=== PATIENT | female | born 1940 | race Caucasian/White ===

== ENCOUNTER 2016-05-26 12:04 | Emergency (ER) | payer MEDICARE, OTHER ==
[2016-05-26 12:42] VITALS: BP 181/79; PULSE 93; RESP 18; TEMP 99.1
[2016-05-26] MEDS ORDERED: DIPH,PERTUS(ACELL)TETVAC-LF 0.5 ML VIAL IM ONE (13:39)
--- NOTE | 2016-05-26 13:44 | ED ---
Wound/Laceration HPI - General Chief Complaint: Wound/Laceration Stated Complaint: laceration Time Seen by Provider: 05/26/16 13:08 Source: patient, RN notes reviewed Mode of arrival: ambulatory Limitations: no limitations - History of Present Illness Initial Comments: Patient is a 76-year-old female presents emergency room for evaluation of left finger laceration. Patient states she was cutting watermelon and sliced her finger. Patient denies any significant pain. Patient denies any numbness or tingling in her finger. Patient states she still has full range of motion of her finger. Patient is not sure when her last tetanus vaccine was. Patient denies any other injuries during incident. Patient denies taking blood thinners. - Related Data Home Medications Medication Instructions Recorded Confirmed Ascorbic Acid [Vitamin C] 500 mg PO DAILY 11/08/15 01/04/16 Multivit with Calcium,Iron,Min 1 each PO DAILY 11/08/15 01/04/16 [Women's Daily Multivitamin] Tums 1 tab PO DIRECTED PRN 01/04/16 01/04/16 Vitamin D (Unknown Dose) 1 cap PO DAILY 01/04/16 01/04/16 Allergies Allergy/AdvReac Type Severity Reaction Status Date / Time levofloxacin [From Levaquin] Allergy Rash/Hives Verified 01/04/16 13:32 Additives in inhalers Allergy Rapid Uncoded 01/04/16 13:32 Heart Rate Review of Systems ROS Statement: Those systems with pertinent positive or pertinent negative responses have been documented in the HPI. ROS Other: All systems not noted in ROS Statement are negative. Past Medical History Past Medical History: GERD/Reflux, Osteoarthritis (OA) Additional Past Medical History / Comment(s): Seasonal allergies, Hiatal Hernia , episode of tachycardia., neck pain in certain positions. History of Any Multi-Drug Resistant Organisms: None Reported Past Surgical History: Hysterectomy Additional Past Surgical History / Comment(s): Colonoscopy, right cataract Past Anesthesia/Blood Transfusion Reactions: Family History of Problems w/ Anesthesia Additional Past Anesthesia/Blood Transfusion Reaction / Comment(s): States the top of her head was numb after cataract surgery. Pt. states her mother's heart stopped during gallbladder surgery. Past Psychological History: No Psychological Hx Reported Smoking Status: Never smoker Past Alcohol Use History: None Reported Past Drug Use History: None Reported - Past Family History Mother Family Medical History: Coronary Artery Disease (CAD) General Exam - General Exam Comments Initial Comments: Sitting in exam room in no acute distress. Limitations: no limitations General appearance: alert, in no apparent distress Head exam: Present: atraumatic, normocephalic, normal inspection Eye exam: Present: normal appearance ENT exam: Present: normal exam Neck exam: Present: normal inspection Respiratory exam: Present: normal lung sounds bilaterally. Absent: respiratory distress Cardiovascular Exam: Present: regular rate, normal rhythm, normal heart sounds Left Hand Wrist exam: Present: full ROM, laceration (2 cm open laceration on the palmar portion of the proximal phalanx of the fourth digit). Absent: tenderness Neuro motor exam: Present: wrist extension intact, thumb opposition intact, thumb IP flexion intact, thumb adduction intact, fingers 2-5 abduction intact Vascular: Present: normal capillary refill (Capillary refill less than 2 seconds ), radial pulse (2+), ulnar pulse (2+) Back exam: Present: normal inspection Neurological exam: Present: alert, oriented X3, CN II-XII intact, normal gait Psychiatric exam: Present: normal affect, normal mood Skin exam: Present: warm, dry. Absent: rash Course Vital Signs 05/26/16 12:40 Temperature 99.1 F Pulse Rate 93 Respiratory 18 Rate Blood Pressure 181/79 O2 Sat by Pulse 98 Oximetry Procedures - Laceration Laceration #1 Consent Obtained: verbal consent Indication: laceration Site: other (left fourth digit) Size (cm): 2 Description: linear Depth: simple, single layer Anesthetic Used: lidocaine 1% Anesthesia Technique: local infiltration Amount (mls): 1 Pre-repair: wound explored, irrigated extensively Type of Sutures: nylon Size of Sutures: 5-0 Number of Sutures: 7 Technique: simple, interrupted Patient Tolerated Procedure: well, no complications Medical Decision Making - Medical Decision Making Patient is 76-year-old female since emergency room for violation finger laceration. Laceration repaired with sutures. Patient updated on her tetanus vaccine. Advised patient to return in 10-12 days for suture removal. Patient has full range of motion of finger. Strength intact. Patient states she understand everything that was discussed with her. Return parameters discussed. Case discussed with Dr. Ricketts. Disposition Clinical Impression: Finger laceration Disposition: HOME SELF-CARE Condition: Good Instructions: Care For Your Stitches (ED), Laceration (ED) Additional Instructions: Keep suture area clean and dry. Clean suture area with a damp cloth. Please return in 10-12 days for suture removal. Take Tylenol or Motrin as needed for discomfort. Please follow up with primary care provider in 1-2 days. If any new symptom arises or symptoms worsen, return to ER as soon as possible. Referrals: Gilberto Fowler III, MD [Primary Care Provider] - 1-2 days Time of Disposition: 14:31
== END 2016-05-26 14:43 | disposition home or self-care (01) ==
LOC: EC 12:04
DX: S61.215A Laceration without foreign body of left ring finger without damage to nail, initial encounter (principal); Z23 Encounter for immunization; Z79.899 Other long term (current) drug therapy; Z88.1 Allergy status to other antibiotic agents; Z88.8 Allergy status to other drugs, medicaments and biological substances; W26.0XXA Contact with knife, initial encounter; Y93.89 Activity, other specified
CPT/HCPCS: 12001; 90471; 90715; 99282

== ENCOUNTER → 2016-09-17 | Outpatient (CLI) | payer MEDICARE ==
[2016-09-17 10:41] LABS: Basophils % (A) 1 %; CH 30.6; CHCM 32.9; Eosinophils # (A) 0.1 k/uL (0-0.7); Eosinophils % (A) 2 %; HDW 2.14; HGB 14.3 gm/dL (11.4-16.0); Luc # (Auto) 0.13; Luc % (Auto) 3; Lymphocytes % (A) 24 %; MCH 31.8 pg (25.0-35.0); MCV 93.6 fL (80.0-100.0); Mean Platelet Volume 9.9; Monocytes # (A) 0.5 k/uL (0-1.0); Monocytes % (A) 11 %; Neutrophils # (A) 2.4 k/uL (1.3-7.7); Neutrophils % (A) 59 %; RBC 4.49 m/uL (3.80-5.40); RDW 13.9 % (11.5-15.5); WBC 4.1 k/uL (3.8-10.6); WBC (Perox) 4.13
[2016-09-17 11:14] LABS: ALT 20 U/L (9-52); AST 26 U/L (14-36); Alkaline Phosphatase 75 U/L (38-126); Anion Gap 12 mmol/L; Blood Urea Nitrogen 14 mg/dL (7-17); Calcium 9.2 mg/dL (8.4-10.2); Carbon Dioxide 23 mmol/L (22-30); Chloride 106 mmol/L (98-107); Cholesterol 225 mg/dL (<200); Glucose 88 mg/dL (74-99); HDL Cholesterol 65 mg/dL (40-60); Non-African American GFR(MDRD) >60 (>60 ml/min/1.73 sqM); Potassium 4.9 mmol/L (3.5-5.1); Sodium 141 mmol/L (137-145); Total Bilirubin 0.7 mg/dL (0.2-1.3); Total Protein 7.3 g/dL (6.3-8.2); Triglycerides 83 mg/dL (<150)
== END | disposition home or self-care (01) ==
LOC: LABWHC1 09:45
PROVIDERS: ATTEND Family Medicine
DX: R10.11 Right upper quadrant pain (principal); N39.0 Urinary tract infection, site not specified; R35.0 Frequency of micturition; S39.012A Strain of muscle, fascia and tendon of lower back, initial encounter; Z48.24 Encounter for aftercare following lung transplant
CPT/HCPCS: 36415; 80053; 80061; 85025

== ENCOUNTER → 2016-09-23 | Outpatient (CLI) | payer MEDICARE ==
--- NOTE | 2016-09-23 07:32 | US ---
EXAMINATION TYPE: US abdomen limited DATE OF EXAM: 09/23/2016 COMPARISON: CT from 2011 CLINICAL HISTORY: RUQ Pain R10.11. EXAM MEASUREMENTS: Liver Length: 10.9 cm Gallbladder Wall: 0.2 cm CBD: 0.4 cm Right Kidney: 10.6 x 3.6 x 5.5 cm Pancreas: visualized portions wnl Liver: wnl Gallbladder: No stones seen Evidence for sonographic Schmitz's sign: No CBD: wnl Right Kidney: No hydronephrosis or masses seen as visualized, lower pole obscured by bowel Limited views of the pancreas are unremarkable. The liver is normal in size without biliary dilatation. The gallbladder is normal without evidence of cholelithiasis. The distal common hepatic duct measures 4 mm. The gallbladder wall measures 2 mm. There is no sonographic Schmitz's sign. The right kidney is unremarkable. IMPRESSION: NORMAL RIGHT UPPER QUADRANT ULTRASOUND.
== END | disposition home or self-care (01) ==
LOC: RADUSWWP 06:51
PROVIDERS: ATTEND Family Medicine
DX: R10.11 Right upper quadrant pain (principal)
CPT/HCPCS: 76705

== ENCOUNTER 2016-10-01 06:47 | Inpatient (IN) | payer MEDICARE ==
[2016-10-01] MEDS ORDERED: DILTIAZEM 5 MG/ML 5 ML VIAL IVP STA ×2 (07:12→08:18)
[2016-10-01] MEDS ORDERED: SODIUM CHLORIDE 0.9% 1,000 ML IV STA ×2 (07:19)
[2016-10-01 07:31] LABS: Basophils % (A) 1 %; CH 31.1; CHCM 33.1; Eosinophils # (A) 0.1 k/uL (0-0.7); Eosinophils % (A) 2 %; HCT 42.5 % (34.0-46.0); HDW 2.15; HGB 14.4 gm/dL (11.4-16.0); Luc # (Auto) 0.19; Luc % (Auto) 4; Lymphocytes # (A) 1.4 k/uL (1.0-4.8); Lymphocytes % (A) 27 %; MCHC 33.9 g/dL (31.0-37.0); MCV 94.5 fL (80.0-100.0); Mean Platelet Volume 8.5; Monocytes # (A) 0.5 k/uL (0-1.0); Monocytes % (A) 9 %; Neutrophils # (A) 2.9 k/uL (1.3-7.7); Neutrophils % (A) 57 %; RDW 14.1 % (11.5-15.5); WBC (Perox) 4.74
[2016-10-01 07:36] LABS: Partial Thromboplastin Time 22.6 sec (22.0-30.0); Prothrombin Time 10.2 sec (9.0-12.0)
[2016-10-01 07:37] LABS: ALT 42 U/L (9-52); AST 33 U/L (14-36); Alkaline Phosphatase 81 U/L (38-126); Anion Gap 11 mmol/L; Blood Urea Nitrogen 21 mg/dL (7-17); Calcium 8.9 mg/dL (8.4-10.2); Carbon Dioxide 24 mmol/L (22-30); Chloride 109 mmol/L (98-107); Glucose 100 mg/dL (74-99); Magnesium 1.8 mg/dL (1.6-2.3); Non-African American GFR(MDRD) >60 (>60 ml/min/1.73 sqM); Phosphorous 3.6 mg/dL (2.5-4.5); Potassium 3.7 mmol/L (3.5-5.1); Sodium 144 mmol/L (137-145); Total Bilirubin 0.6 mg/dL (0.2-1.3); Total Protein 6.9 g/dL (6.3-8.2)
[2016-10-01 07:50] LABS: Creatine Kinase 78 U/L (30-135)
--- NOTE | 2016-10-01 07:52 | ED ---
General Adult HPI - General Chief complaint: Chest Pain Stated complaint: Chest Pain Time Seen by Provider: 10/01/16 07:13 Source: patient, RN notes reviewed, old records reviewed Mode of arrival: wheelchair Limitations: no limitations - History of Present Illness Initial comments: This is a 76-year-old female to the ER for evaluation. Presents today for evaluation of heart racing and palpitations. Patient denies formal diagnosis. Patient states she had some heart racing when she was younger. Couple episodes of the past week where she felt like she was going pass out but denies chest pain or shortness of breath. No new medications, no change in medications. No fevers or cough or congestion. No recent travel history or sick contacts - Related Data Home Medications Medication Instructions Recorded Confirmed Multivit with Calcium,Iron,Min 1 tab PO DAILY 11/08/15 10/01/16 [Women's Daily Multivitamin] Areds 2 Vitamin 1 tab PO Q7D 10/01/16 10/01/16 Cholecalciferol [Vitamin D3] 1,000 unit PO DAILY 10/01/16 10/01/16 Allergies Allergy/AdvReac Type Severity Reaction Status Date / Time levofloxacin [From Levaquin] Allergy Rash/Hives Verified 10/01/16 07:29 Additives in inhalers Allergy Rapid Uncoded 10/01/16 06:52 Heart Rate Review of Systems ROS Statement: Those systems with pertinent positive or pertinent negative responses have been documented in the HPI. ROS Other: All systems not noted in ROS Statement are negative. Past Medical History Past Medical History: GERD/Reflux, Osteoarthritis (OA) Additional Past Medical History / Comment(s): Seasonal allergies, Hiatal Hernia , episode of tachycardia., neck pain in certain positions. History of Any Multi-Drug Resistant Organisms: None Reported Past Surgical History: Hysterectomy Additional Past Surgical History / Comment(s): Colonoscopy, right cataract Past Anesthesia/Blood Transfusion Reactions: Family History of Problems w/ Anesthesia Additional Past Anesthesia/Blood Transfusion Reaction / Comment(s): States the top of her head was numb after cataract surgery. Pt. states her mother's heart stopped during gallbladder surgery. Past Psychological History: No Psychological Hx Reported Smoking Status: Never smoker Past Alcohol Use History: None Reported Past Drug Use History: None Reported - Past Family History Mother Family Medical History: Coronary Artery Disease (CAD) General Exam Limitations: no limitations General appearance: alert, in no apparent distress, anxious Head exam: Present: atraumatic, normocephalic, normal inspection Eye exam: Present: normal appearance, PERRL, EOMI. Absent: scleral icterus, conjunctival injection, periorbital swelling ENT exam: Present: normal exam, mucous membranes moist Neck exam: Present: normal inspection. Absent: tenderness, meningismus, lymphadenopathy Respiratory exam: Present: normal lung sounds bilaterally. Absent: respiratory distress, wheezes, rales, rhonchi, stridor Cardiovascular Exam: Present: tachycardia, irregular rhythm, normal heart sounds. Absent: systolic murmur, diastolic murmur, rubs, gallop, clicks GI/Abdominal exam: Present: soft, normal bowel sounds. Absent: distended, tenderness, guarding, rebound, rigid Extremities exam: Present: normal inspection, full ROM, normal capillary refill. Absent: tenderness, pedal edema, joint swelling, calf tenderness Back exam: Present: normal inspection Neurological exam: Present: alert, oriented X3, CN II-XII intact Psychiatric exam: Present: normal affect, normal mood Skin exam: Present: warm, dry, intact, normal color. Absent: rash Course Vital Signs 10/01/16 10/01/16 10/01/16 06:49 06:55 06:58 Temperature 97.8 F 98.0 F Pulse Rate 128 H 140 H Respiratory 18 17 18 Rate Blood Pressure 189/90 150/74 O2 Sat by Pulse 100 96 Oximetry 10/01/16 10/01/16 10/01/16 07:13 07:15 07:16 Temperature Pulse Rate 142 H 135 H 114 H Respiratory 20 20 20 Rate Blood Pressure 158/82 162/55 129/60 O2 Sat by Pulse 99 100 100 Oximetry 10/01/16 10/01/16 10/01/16 07:30 07:35 07:39 Temperature Pulse Rate 120 H 128 H 100 Respiratory 18 18 18 Rate Blood Pressure 132/64 110/58 127/57 O2 Sat by Pulse 100 100 100 Oximetry 10/01/16 10/01/16 10/01/16 07:40 08:12 08:16 Temperature Pulse Rate 130 H 120 H 113 H Respiratory 18 18 Rate Blood Pressure 132/70 135/68 O2 Sat by Pulse 99 100 Oximetry - Reevaluation(s) Reevaluation #1: 10/01/16 09:22 Patient having adequate rate control at this time. Reevaluation #2: 10/01/16 09:22 Discussed with family greater than 50 minutes regarding diagnosis, prognosis, questions answered EKG Findings - EKG Comments: EKG Findings:: EKG shows A. fib with RVR rate 153, QRS 66, QTc 463 Medical Decision Making - Medical Decision Making 76 female in the ER for evaluation of palpitations heart racing, positive A. fib with RVR. Patient will be admitted for cardiology evaluation. Telemetry and trending of troponins - Lab Data Result diagrams: 10/01/16 07:09 10/01/16 07:09 Lab Results 10/01/16 10/01/16 10/01/16 Range/Units 07:09 07:09 07:09 WBC 5.0 (3.8-10.6) k/uL RBC 4.50 (3.80-5.40) m/uL Hgb 14.4 (11.4-16.0) gm/dL Hct 42.5 (34.0-46.0) % MCV 94.5 (80.0-100.0) fL MCH 32.0 (25.0-35.0) pg MCHC 33.9 (31.0-37.0) g/dL RDW 14.1 (11.5-15.5) % Plt Count 201 (150-450) k/uL Neutrophils % 57 % Lymphocytes % 27 % Monocytes % 9 % Eosinophils % 2 % Basophils % 1 % Neutrophils # 2.9 (1.3-7.7) k/uL Lymphocytes # 1.4 (1.0-4.8) k/uL Monocytes # 0.5 (0-1.0) k/uL Eosinophils # 0.1 (0-0.7) k/uL Basophils # 0.0 (0-0.2) k/uL PT (9.0-12.0) sec INR (<1.2) APTT (22.0-30.0) sec Sodium 144 (137-145) mmol/L Potassium 3.7 (3.5-5.1) mmol/L Chloride 109 H (98-107) mmol/L Carbon Dioxide 24 (22-30) mmol/L Anion Gap 11 mmol/L BUN 21 H (7-17) mg/dL Creatinine 0.68 (0.52-1.04) mg/dL Est GFR (MDRD) Af Amer >60 (>60 ml/min/1.73 sqM) Est GFR (MDRD) Non-Af >60 (>60 ml/min/1.73 sqM) Glucose 100 H (74-99) mg/dL Calcium 8.9 (8.4-10.2) mg/dL Phosphorus 3.6 (2.5-4.5) mg/dL Magnesium 1.8 (1.6-2.3) mg/dL Total Bilirubin 0.6 (0.2-1.3) mg/dL AST 33 (14-36) U/L ALT 42 (9-52) U/L Alkaline Phosphatase 81 (38-126) U/L Total Creatine Kinase 78 (30-135) U/L CK-MB (CK-2) 1.2 (0.0-2.4) ng/mL CK-MB (CK-2) Rel Index 1.5 Troponin I <0.012 (0.000-0.034) ng/mL Total Protein 6.9 (6.3-8.2) g/dL Albumin 4.1 (3.5-5.0) g/dL TSH 3.580 (0.465-4.680) mIU/L 10/01/16 Range/Units 07:09 WBC (3.8-10.6) k/uL RBC (3.80-5.40) m/uL Hgb (11.4-16.0) gm/dL Hct (34.0-46.0) % MCV (80.0-100.0) fL MCH (25.0-35.0) pg MCHC (31.0-37.0) g/dL RDW (11.5-15.5) % Plt Count (150-450) k/uL Neutrophils % % Lymphocytes % % Monocytes % % Eosinophils % % Basophils % % Neutrophils # (1.3-7.7) k/uL Lymphocytes # (1.0-4.8) k/uL Monocytes # (0-1.0) k/uL Eosinophils # (0-0.7) k/uL Basophils # (0-0.2) k/uL PT 10.2 (9.0-12.0) sec INR 1.0 (<1.2) APTT 22.6 (22.0-30.0) sec Sodium (137-145) mmol/L Potassium (3.5-5.1) mmol/L Chloride (98-107) mmol/L Carbon Dioxide (22-30) mmol/L Anion Gap mmol/L BUN (7-17) mg/dL Creatinine (0.52-1.04) mg/dL Est GFR (MDRD) Af Amer (>60 ml/min/1.73 sqM) Est GFR (MDRD) Non-Af (>60 ml/min/1.73 sqM) Glucose (74-99) mg/dL Calcium (8.4-10.2) mg/dL Phosphorus (2.5-4.5) mg/dL Magnesium (1.6-2.3) mg/dL Total Bilirubin (0.2-1.3) mg/dL AST (14-36) U/L ALT (9-52) U/L Alkaline Phosphatase (38-126) U/L Total Creatine Kinase (30-135) U/L CK-MB (CK-2) (0.0-2.4) ng/mL CK-MB (CK-2) Rel Index Troponin I (0.000-0.034) ng/mL Total Protein (6.3-8.2) g/dL Albumin (3.5-5.0) g/dL TSH (0.465-4.680) mIU/L - Radiology Data Radiology results: report reviewed (Chest x-ray is negative for acute disease), image reviewed Critical Care Time Critical Care Time: Yes Total Critical Care Time: 31 Disposition Clinical Impression: Chest pain, Atrial fibrillation with RVR Disposition: ADMITTED IP TO THIS HOSP Condition: Fair Instructions: Chest Pain (ED) Referrals: Gilberto Fowler III, MD [Primary Care Provider] - 1-2 days
[2016-10-01] MEDS ORDERED: DILTIAZEM 125 MG in SODIUM CHLORIDE 0.9% 100 ML IV ONE (08:00)
[2016-10-01 08:03] LABS: Creatine Kinase MB 1.2 ng/mL (0.0-2.4); Troponin I <0.012 ng/mL (0.000-0.034)
[2016-10-01] MEDS ORDERED: NITROGLYCERIN SL TABS 0.4 MG TAB SUBLINGUAL PRN (09:19)
[2016-10-01] MEDS ORDERED: ASPIRIN 81 MG CHEW PO STA (09:19)
[2016-10-01] MEDS ORDERED: HEPARIN SODIUM,PORCINE 5,000 UNIT/ML 1 ML VIAL IV PRN (09:19)
[2016-10-01] MEDS ORDERED: HEPARIN SODIUM,PORCINE 5,000 UNIT/ML 1 ML VIAL IV ONE (09:19)
[2016-10-01] MEDS ORDERED: HEPARIN SODIUM,PORCINE/D5W PMX 25,000 UNIT in DEXTROSE/WATER 1 500ML.BAG IV SCH (09:30)
[2016-10-01] MEDS ORDERED: APIXABAN 5 MG TAB PO STA (12:50)
[2016-10-01] MEDS ORDERED: METOPROLOL TARTRATE 50 MG TAB PO STA (13:00)
[2016-10-01 14:06] VITALS: RESP 16
--- NOTE | 2016-10-01 14:08 | P.HPIM ---
History of Present Illness 76-year-old female came in with compensative heart racing and palpitations, and chest pressure like sensation patient does not have any significant past medical history. Patient is found to be in atrial fibrillation presently sinus rhythm on 20 20 mg IV piggyback off Cardizem. Patient had chest pressure like sensation. Patient was treated for urinary tract infection last week. Patient denied any fever presently patient denied any specific pain dysuria. Patient denied any nausea vomiting. Patient is not dehydrated at this point of time creatinine within normal limits. And patient is being switched to metoprolol 50 twice a day, will check for eliquis approval, she is approved eliquispatient will be discharged on eliquis. Echo cardiac exam will be obtained to assess LV function and any valvular abnormalities. Patient denied any shortness of breath orthopnea or PND. Review of Systems REVIEW OF SYSTEMS: CONSTITUTIONAL: No fever, no malaise, no fatigue. HEENT: No recent visual problems or hearing problems. Denied any sore throat. CARDIOVASCULAR: No orthopnea, PND, , no syncope. PULMONARY: No shortness of breath, no cough, no hemoptysis. GASTROINTESTINAL: No diarrhea, no nausea, no vomiting, no abdominal pain. Normoactive bowel sounds. NEUROLOGICAL: No headaches, no weakness, no numbness. HEMATOLOGICAL: Denies any bleeding or petechiae. GENITOURINARY: Denies any burning micturition, frequency, or urgency. MUSCULOSKELETAL/RHEUMATOLOGICAL: Denies any joint pain, swelling, or any muscle pain. ENDOCRINE: Denies any polyuria or polydipsia. The rest of the 14-point review of systems is negative. Past Medical History Past Medical History: GERD/Reflux, Osteoarthritis (OA) Additional Past Medical History / Comment(s): Seasonal allergies, Hiatal Hernia , episode of tachycardia., neck pain in certain positions. History of Any Multi-Drug Resistant Organisms: None Reported Past Surgical History: Hysterectomy Additional Past Surgical History / Comment(s): Colonoscopy, right cataract Past Anesthesia/Blood Transfusion Reactions: Family History of Problems w/ Anesthesia Additional Past Anesthesia/Blood Transfusion Reaction / Comment(s): States the top of her head was numb after cataract surgery. Pt. states her mother's heart stopped during gallbladder surgery. Past Psychological History: No Psychological Hx Reported Smoking Status: Never smoker Past Alcohol Use History: None Reported Past Drug Use History: None Reported - Past Family History Mother Family Medical History: Coronary Artery Disease (CAD) Medications and Allergies Home Medications Medication Instructions Recorded Confirmed Type Multivit with Calcium,Iron,Min 1 tab PO DAILY 11/08/15 10/01/16 History [Women's Daily Multivitamin] Areds 2 Vitamin 1 tab PO Q7D 10/01/16 10/01/16 History Cholecalciferol [Vitamin D3] 1,000 unit PO DAILY 10/01/16 10/01/16 History Allergies Allergy/AdvReac Type Severity Reaction Status Date / Time [facility] Allergy Rash/Hives Verified 10/01/16 07:29 Additives in inhalers Allergy Rapid Uncoded 10/01/16 06:52 Heart Rate Physical Exam Vitals: Vital Signs Temp Pulse Resp BP Pulse Ox 10/01/16 13:15 98.9 F 70 18 119/60 97 10/01/16 12:26 98.8 F 60 18 110/74 97 10/01/16 11:26 62 18 122/60 62 L 10/01/16 10:46 78 18 109/74 97 10/01/16 10:26 82 18 128/59 100 10/01/16 10:06 83 18 128/63 99 10/01/16 09:46 88 18 121/57 98 10/01/16 09:26 78 18 119/58 100 10/01/16 09:06 98.0 F 98 18 117/58 99 10/01/16 08:46 98 18 110/80 98 10/01/16 08:26 98 18 103/52 100 10/01/16 08:16 113 H 18 135/68 100 10/01/16 08:12 120 H 18 132/70 99 10/01/16 08:01 118 H 18 138/64 100 10/01/16 07:56 112 H 18 138/70 100 10/01/16 07:51 120 H 18 126/64 100 10/01/16 07:46 114 H 18 133/77 100 10/01/16 07:40 130 H 10/01/16 07:39 100 18 127/57 100 10/01/16 07:35 128 H 18 110/58 100 10/01/16 07:30 120 H 18 132/64 100 10/01/16 07:16 114 H 20 129/60 100 10/01/16 07:15 135 H 20 162/55 100 10/01/16 07:13 142 H 20 158/82 99 10/01/16 06:58 98.0 F 140 H 18 150/74 96 10/01/16 06:55 17 10/01/16 06:49 97.8 F 128 H 18 189/90 100 Intake and Output 09/30/16 10/01/16 10/01/16 22:59 06:59 14:59 Intake Total 9.833 Balance 9.833 Intake: Intake, IV Titration 9.833 Amount Diltiazem 125 mg In 9.833 Sodium Chloride 0.9% 100 ml @ 5 MG/HR 5 mls/hr IV .Q24H ONE Rx#:[id number] Other: Weight 68.039 kg PHYSICAL EXAMINATION: GENERAL: The patient is alert and oriented x3, not in any acute distress. Well developed, well nourished. HEENT: Pupils are round and equally reacting to light. EOMI. No scleral icterus. No conjunctival pallor. Normocephalic, atraumatic. No pharyngeal erythema. No thyromegaly. CARDIOVASCULAR: S1 and S2 present. No murmurs, rubs, or gallops. PULMONARY: Chest is clear to auscultation, no wheezing or crackles. ABDOMEN: Soft, nontender, nondistended, normoactive bowel sounds. No palpable organomegaly. MUSCULOSKELETAL: No joint swelling or deformity. EXTREMITIES: No cyanosis, clubbing, or pedal edema. NEUROLOGICAL: Gross neurological examination did not reveal any focal deficits. SKIN: No rashes. Results CBC & Chem 7: 10/01/16 07:09 10/01/16 07:09 Labs: Abnormal Lab Results - Last 24 Hours (Table) 10/01/16 10/01/16 Range/Units 07:09 13:17 APTT 59.2 H (22.0-30.0) sec Chloride 109 H (98-107) mmol/L BUN 21 H (7-17) mg/dL Glucose 100 H (74-99) mg/dL Assessment and Plan Plan: 1 New-onset atrial fibrillation: Patient will be started on metoprolol and Cardizem will will be discontinued. Anticoagulations as mentioned in the interval history. TSH was ordered. #2 hyperchloremia due to IV fluids which will be discontinued. #3 chest pain probably related to palpitations.
[2016-10-01 14:25] LABS: Creatine Kinase MB 1.1 ng/mL (0.0-2.4); Troponin I 0.015 ng/mL (0.000-0.034)
[2016-10-01] MEDS: APIXABAN 5 MG TAB PO SCH ×2 (14:52→21:05)
--- NOTE | 2016-10-01 15:27 | P.CRDCN ---
History of Present Illness Consult date: 10/01/16 History of present illness: 76-year-old female with no significant past medical history except intermittent palpitations and " tachycardias", woke up around 5:00 last night with complaints of palpitations. Patient has some chest tightness and shortness of breath. Patient was given IV Cardizem and she converted back to sinus rhythm. Patient is currently maintaining sinus rhythm and is feeling well. She is on IV heparin. She is being considered for Eliquis. Her cardiac enzymes are negative. Echocardiogram was done but results are pending at this time. She doesn't seem to be in acute distress. Review of Systems REVIEW OF SYSTEMS: CONSTITUTIONAL:. Patient is doing well. No complaints of fever or chills EYES: Denies diplopia, blurring of vision EARS, NOSE, MOUTH, THROAT: Denies headaches, denies sore throat. CARDIOVASCULAR: As per HPI RESPIRATORY: Denies shortness of breath, denies cough. GASTROINTESTINAL: Denies change in appetite, denies abdominal pain, denies diarrhea GENITOURINARY: Denies hematuria, denies infections. MUSKULOSKELETAL: Denies pain, denies swelling. Denies any cramps or claudication INTEGUMENTARY: Denies rash, denies eczema. NEUROLOGICAL: Denies focal weakness, or visual disturbance. Denies any dizziness or syncope PSYCHIATRIC: Denies anxiety, denies depression. HEMATOLOGIC/LYMPHATIC: Denies any bleeding, denies enlarged lymph nodes. Past Medical History Past Medical History: GERD/Reflux, Osteoarthritis (OA) Additional Past Medical History / Comment(s): Seasonal allergies, Hiatal Hernia , episode of tachycardia., neck pain in certain positions.boipsy on right foot and under left breast History of Any Multi-Drug Resistant Organisms: None Reported Past Surgical History: Hysterectomy Additional Past Surgical History / Comment(s): Colonoscopy, cataract removed for both eyes Past Anesthesia/Blood Transfusion Reactions: Family History of Problems w/ Anesthesia Additional Past Anesthesia/Blood Transfusion Reaction / Comment(s): States the top of her head was numb after cataract surgery. Pt. states her mother's heart stopped during gallbladder surgery. Smoking Status: Never smoker - Past Family History Mother Family Medical History: Coronary Artery Disease (CAD) Medications and Allergies Home Medications Medication Instructions Recorded Confirmed Type Multivit with Calcium,Iron,Min 1 tab PO DAILY 11/08/15 10/01/16 History [Women's Daily Multivitamin] Areds 2 Vitamin 1 tab PO Q7D 10/01/16 10/01/16 History Cholecalciferol [Vitamin D3] 1,000 unit PO DAILY 10/01/16 10/01/16 History Allergies Allergy/AdvReac Type Severity Reaction Status Date / Time levofloxacin [From Levaquin] Allergy Rash/Hives Verified 10/01/16 07:29 Additives in inhalers Allergy Rapid Uncoded 10/01/16 06:52 Heart Rate Physical Exam Vitals: Vital Signs Temp Pulse Pulse Resp BP BP Pulse Ox 10/01/16 14:00 97 F L 69 16 123/58 99 10/01/16 13:15 98.9 F 70 18 119/60 97 10/01/16 12:26 98.8 F 60 18 110/74 97 10/01/16 11:26 62 18 122/60 62 L 10/01/16 10:46 78 18 109/74 97 10/01/16 10:26 82 18 128/59 100 10/01/16 10:06 83 18 128/63 99 10/01/16 09:46 88 18 121/57 98 10/01/16 09:26 78 18 119/58 100 10/01/16 09:06 98.0 F 98 18 117/58 99 10/01/16 08:46 98 18 110/80 98 10/01/16 08:26 98 18 103/52 100 10/01/16 08:16 113 H 18 135/68 100 10/01/16 08:12 120 H 18 132/70 99 10/01/16 08:01 118 H 18 138/64 100 10/01/16 07:56 112 H 18 138/70 100 10/01/16 07:51 120 H 18 126/64 100 10/01/16 07:46 114 H 18 133/77 100 10/01/16 07:40 130 H 10/01/16 07:39 100 18 127/57 100 10/01/16 07:35 128 H 18 110/58 100 10/01/16 07:30 120 H 18 132/64 100 10/01/16 07:16 114 H 20 129/60 100 10/01/16 07:15 135 H 20 162/55 100 10/01/16 07:13 142 H 20 158/82 99 10/01/16 06:58 98.0 F 140 H 18 150/74 96 10/01/16 06:55 17 10/01/16 06:49 97.8 F 128 H 18 189/90 100 Intake and Output 10/01/16 10/01/16 10/01/16 06:59 14:59 22:59 Intake Total 89.529 Balance 89.529 Intake: Intake, IV Titration 89.529 Amount Diltiazem 125 mg In 9.833 Sodium Chloride 0.9% 100 ml @ 5 MG/HR 5 mls/hr IV .Q24H [facility] Rx#:[id number] Heparin Sodium,Porcine/ 79.696 D5w Pmx 25,000 unit In Dextrose/Water 1 500ml. bag @ 12 UNITS/KG/HR 16. 32 mls/hr IV .Q24H [facility] Rx #:[id number] Other: Voiding Method Toilet Weight 68.039 kg GENERAL EXAM: Patient is alert and oriented and doesn't appear to be in any acute distress HEENT: Normocephalic. Normal reaction of pupils, equal size, normal range of extraocular motion. No erythema or exudates in the throat. NECK: No masses, no nuchal rigidity. CHEST: No chest wall deformity. LUNGS: Equal air entry with no crackles or wheeze. HEART: S1 and S2 normal with no audible mumurs or gallops. Regular rhythm, femorals equal on both sides.. ABDOMEN: No hepatosplenomegaly, normal bowel sounds, no guarding or rigidity. SKIN: No rashes CENTRAL NERVOUS SYSTEM: No focal deficits. EXTREMITIES: No cyanosis, clubbing or edema. Results 10/01/16 07:09 10/01/16 07:09 Cardiac Enzymes 10/01/16 10/01/16 10/01/16 Range/Units 07:09 07:09 13:17 AST 33 (14-36) U/L CK-MB (CK-2) 1.2 1.1 (0.0-2.4) ng/mL Troponin I <0.012 0.015 (0.000-0.034) ng/mL Coagulation 10/01/16 10/01/16 Range/Units 07:09 13:17 PT 10.2 (9.0-12.0) sec APTT 22.6 59.2 H (22.0-30.0) sec CBC 10/01/16 Range/Units 07:09 WBC 5.0 (3.8-10.6) k/uL RBC 4.50 (3.80-5.40) m/uL Hgb 14.4 (11.4-16.0) gm/dL Hct 42.5 (34.0-46.0) % Plt Count 201 (150-450) k/uL Comprehensive Metabolic Panel 10/01/16 Range/Units 07:09 Sodium 144 (137-145) mmol/L Potassium 3.7 (3.5-5.1) mmol/L Chloride 109 H (98-107) mmol/L Carbon Dioxide 24 (22-30) mmol/L BUN 21 H (7-17) mg/dL Creatinine 0.68 (0.52-1.04) mg/dL Glucose 100 H (74-99) mg/dL Calcium 8.9 (8.4-10.2) mg/dL AST 33 (14-36) U/L ALT 42 (9-52) U/L Alkaline Phosphatase 81 (38-126) U/L Total Protein 6.9 (6.3-8.2) g/dL Albumin 4.1 (3.5-5.0) g/dL Current Medications Generic Name Dose Route Start Last Admin Trade Name Freq PRN Reason Stop Dose Admin Apixaban 5 mg 10/01/16 21:00 10/01/16 14:52 Eliquis PO 5 mg BID BOBBY Administration Aspirin 325 mg 10/02/16 09:00 Aspirin PO DAILY [facility] Atorvastatin Calcium 80 mg 10/02/16 09:00 Lipitor PO DAILY [facility] Sodium Chloride 1,000 mls @ 100 mls/hr 10/01/16 07:19 10/01/16 07:26 Saline 0.9% IV 10/01/16 17:18 100 mls/hr .Q10H [facility] Administration Metoprolol Tartrate 50 mg 10/01/16 21:00 Lopressor PO BID [facility] Nitroglycerin 0.4 mg 10/01/16 09:19 Nitrostat SUBLINGUAL Q5M PRN Chest Pain Intake and Output 10/01/16 10/01/16 10/01/16 06:59 14:59 22:59 Intake Total 89.529 Balance 89.529 Intake: Intake, IV Titration 89.529 Amount Diltiazem 125 mg In 9.833 Sodium Chloride 0.9% 100 ml @ 5 MG/HR 5 mls/hr IV .Q24H [facility] Rx#:[id number] Heparin Sodium,Porcine/ 79.696 D5w Pmx 25,000 unit In Dextrose/Water 1 500ml. bag @ 12 UNITS/KG/HR 16. 32 mls/hr IV .Q24H [facility] Rx #:[id number] Other: Voiding Method Toilet Weight 68.039 kg 10/01/16 07:09 10/01/16 07:09 EKG Interpretations (text) Atrial fibrillation with rapid ventricular response Assessment and Plan (1) Atrial fibrillation with RVR Status: Acute (2) Chest pain Status: Acute Plan: Patient is maintaining sinus rhythm at this time and is feeling well. We'll wait for the reports of the echocardiogram. If patient remains stable she could be discharged home tomorrow on metoprolol and anticoagulant . Follow-up in the office in one week.
[2016-10-01 19:44] LABS: Creatine Kinase 55 U/L (30-135)
[2016-10-01 19:55] LABS: Creatine Kinase MB 0.8 ng/mL (0.0-2.4); Troponin I <0.012 ng/mL (0.000-0.034)
[2016-10-01] MEDS ORDERED: APIXABAN 5 MG TAB PO SCH (21:00)
[2016-10-01] MEDS: METOPROLOL TARTRATE 50 MG TAB PO SCH (21:05)
[2016-10-02 07:26] LABS: Cholesterol 195 mg/dL (<200); HDL Cholesterol 53 mg/dL (40-60); Triglycerides 68 mg/dL (<150)
[2016-10-02] MEDS ORDERED: ASPIRIN 325 MG TAB PO SCH (09:00)
[2016-10-02] MEDS ORDERED: ATORVASTATIN 80 MG TAB PO SCH (09:00)
[2016-10-02] MEDS: METOPROLOL TARTRATE 50 MG TAB PO SCH (09:32)
[2016-10-02] MEDS: APIXABAN 5 MG TAB PO SCH (09:32)
[2016-10-02 10:55] VITALS: BP 127/60; PULSE 73; TEMP 97
--- NOTE | 2016-10-02 11:01 | ECHOF ---
Referral Reason:medications MEASUREMENTS -------- HEIGHT: 165.1 cm WEIGHT: 68.0 kg BP: 128/59 RVIDd: 2.2 cm (< 3.3) IVSd: 1.0 cm (0.6 - 1.1) LVIDd: 3.8 cm (3.9 - 5.3) LVPWd: 1.0 cm (0.6 - 1.1) IVSs: 1.3 cm LVIDs: 2.8 cm LVPWs: 1.2 cm LA Diam: 2.7 cm (2.7 - 3.8) LAESV Index (A-L): 22.84 ml/m Ao Diam: 2.8 cm (2.0 - 3.7) AV Cusp: 1.8 cm (1.5 - 2.6) LA Diam: 3.2 cm (2.7 - 3.8) MV EXCURSION: 18.395 mm (> 18.000) MV EF SLOPE: 59 mm/s (70 - 150) EPSS: 0.6 cm MV E Brian: 0.90 m/s MV DecT: 309 ms MV A Brian: 1.17 m/s MV E/A Ratio: 0.77 RAP: 5.00 mmHg RVSP: 23.57 mmHg FINDINGS -------- Sinus rhythm. This was a technically good study. LV size, wall thickness and systolic function are normal, with an EF greater than 55%. The right ventricle is normal in size. Normal LA size by volume 22+/-6 ml/m2. The right atrial size is normal. There is mild aortic valve sclerosis. There is no evidence of aortic regurgitation. Mild mitral annular calcification present. Mild mitral regurgitation is present. Mild tricuspid regurgitation present. There is no evidence of pulmonary hypertension. The right ventricular systolic pressure, as measured by Doppler, is 23.57mmHg. There is no pulmonic regurgitation present. The aortic root size is normal. There is no pericardial effusion. CONCLUSIONS -------- 1. LV size, wall thickness and systolic function are normal, with an EF greater than 55%. 2. There is mild aortic valve sclerosis. 3. Mild mitral annular calcification present. 4. Mild mitral regurgitation is present. 5. Mild tricuspid regurgitation present. 6. There is no evidence of pulmonary hypertension. 7. The right ventricular systolic pressure, as measured by Doppler, is 23.57mmHg. DYE MACHINE TENDER: Yeni Sanchez RDCS
--- NOTE | 2016-10-02 12:24 | P.DS ---
Providers Date of admission: 10/01/16 09:22 Attending physician: Michael Ha Consults: 10/01/16 09:19 Consult Physician Urgent Consulting Provider: Clint Genao Consult Reason/Comments: afib Do you want consulting provider notified?: Yes Primary care physician: Gilberto Fowler [facility] Course: 76-year-old female admitted with new-onset atrial fibrillation patient is rate controlled at this point of time and patient is sinus rhythm patient was started on metoprolol 50 twice a day and patient was started on apixaban, echo cardiac exam showed normal ejection fractionand valvular abnormalities. Patient is being discharged today to follow up with Dr. Potter as an outpatient. Patient Condition at Discharge: Fair Plan - Discharge Summary New Discharge Prescriptions: New Apixaban [Eliquis] 5 mg PO BID #60 tab Metoprolol Tartrate [Lopressor] 50 mg PO BID #60 tab Continue Multivit with Calcium,Iron,Min [Women's Daily Multivitamin] 1 tab PO DAILY Cholecalciferol [Vitamin D3] 1,000 unit PO DAILY Areds 2 Vitamin 1 tab PO Q7D Discharge Medication List Multivit with Calcium,Iron,Min [Women's Daily Multivitamin] 1 tab PO DAILY 11/07 [History] Areds 2 Vitamin 1 tab PO Q7D 10/01/16 [History] Cholecalciferol [Vitamin D3] 1,000 unit PO DAILY 10/01/16 [History] Apixaban [Eliquis] 5 mg PO BID #60 tab 10/02/16 [Rx] Metoprolol Tartrate [Lopressor] 50 mg PO BID #60 tab 10/02/16 [Rx] Follow up Appointment(s)/Referral(s): Gilberto Fowler III, MD [Primary Care Provider] - 3 Days Laura Potter MD [STAFF PHYSICIAN] - 10/08/16 3:45 pm Patient Instructions/Handouts: Chest Pain (ED) Activity/Diet/Wound Care/Special Instructions: Free 30 days of Eliquis filled in [facility] pharmacy. Discharge Disposition: HOME SELF-CARE
--- NOTE | 2016-10-02 15:06 | P.PN ---
Subjective Principal diagnosis: A Taylor yu 76-year-old female with no significant past medical history except intermittent palpitations and " tachycardias", woke up around 5:00 last night with complaints of palpitations. Patient has some chest tightness and shortness of breath. Patient was given IV Cardizem and she converted back to sinus rhythm. Patient is currently maintaining sinus rhythm and is feeling well. She is being considered for Eliquis. Her cardiac enzymes are negative. Echocardiogram with Doppler study was performed which revealed an ejection fraction of greater than 55%. From cardiology's perspective, she may be able to be discharged home today. We will make her a follow-up appointment to see Dr. Potter in the office post discharge. Objective - Vital Signs Vital signs: Vital Signs Temp 97 F L 10/02/16 09:25 Pulse 73 10/02/16 09:25 Resp 16 10/02/16 09:25 BP 127/60 10/02/16 09:25 Pulse Ox 95 10/02/16 09:25 Intake & Output 10/01/16 10/02/16 10/02/16 18:59 06:59 18:59 Intake Total 89.529 60 245 Output Total 400 Balance 89.529 -340 245 Intake: Intake, IV Titration 89.529 Amount Diltiazem 125 mg In 9.833 Sodium Chloride 0.9% 100 ml @ 5 MG/HR 5 mls/hr IV .Q24H [facility] Rx#:[id number] Heparin Sodium,Porcine/ 79.696 D5w Pmx 25,000 unit In Dextrose/Water 1 500ml. bag @ 12 UNITS/KG/HR 16. 32 mls/hr IV .Q24H [facility] Rx #:[id number] Oral 60 245 Output: Urine 400 Other: Voiding Method Toilet Toilet Toilet # Voids 1 - Exam PHYSICAL EXAMINATION: HEENT: [Head is atraumatic, normocephalic. Pupils equal, round. Neck is supple. There is no elevated jugular venous pressure.] HEART EXAMINATION: [Heart S1, S2 normal. No murmur or gallop heard.] CHEST EXAMINATION:[ Lungs are clear to auscultation and precussion. No chest wall tenderness is noted on palpation or with deep breathing.] ABDOMEN: [ Soft, nontender. Bowel sounds are heard. No organomegaly noted]. EXTREMITIES:[ 2+ peripheral pulses with no evidence of peripheral edema and no calf tenderness noted]. NEUROLOGIC [patient is awake, alert and oriented -3.] . - Labs CBC & Chem 7: 10/02/16 06:07 10/01/16 07:09 Labs: Abnormal Lab Results - Last 24 Hours (Table) 10/02/16 Range/Units 06:07 LDL Cholesterol, Calc 128 H (0-99) mg/dL Assessment and Plan Plan: Assessment and Plan Plan: Assessment and plan #1 atrial fibrillation with rapid ventricular response, appears to be of new onset for this patient. TSH normal #2 congestive cardiac failure, LV function unknown at this time. #3 hypertension #4 diabetes # 5 obesity #6 UTI, From cardiology's perspective, patient may be able to be discharged home today. We will make her a follow-up appointment to see Dr. Potter in the office post discharge. DNP note has been reviewed, I agree with a documented findings and plan of care. Patient was seen and examined.
[2016-10-03] MEDS ORDERED: ASPIRIN 81 MG CHEW PO SCH (09:00)
== END 2016-10-02 13:04 | disposition home or self-care (01) | DRG 310 ==
LOC: EC 06:47 → 6SEL 09:22
PROVIDERS: ADMIT Hospitalist; ATTEND Hospitalist
DX: I48.91 Unspecified atrial fibrillation (principal); I11.0 Hypertensive heart disease with heart failure; E87.8 Other disorders of electrolyte and fluid balance, not elsewhere classified; I50.9 Heart failure, unspecified; E11.9 Type 2 diabetes mellitus without complications; E66.9 Obesity, unspecified; K21.9 Gastro-esophageal reflux disease without esophagitis; K44.9 Diaphragmatic hernia without obstruction or gangrene; M19.90 Unspecified osteoarthritis, unspecified site; R07.89 Other chest pain; Z88.1 Allergy status to other antibiotic agents; Z88.8 Allergy status to other drugs, medicaments and biological substances; Z82.49 Family history of ischemic heart disease and other diseases of the circulatory system
CPT/HCPCS: 36415; 80053; 80061; 82550; 82553; 83735; 84100; 84443; 84484; 85025; 85049; 85610; 85730; 93005; 93306; 94760; 96365; 96366; 96368; 96376; 99291

== ENCOUNTER 2017-04-27 01:04 | Observation (INO) | payer MEDICARE ==
[2017-04-27] MEDS ORDERED: MAG HYDROX/AL HYDROX/SIMETH 30 ML, HYOSCYAMINE ELIXIR 10 ML, CIMETIDINE HCL 300 MG, LID... PO STA ×4 (01:51)
--- NOTE | 2017-04-27 01:57 | ED ---
Arrhythmia/Palpitations HPI - General Chief Complaint: Arrhythmia/Palpitations Stated Complaint: Palpitations/A-Fib Time Seen by Provider: 04/27/17 01:07 Source: patient Mode of arrival: wheelchair Limitations: no limitations - History of Present Illness MD Complaint: rapid heart beat Onset/Timin -: hour(s) Context: occurred during rest Arrhythmia History: atrial fibrillation Associated Symptoms: nausea/vomiting, other (Epigastric pain) - Related Data Home Medications Medication Instructions Recorded Confirmed Multivit with Calcium,Iron,Min 1 tab PO DAILY 11/08/15 10/01/16 [Women's Daily Multivitamin] Areds 2 Vitamin 1 tab PO Q7D 10/01/16 10/01/16 Cholecalciferol [Vitamin D3] 1,000 unit PO DAILY 10/01/16 10/01/16 Previous Rx's Medication Instructions Recorded Apixaban [Eliquis] 5 mg PO BID #60 tab 10/02/16 Metoprolol Tartrate [Lopressor] 50 mg PO BID #60 tab 10/02/16 Allergies Allergy/AdvReac Type Severity Reaction Status Date / Time levofloxacin [From Levaquin] Allergy Rash/Hives Verified 04/27/17 01:13 Additives in inhalers Allergy Rapid Uncoded 04/27/17 01:13 Heart Rate Review of Systems ROS Statement: Those systems with pertinent positive or pertinent negative responses have been documented in the HPI. ROS Other: All systems not noted in ROS Statement are negative. Constitutional: Denies: fever, chills, weakness Respiratory: Denies: cough, dyspnea Cardiovascular: Reports: palpitations. Denies: dyspnea on exertion, orthopnea, edema, syncope Gastrointestinal: Reports: abdominal pain, nausea. Denies: vomiting, diarrhea, melena, hematochezia Genitourinary: Denies: dysuria, hematuria Musculoskeletal: Denies: back pain Skin: Denies: rash Neurological: Denies: headache Past Medical History Past Medical History: Atrial Fibrillation, GERD/Reflux, Osteoarthritis (OA) Additional Past Medical History / Comment(s): Seasonal allergies, Hiatal Hernia , episode of tachycardia., neck pain in certain positions.boipsy on right foot and under left breast History of Any Multi-Drug Resistant Organisms: None Reported Past Surgical History: Hysterectomy Additional Past Surgical History / Comment(s): Colonoscopy, cataract removed for both eyes Past Anesthesia/Blood Transfusion Reactions: Family History of Problems w/ Anesthesia Additional Past Anesthesia/Blood Transfusion Reaction / Comment(s): States the top of her head was numb after cataract surgery. Pt. states her mother's heart stopped during gallbladder surgery. Past Psychological History: No Psychological Hx Reported Smoking Status: Never smoker Past Alcohol Use History: None Reported Past Drug Use History: None Reported - Past Family History Mother Family Medical History: Coronary Artery Disease (CAD) General Exam Limitations: no limitations General appearance: alert, in no apparent distress Head exam: Present: atraumatic, normocephalic Eye exam: Present: normal appearance. Absent: scleral icterus, conjunctival injection ENT exam: Present: normal oropharynx Neck exam: Present: normal inspection, full ROM Respiratory exam: Present: normal lung sounds bilaterally. Absent: respiratory distress, wheezes, rales, rhonchi, stridor Cardiovascular Exam: Present: regular rate, normal rhythm, normal heart sounds. Absent: systolic murmur, diastolic murmur, rubs, gallop GI/Abdominal exam: Present: soft, tenderness (Epigastric). Absent: distended, guarding, rebound, rigid, mass, pulsatile mass, hernia Extremities exam: Present: normal inspection, normal capillary refill. Absent: pedal edema, calf tenderness Back exam: Present: normal inspection. Absent: CVA tenderness (R), CVA tenderness (L) Neurological exam: Present: alert Skin exam: Present: warm, dry, intact, normal color. Absent: rash Course Vital Signs 04/27/17 04/27/17 04/27/17 01:08 02:32 02:42 Temperature 98.3 F Pulse Rate 118 H 96 87 Respiratory 20 18 18 Rate Blood Pressure 167/76 118/58 115/55 O2 Sat by Pulse 99 98 98 Oximetry EKG Findings - EKG Results: EKG: interpreted by ERMD, sinus rhythm, normal axis, normal ST/T EKG shows: tachycardia (Rate approximately 106) - MS, Pacemaker, Normal: Myocardial infarction: inferior MS (old age indeterminate) (There are Q waves in lead 3 consistent with possible old inferior infarct.) Medical Decision Making - Lab Data Result diagrams: 04/27/17 01:45 04/27/17 01:45 Lab Results 04/27/17 04/27/17 04/27/17 Range/Units 01:45 01:45 01:45 WBC 6.3 (3.8-10.6) k/uL RBC 4.77 (3.80-5.40) m/uL Hgb 14.3 (11.4-16.0) gm/dL Hct 44.4 (34.0-46.0) % MCV 93.2 (80.0-100.0) fL MCH 30.1 (25.0-35.0) pg MCHC 32.2 (31.0-37.0) g/dL RDW 13.2 (11.5-15.5) % Plt Count 195 (150-450) k/uL Neutrophils % 55 % Lymphocytes % 22 % Monocytes % 13 % Eosinophils % 5 % Basophils % 1 % Neutrophils # 3.5 (1.3-7.7) k/uL Lymphocytes # 1.4 (1.0-4.8) k/uL Monocytes # 0.8 (0-1.0) k/uL Eosinophils # 0.3 (0-0.7) k/uL Basophils # 0.0 (0-0.2) k/uL PT (9.0-12.0) sec INR (<1.2) APTT (22.0-30.0) sec Sodium 145 (137-145) mmol/L Potassium 3.6 (3.5-5.1) mmol/L Chloride 106 (98-107) mmol/L Carbon Dioxide 29 (22-30) mmol/L Anion Gap 10 mmol/L BUN 18 H (7-17) mg/dL Creatinine 0.70 (0.52-1.04) mg/dL Est GFR (MDRD) Af Amer >60 (>60 ml/min/1.73 sqM) Est GFR (MDRD) Non-Af >60 (>60 ml/min/1.73 sqM) Glucose 122 H (74-99) mg/dL Calcium 9.7 (8.4-10.2) mg/dL Magnesium 2.0 (1.6-2.3) mg/dL Total Bilirubin 0.3 (0.2-1.3) mg/dL AST 30 (14-36) U/L ALT 17 (9-52) U/L Alkaline Phosphatase 71 (38-126) U/L Total Creatine Kinase 43 (30-135) U/L CK-MB (CK-2) 0.5 (0.0-2.4) ng/mL CK-MB (CK-2) Rel Index 1.2 Troponin I <0.012 (0.000-0.034) ng/mL Total Protein 7.2 (6.3-8.2) g/dL Albumin 4.1 (3.5-5.0) g/dL Amylase 110 (30-110) U/L Lipase 160 (23-300) U/L 04/27/17 Range/Units 01:45 WBC (3.8-10.6) k/uL RBC (3.80-5.40) m/uL Hgb (11.4-16.0) gm/dL Hct (34.0-46.0) % MCV (80.0-100.0) fL MCH (25.0-35.0) pg MCHC (31.0-37.0) g/dL RDW (11.5-15.5) % Plt Count (150-450) k/uL Neutrophils % % Lymphocytes % % Monocytes % % Eosinophils % % Basophils % % Neutrophils # (1.3-7.7) k/uL Lymphocytes # (1.0-4.8) k/uL Monocytes # (0-1.0) k/uL Eosinophils # (0-0.7) k/uL Basophils # (0-0.2) k/uL PT 10.4 (9.0-12.0) sec INR 1.1 (<1.2) APTT 23.5 (22.0-30.0) sec Sodium (137-145) mmol/L Potassium (3.5-5.1) mmol/L Chloride (98-107) mmol/L Carbon Dioxide (22-30) mmol/L Anion Gap mmol/L BUN (7-17) mg/dL Creatinine (0.52-1.04) mg/dL Est GFR (MDRD) Af Amer (>60 ml/min/1.73 sqM) Est GFR (MDRD) Non-Af (>60 ml/min/1.73 sqM) Glucose (74-99) mg/dL Calcium (8.4-10.2) mg/dL Magnesium (1.6-2.3) mg/dL Total Bilirubin (0.2-1.3) mg/dL AST (14-36) U/L ALT (9-52) U/L Alkaline Phosphatase (38-126) U/L Total Creatine Kinase (30-135) U/L CK-MB (CK-2) (0.0-2.4) ng/mL CK-MB (CK-2) Rel Index Troponin I (0.000-0.034) ng/mL Total Protein (6.3-8.2) g/dL Albumin (3.5-5.0) g/dL Amylase (30-110) U/L Lipase (23-300) U/L Disposition Clinical Impression: Chest pain, Tachycardia Disposition: HOME SELF-CARE Condition: Good Referrals: Robin Fonseca DO [Primary Care Provider] - 1-2 days
[2017-04-27 02:07] LABS: Basophils % (A) 1 %; Eosinophils # (A) 0.3 k/uL (0-0.7); Eosinophils % (A) 5 %; HCT 44.4 % (34.0-46.0); HGB 14.3 gm/dL (11.4-16.0); Lymphocytes # (A) 1.4 k/uL (1.0-4.8); Lymphocytes % (A) 22 %; MCH 30.1 pg (25.0-35.0); MCHC 32.2 g/dL (31.0-37.0); MCV 93.2 fL (80.0-100.0); Mean Platelet Volume 8.6; Monocytes # (A) 0.8 k/uL (0-1.0); Monocytes % (A) 13 %; Neutrophils # (A) 3.5 k/uL (1.3-7.7); Neutrophils % (A) 55 %; Platelet Count 195 k/uL (150-450); RBC 4.77 m/uL (3.80-5.40); RDW 13.2 % (11.5-15.5); WBC 6.3 k/uL (3.8-10.6)
[2017-04-27 02:09] LABS: INR 1.1 (<1.2); Partial Thromboplastin Time 23.5 sec (22.0-30.0); Prothrombin Time 10.4 sec (9.0-12.0)
--- NOTE | 2017-04-27 02:18 | XR ---
EXAMINATION TYPE: XR chest 1V portable DATE OF EXAM: 04/27/2017 COMPARISON: NONE HISTORY: Dysrhythmia TECHNIQUE: Single frontal view of the chest is obtained. FINDINGS: There is no heart failure nor confluent pneumonic infiltrate. Costophrenic angles are avelina r. Thoracic aorta is atheromatous. There are chest leads. IMPRESSION: No active cardiopulmonary disease. Atheromatous aorta.
[2017-04-27 02:20] LABS: ALT 17 U/L (9-52); AST 30 U/L (14-36); Albumin 4.1 g/dL (3.5-5.0); Alkaline Phosphatase 71 U/L (38-126); Amylase 110 U/L (30-110); Anion Gap 10 mmol/L; Blood Urea Nitrogen 18 mg/dL (7-17); Calcium 9.7 mg/dL (8.4-10.2); Carbon Dioxide 29 mmol/L (22-30); Chloride 106 mmol/L (98-107); Creatine Kinase 43 U/L (30-135); Glucose 122 mg/dL (74-99); Lipase 160 U/L (23-300); Sodium 145 mmol/L (137-145); Total Bilirubin 0.3 mg/dL (0.2-1.3); Total Protein 7.2 g/dL (6.3-8.2)
[2017-04-27 02:23] LABS: Potassium 3.6 mmol/L (3.5-5.1)
[2017-04-27 02:32] LABS: Creatine Kinase MB 0.5 ng/mL (0.0-2.4); Troponin I <0.012 ng/mL (0.000-0.034)
[2017-04-27] MEDS ORDERED: NITROGLYCERIN SL TABS 0.4 MG TAB SUBLINGUAL PRN (03:40)
[2017-04-27 03:46] VITALS: RESP 16
[2017-04-27 03:47] LABS: Appearance,Urine Clear (Clear); Bacteria,Urine Occasional /hpf; Bilirubin,Urine Negative (Negative); Blood,Urine Negative (Negative); Color,Urine Yellow; Glucose,Urine (UA) Negative (Negative); Ketones,Urine Negative (Negative); Leukocyte Esterase,Urine Moderate (Negative); Mucus,Urine Rare /hpf; Nitrite,Urine Negative (Negative); PH, Urine 6.5 (5.0-8.0); Protein,Urine Negative (Negative); RBC,Urine 2 /hpf (0-5); Specific Gravity,Urine 1.011 (1.001-1.035); Squamous Epithelial Cell,Urine 1 /hpf (0-4); Urobilinogen,Urine <2.0 mg/dL (<2.0); WBC,Urine 8 /hpf (0-5)
[2017-04-27 04:49] VITALS: BMI 24.3
--- NOTE | 2017-04-27 08:32 | US ---
EXAMINATION TYPE: US abdomen limited DATE OF EXAM: 04/27/2017 COMPARISON: CT 12/26/2016, US 09/23/2016 CLINICAL HISTORY: 77-year-old female Pain, attention RUQ. TECHNIQUE: Multiple sonographic images of the right upper quadrant are obtained. FINDINGS: Liver Length: 12.9 cm Gallbladder Wall: 0.2 cm CBD: 0.4 cm Right Kidney: 10.2 x 4.1 x 4.0 cm Pancreas: Tail obscured by overlying bowel gas, visualized portions show no abnormality Liver: Normal size and homogeneous appearance. No focal lesion seen. Gallbladder: wnl Evidence for sonographic Schmitz's sign: Yes CBD: wnl as visualized, distal portion obscured by bowel gas Right Kidney: Difficult/limited visualization due to overlying bowel gas. No hydronephrosis. Unable to visualize cystic area seen on CT with certainty. IMPRESSION: Some technical limitations due to bowel gas shadowing. No specific abnormality seen. However, note th at the commercial real estate associate indicates a positive sonographic Schmitz sign. This may reflect referred pain. If f urther imaging evaluation of the gallbladder is desired, consider HIDA scan with ejection fraction.
[2017-04-27] MEDS ORDERED: APIXABAN 5 MG TAB PO SCH (09:00)
[2017-04-27] MEDS ORDERED: CHOLECALCIFEROL 1,000 UNIT TAB PO SCH (09:00)
[2017-04-27] MEDS ORDERED: MULTIVITAMINS, THERA 1 EACH TAB PO SCH (09:00)
[2017-04-27] MEDS ORDERED: METOPROLOL TARTRATE 50 MG TAB PO SCH (09:00)
[2017-04-27 09:03] LABS: Creatine Kinase 37 U/L (30-135)
[2017-04-27 09:15] LABS: Creatine Kinase MB 0.3 ng/mL (0.0-2.4); Troponin I <0.012 ng/mL (0.000-0.034)
[2017-04-27 10:34] LABS: T4, Free (Free Thyroxine) 1.52 ng/dL (0.78-2.19)
[2017-04-27 11:47] VITALS: BP 119/65; PULSE 77; TEMP 98
--- NOTE | 2017-04-27 13:08 | P.CRDCN ---
History of Present Illness Consult date: 04/27/17 Consult reason: atrial fibrillation History of present illness: Mrs. Buck is a pleasant 77-year-old female past medical history significant for paroxysmal atrial fibrillation on fpc anticoagulation with Eliquis, hiatal hernia and gastroesophageal reflux disease. She follows with Dr. Potter in the office. We have been asked to see her in consultation for complaints of palpitations. She states last night around 2200 she woke up with burning in the epigastric region, which she sufferes from regularly. She got up to eat some crackers to subside the pain and then she started feeling her heart rate skipping around and beating rapidly. She denies associated sob, chest pain, diaphoresis, nausea or vomiting. The pain in her epigastric region has persisted and is still somewhat there at this time. The pain radiates to the right upper quadrant and is worse with deep palpiation. She denies ever having had actual pain in her chest, arm, back or neck. EKG on arrival reveals sinus mechanism with non-specific T-wave changes inferiorly with heart rate 106. Chest xray is negative for an acute cardiopulmonary process. Laboratory data reviewed, hemoglobin 14.3, platelets 195, potassium 3.6, magnesium 2.0, cardiac enzymes negative 2. Current cardiac medications include Eliquis 5 mg twice a day and Lopressor 25 mg twice a day. Most recent Cardiolite stress test from October 2016 reveals no evidence of reversible cardiac ischemia. Most recent echocardiogram 09/2016 reveals preserved LV systolic function with EF 55%, mild MR, mild TR and mild aortic valve sclerosis. Review of Systems CONSTITUTIONAL: Denies fever. Denies chills. EYES: Denies blurred vision. Denies vision changes. Denies eye pain. EARS, NOSE, MOUTH & THROAT: Denies headache. Denies sore throat. Denies ear pain. CARDIOVASCULAR: Denies chest pain. Denies shortness of breath. Denies orthopnea. Denies PND. Denies palpitations. RESPIRATORY: Denies cough. GASTROINTESTINAL: Complains of epigastric and right upper quadrant abdominal pain. Denies diarrhea. Denies constipation. Denies nausea. Denies vomiting. MUSCULOSKELETAL: Denies myalgias. INTEGUMENTARY: Denies pruitis. Denies rash. NEUROLOGIC: Denies numbness. Denies tingling. Denies weakness. PSYCHIATRIC: Denies anxiety. Denies depression. ENDOCRINE: Denies fatigue. Denies weight change. Denies polydipsia. Denies polyurina. GENITOURINARY: Denies burning, hematuria or urgency with micturation. HEMATOLOGIC: Denies history of anemia. Denies bleeding. Past Medical History Past Medical History: Atrial Fibrillation, GERD/Reflux, Osteoarthritis (OA) Additional Past Medical History / Comment(s): Seasonal allergies, Hiatal Hernia , episode of tachycardia., neck pain in certain positions.boipsy on right foot and under left breast History of Any Multi-Drug Resistant Organisms: None Reported Past Surgical History: Hysterectomy Additional Past Surgical History / Comment(s): Colonoscopy, cataract removed for both eyes Past Anesthesia/Blood Transfusion Reactions: Family History of Problems w/ Anesthesia Additional Past Anesthesia/Blood Transfusion Reaction / Comment(s): States the top of her head was numb after cataract surgery. Pt. states her mother's heart stopped during gallbladder surgery. Past Psychological History: No Psychological Hx Reported Smoking Status: Former smoker Past Alcohol Use History: None Reported Past Drug Use History: None Reported - Past Family History Mother Family Medical History: Coronary Artery Disease (CAD) Medications and Allergies Home Medications Medication Instructions Recorded Confirmed Type Multivit with Calcium,Iron,Min 1 tab PO DAILY 11/08/15 04/27/17 History [Women's Daily Multivitamin] Cholecalciferol [Vitamin D3] 1,000 unit PO DAILY 10/01/16 04/27/17 History Apixaban [Eliquis] 5 mg PO BID #60 tab 10/02/16 04/27/17 Rx Metoprolol Tartrate [Lopressor] 25 mg PO BID 04/27/17 04/27/17 History Polyethylene Glycol 3350 [Miralax] 17 gm PO DAILY 04/27/17 04/27/17 History Vit C/E/Zn/Coppr/Lutein/Zeaxan 1 cap PO FR 04/27/17 04/27/17 History [Preservision Areds 2 Softgel] Allergies Allergy/AdvReac Type Severity Reaction Status Date / Time levofloxacin [From Levaquin] Allergy Rash/Hives Verified 04/27/17 07:45 Additives in inhalers Allergy Rapid Uncoded 04/27/17 07:45 Heart Rate Physical Exam Vitals: Vital Signs Temp Pulse Pulse Resp BP BP Pulse Ox 04/27/17 08:00 98.2 F 102 H 16 142/61 98 04/27/17 04:34 97.7 F 97 16 157/72 97 04/27/17 04:00 16 04/27/17 03:38 90 16 134/60 100 04/27/17 02:42 87 18 115/55 98 04/27/17 02:32 96 18 118/58 98 04/27/17 01:08 98.3 F 118 H 20 167/76 99 Intake and Output 04/26/17 04/27/17 04/27/17 22:59 06:59 14:59 Other: Voiding Method Toilet # Voids 1 Weight 66.3 kg Blood pressure 142/61 heart rate 102 afebrile GENERAL: This is a 77-year-old female in no apparent distress at the time of my examination. HEENT: Head is atraumatic, normocephalic. Pupils are equal, round. Sclerae anicteric. Conjunctivae are clear. Mucous membranes of the mouth are moist. Neck is supple. There is no jugular venous distention. No carotid bruit is heard. LUNGS: Clear to auscultation no wheezes, rales or rhonchi. No chest wall tenderness is noted on palpation or with deep breathing. HEART: Regular rate and rhythm without murmurs, rubs or gallops. S1 and S2 heard. ABDOMEN: Soft, nontender. Bowel sounds are heard. No organomegaly noted. EXTREMITIES: No evidence of peripheral edema and no calf tenderness noted. VASCULAR: Radial and dorsalis pedis pulses palpated, no evidence of clubbing. NEUROLOGIC: Patient is awake, alert and oriented x3. Results 04/27/17 01:45 04/27/17 01:45 Cardiac Enzymes 04/27/17 04/27/17 Range/Units 01:45 01:45 AST 30 (14-36) U/L CK-MB (CK-2) 0.5 (0.0-2.4) ng/mL Troponin I <0.012 (0.000-0.034) ng/mL Coagulation 04/27/17 Range/Units 01:45 PT 10.4 (9.0-12.0) sec APTT 23.5 (22.0-30.0) sec CBC 04/27/17 Range/Units 01:45 WBC 6.3 (3.8-10.6) k/uL RBC 4.77 (3.80-5.40) m/uL Hgb 14.3 (11.4-16.0) gm/dL Hct 44.4 (34.0-46.0) % Plt Count 195 (150-450) k/uL Comprehensive Metabolic Panel 04/27/17 Range/Units 01:45 Sodium 145 (137-145) mmol/L Potassium 3.6 (3.5-5.1) mmol/L Chloride 106 (98-107) mmol/L Carbon Dioxide 29 (22-30) mmol/L BUN 18 H (7-17) mg/dL Creatinine 0.70 (0.52-1.04) mg/dL Glucose 122 H (74-99) mg/dL Calcium 9.7 (8.4-10.2) mg/dL AST 30 (14-36) U/L ALT 17 (9-52) U/L Alkaline Phosphatase 71 (38-126) U/L Total Protein 7.2 (6.3-8.2) g/dL Albumin 4.1 (3.5-5.0) g/dL Current Medications Generic Name Dose Route Start Last Admin Trade Name Freq PRN Reason Stop Dose Admin Apixaban 5 mg 04/27/17 09:00 Eliquis PO BID [facility] Cholecalciferol 1,000 unit 04/27/17 09:00 Vitamin D3 PO DAILY [facility] Metoprolol Tartrate 50 mg 04/27/17 09:00 Lopressor PO BID [facility] Multivitamins 1 each 04/27/17 09:00 Theragran PO DAILY [facility] Nitroglycerin 0.4 mg 04/27/17 03:40 Nitrostat SUBLINGUAL Q5M PRN Chest Pain Intake and Output 04/26/17 04/27/17 04/27/17 22:59 06:59 14:59 Other: Voiding Method Toilet # Voids 1 Weight 66.3 kg 04/27/17 01:45 04/27/17 01:45 Assessment and Plan Assessment: ASSESSMENT 1. Palpitations 2. History of paroxysmal atrial fibrillation on long-term anticoagulation 3. Epigastric burning with radiation to the right upper quadrant 4. Gastroesophageal reflux disease 5. Hiatal hernia PLAN Check TSH. Telemetry tracings have been unremarkable for any episodes of atrial fibrillation as far. Set up for a 30 day event monitor to be worn upon discharge. Follow-up with Dr. Potter once completed. Consider possible GI evaluation for ongoing persistent symptoms of gastroesophageal reflux disease. Thank you kindly for this consultation. Nurse Practitioner note has been reviewed, I agree with a documented findings and plan of care. Patient was seen and examined.
[2017-04-27] MEDS ORDERED: PANTOPRAZOLE 40 MG/10 ML VIAL IVP SCH (13:30)
[2017-04-27 15:12] LABS: Creatine Kinase 35 U/L (30-135)
[2017-04-27 15:24] LABS: Creatine Kinase MB 0.3 ng/mL (0.0-2.4); Troponin I <0.012 ng/mL (0.000-0.034)
--- NOTE | 2017-04-27 17:11 | HP ---
HISTORY AND PHYSICAL This is a combination history and physical and discharge summary. HISTORY AND PHYSICAL/DISCHARGE SUMMARY: CHIEF COMPLAINTS: Epigastric pain and palpitations. HISTORY OF PRESENT ILLNESS: This 77-year-old woman with a past medical history of paroxysmal atrial ablation , DJD, history of GERD, being followed by Cardiology and Dr. Fonseca in the outpatient setting was having epigastric palpitations and as well as epigastric discomfort. Patient came to [facility] and was admitted for further evaluation and treatment. The telemetry did not show any acute arrhythmia. Cardiology evaluated the patient and recommended outpatient followup with event monitor. There is no history of fever, rigors or chills. No history of headache, loss of consciousness or seizures. The patient had evidence of mild UTI. PAST MEDICAL HISTORY: Atrial fibrillation, GERD, DJD, seasonal allergies. MEDICATIONS PRIOR TO ADMISSION: Include home medications: 1. Vitamin C. 3. MiraLAX 17 g daily. 4. Multivitamins one daily. 5. Lopressor 25 mg p.o. b.i.d. 6. Vitamin D 3000 daily. 7. Eliquis 5 mg p.o. daily. ALLERGIES: ARE LEVAQUIN AND ADDITIVES. FAMILY HISTORY: History of coronary artery disease in the family. SOCIAL HISTORY: Previous history of smoking. No history of current smoking. No alcohol intake. REVIEW OF SYSTEMS: ENT: No diminished hearing or vision. CARDIOVASCULAR: As mentioned earlier. Respirations: As mentioned earlier. GI as mentioned earlier. no dysuria or retention. Nervous System: No numbness or weakness. ALLERGY/IMMUNOLOGY: No asthma or hayfever. Musculoskeletal: As mentioned earlier. Hematology/Oncology: No history of anemia. Endocrine: No history of hypothyroidism or diabetes mellitus. Constitutional: As mentioned earlier. Dermatology: Negative. Rheumatology: Negative. Psychiatric: As mentioned earlier. PHYSICAL EXAMINATION: The patient is alert and oriented times three. Pulse 77, blood pressure 119/65, respirations 16, temperature 98 degrees, pulse ox 94% on room air. HEENT: Conjunctivae normal. Oral mucosa moist. Neck is no jugular venous distention. No carotid bruit. No lymph node enlargement. Cardiovascular system: S1, S2 muffled. No S3, no S4. Respiratory: Breath sounds diminished in the bases. No rhonchi. No crackles. ABDOMEN: Soft, nontender. No mass palpable. Some mild diffuse discomfort in the epigastrium. No guarding. No rigidity. No mass palpable. Nervous system: Higher functions as mentioned earlier. Moves all four limbs. No focal deficits. Lymphatics: No lymph nodes palpable in the neck, axillae or groin. Skin: No ulcer, rash or bleeding. LABS: CBC within normal limits and glucose 122. ASSESSMENT: 1. Epigastric pain, possible gastroesophageal reflux disease. 2. Palpitations. No evidence of arrhythmia. 3. Normal abdominal ultrasound. 4. Paroxysmal atrial fibrillation. 5. Gastroesophageal reflux disease. 6. History of degenerative joint disease. 7. History of hiatal hernia. RECOMMENDATIONS AND DISCUSSION: In this 77-year-old woman who presented with multiple complex medical issues, we will monitor the patient closely, continue the current medications, symptomatic management and treatment. Otherwise, pump oiler saw the patient and recommend the patient be discharged and the patient is being discharged in stable condition. DISCHARGE ADVICE AND MEDICATIONS: 1. Diet is cardiac, soft, bland. 2. Activity limited until follow up. 3. Follow up with Dr. Fonseca in 2-3 days. 4. Follow up with pump oiler as advised. 5. Follow up with Gastroenterology for further evaluation and treatment. Medications to be as follows: 1. Eliquis 5 mg p.o. b.i.d. 2. Vitamin D3 1000 daily. 3. Lopressor 25 mg p.o. b.i.d. 4. Multivitamin 1 p.o. daily. 5. Protonix 40 mg p.o. b.i.d. 6. MiraLAX 17 g daily. 7. Bactrim DS 1 p.o. b.i.d. 8. Vitamin C, E-zinc 1 p.o. daily. Once again, the patient is being discharged in stable condition with guarded prognosis. MMODL / IJN: [id number] / MTDD
[2017-04-27] MEDS ORDERED: METOPROLOL TARTRATE 25 MG TAB PO SCH (21:00)
[2017-04-28] MEDS ORDERED: PANTOPRAZOLE 40 MG TABLET PO SCH (07:30)
[2017-04-28] MEDS ORDERED: ASPIRIN 325 MG TAB PO SCH (09:00)
--- NOTE | 2017-06-08 11:31 | EM ---
EVENT MONITOR This is an event monitor for palpitations. This is a 30-day event monitor for palpitations. No ECG strips available from this 30- day event monitor. Apparently, the patient took the monitor off and did not wear it. I spoke to the stress lab staff and was informed that the patient did not wear this monitor at all and therefore no strips were available. No monitor strips are available for evaluation. MMODL / IJN: [id number] /
== END 2017-04-27 16:45 | disposition home or self-care (01) ==
LOC: EC 01:04 → 3OBS 03:43
PROVIDERS: ADMIT Hospitalist; ATTEND Hospitalist
DX: R10.13 Epigastric pain (principal); R10.11 Right upper quadrant pain; R00.2 Palpitations; I48.0 Paroxysmal atrial fibrillation; K21.9 Gastro-esophageal reflux disease without esophagitis; M19.90 Unspecified osteoarthritis, unspecified site; K44.9 Diaphragmatic hernia without obstruction or gangrene; N39.0 Urinary tract infection, site not specified; Z79.01 Long term (current) use of anticoagulants; Z79.899 Other long term (current) drug therapy; Z87.891 Personal history of nicotine dependence; Z82.49 Family history of ischemic heart disease and other diseases of the circulatory system; Z88.8 Allergy status to other drugs, medicaments and biological substances; Z88.1 Allergy status to other antibiotic agents; R00.0 Tachycardia, unspecified; R07.9 Chest pain, unspecified
CPT/HCPCS: 99285; 96374; 36415; 93005; 93270; 93271; 84439; 80053; 84443; 82150; 82550; 82553; 83690; 83735; 84484; 85025; 85610; 85730; 81001; 71045; 76705; G0378; C9113

== ENCOUNTER → 2017-11-23 | Outpatient (CLI) | payer MEDICARE ==
[2017-11-23 11:45] LABS: Calcium 9.4 mg/dL (8.4-10.2); Potassium 4.6 mmol/L (3.5-5.1)
[2017-11-23 11:46] LABS: Appearance,Urine Clear (Clear); Bilirubin,Urine Negative (Negative); Blood,Urine Negative (Negative); Color,Urine Light Yellow; Glucose,Urine (UA) Negative (Negative); Ketones,Urine Negative (Negative); Leukocyte Esterase,Urine Trace (Negative); Nitrite,Urine Negative (Negative); PH, Urine 6.5 (5.0-8.0); Protein,Urine Negative (Negative); RBC,Urine <1 /hpf (0-5); Specific Gravity,Urine 1.004 (1.001-1.035); Squamous Epithelial Cell,Urine <1 /hpf (0-4); Urobilinogen,Urine <2.0 mg/dL (<2.0); WBC,Urine 1 /hpf (0-5)
[2017-11-23 12:00] LABS: T4, Free (Free Thyroxine) 1.1 ng/dL (0.78-2.19)
[2017-11-23 12:05] LABS: Basophils % (A) 1 %; Eosinophils # (A) 0.1 k/uL (0-0.7); Eosinophils % (A) 2 %; HCT 44.7 % (34.0-46.0); HGB 13.8 gm/dL (11.4-16.0); Lymphocytes % (A) 19 %; MCHC 30.8 g/dL (31.0-37.0); MCV 97.4 fL (80.0-100.0); Monocytes # (A) 0.5 k/uL (0-1.0); Monocytes % (A) 9 %; Neutrophils # (A) 3.3 k/uL (1.3-7.7); Neutrophils % (A) 66 %; Platelet Count 216 k/uL (150-450); RBC 4.58 m/uL (3.80-5.40)
== END ==
LOC: LABWHC1 10:40
PROVIDERS: ATTEND Family Medicine
DX: I48.0 Paroxysmal atrial fibrillation (principal)
CPT/HCPCS: 36415; 80048; 80061; 81001; 84439; 84443; 84450; 84460; 85025

== ENCOUNTER 2018-11-07 08:25 | Emergency (ER) | payer MEDICARE ==
[2018-11-07 08:32] VITALS: RESP 18; TEMP 97.9
[2018-11-07 09:26] LABS: Amorphous Sediment,Urine Rare /hpf; Appearance,Urine Cloudy (Clear); Bacteria,Urine Occasional /hpf; Bilirubin,Urine 2+ (Negative); Blood,Urine Small (Negative); Calcium Oxalate Crystals,Urine Occasional /hpf; Color,Urine Dark Brown; Glucose,Urine (UA) Negative (Negative); Hyaline Casts,Urine 1 /lpf (0-2); Ketones,Urine Negative (Negative); Leukocyte Esterase,Urine Trace (Negative); Mucus,Urine Occasional /hpf; Nitrite,Urine Negative (Negative); Protein,Urine Trace (Negative); RBC,Urine 17 /hpf (0-5); Specific Gravity,Urine 1.022 (1.001-1.035); Squamous Epithelial Cell,Urine 1 /hpf (0-4); Urobilinogen,Urine >12.0 mg/dL (<2.0); WBC,Urine 14 /hpf (0-5)
--- NOTE | 2018-11-07 09:27 | ED ---
General Adult HPI - General Chief complaint: Allergic Reaction Stated complaint: med reaction Time Seen by Provider: 11/07/18 08:36 Source: patient, RN notes reviewed Mode of arrival: ambulatory Limitations: no limitations - History of Present Illness Initial comments: 78-year-old female presents to the emergency department for a chief complaint of med reaction. States she needs a medication change. Patient states that she was started on cefuroxime for urinary tract infection 5 days ago. States she has never had this medication before. States that she had itching began on her bilateral plantar feet one day after taking this and it has progressively worsened. States this is worse at night. Patient states she does not want any Benadryl and now she did not take her medication today because of this. States she needs a new antibiotic. States her suprapubic pressure is much better but she was supposed to taking medicine for 10 days. States she had a culture done at her doctors and it was E. coli.Patient has no other complaints at this time including shortness of breath, chest pain, abdominal pain, nausea or vomiting, headache, or visual changes. - Related Data Home Medications Medication Instructions Recorded Confirmed Multivit with Calcium,Iron,Min 1 tab PO DAILY 11/08/15 04/27/17 [Women's Daily Multivitamin] Cholecalciferol [Vitamin D3 (25 1,000 unit PO DAILY 10/01/16 04/27/17 Mcg = 1000 Iu)] Metoprolol Tartrate [Lopressor] 25 mg PO BID 04/27/17 04/27/17 Polyethylene Glycol 3350 [Miralax] 17 gm PO DAILY 04/27/17 04/27/17 Vit C/E/Zn/Coppr/Lutein/Zeaxan 1 cap PO FR 04/27/17 04/27/17 [Preservision Areds 2 Softgel] Previous Rx's Medication Instructions Recorded Apixaban [Eliquis] 5 mg PO BID #60 tab 10/02/16 Pantoprazole Sodium [Protonix] 40 mg PO BID #60 tablet. 04/27/17 Sulfamethox-Tmp 800-160Mg [Bactrim 1 tab PO Q12HR #6 tab 04/27/17 DS 800-160 mg] Allergies Allergy/AdvReac Type Severity Reaction Status Date / Time levofloxacin [From Levaquin] Allergy Rash/Hives Verified 04/27/17 07:45 Additives in inhalers Allergy Rapid Uncoded 04/27/17 07:45 Heart Rate Review of Systems ROS Statement: Those systems with pertinent positive or pertinent negative responses have been documented in the HPI. ROS Other: All systems not noted in ROS Statement are negative. Past Medical History Past Medical History: Atrial Fibrillation, GERD/Reflux, Osteoarthritis (OA) Additional Past Medical History / Comment(s): Seasonal allergies, Hiatal Hernia, episode of tachycardia., neck pain in certain positions.boipsy on right foot and under left breast History of Any Multi-Drug Resistant Organisms: None Reported Past Surgical History: Hysterectomy Additional Past Surgical History / Comment(s): Colonoscopy, cataract removed for both eyes Past Anesthesia/Blood Transfusion Reactions: Family History of Problems w/ Anesthesia Additional Past Anesthesia/Blood Transfusion Reaction / Comment(s): States the top of her head was numb after cataract surgery. Pt. states her mother's heart stopped during gallbladder surgery. Past Psychological History: No Psychological Hx Reported Smoking Status: Former smoker Past Alcohol Use History: None Reported Past Drug Use History: None Reported - Past Family History Mother Family Medical History: Coronary Artery Disease (CAD) General Exam Limitations: no limitations General appearance: alert, in no apparent distress Head exam: Present: atraumatic, normocephalic, normal inspection Eye exam: Present: normal appearance, PERRL, EOMI. Absent: scleral icterus, conjunctival injection, periorbital swelling ENT exam: Present: normal exam, mucous membranes moist Neck exam: Present: normal inspection, full ROM. Absent: tenderness, meningismus, lymphadenopathy Respiratory exam: Present: normal lung sounds bilaterally. Absent: respiratory distress, wheezes, rales, rhonchi, stridor Cardiovascular Exam: Present: regular rate, normal rhythm, normal heart sounds. Absent: systolic murmur, diastolic murmur, rubs, gallop, clicks GI/Abdominal exam: Present: soft, normal bowel sounds. Absent: distended, tenderness, guarding, rebound, rigid Back exam: Absent: CVA tenderness (R), CVA tenderness (L) Neurological exam: Present: alert Psychiatric exam: Present: normal affect, normal mood Skin exam: Present: warm, dry, intact, normal color. Absent: rash Course Vital Signs 11/07/18 08:28 Temperature 97.9 F Pulse Rate 98 Respiratory 18 Rate Blood Pressure 144/79 O2 Sat by Pulse 98 Oximetry Medical Decision Making - Medical Decision Making 78-year-old female presents for medication change. Patient is having ALLERGIC symptoms to cefuroxime. Patient has been on antibiotics for 5 days for urinary tract infection. On urinalysis patient has 14 white blood cells with occasional bacteria. This will be cultured. However patient will be put on Bactrim as she is ALLERGIC to fluoroquinolones as well as possibly penicillins. She will follow up with primary care. She'll return should any worsening symptoms. - Lab Data Lab Results 11/07/18 Range/Units 09:12 Urine Color Dark Brown Urine Appearance Cloudy H (Clear) Urine pH 6.0 (5.0-8.0) Ur Specific [place] 1.022 (1.001-1.035) Urine Protein Trace H (Negative) Urine Glucose (UA) Negative (Negative) Urine Ketones Negative (Negative) Urine Blood Small H (Negative) Urine Nitrite Negative (Negative) Urine Bilirubin 2+ H (Negative) Urine Urobilinogen >12.0 (<2.0) mg/dL Ur Leukocyte Esterase Trace H (Negative) Urine RBC 17 H (0-5) /hpf Urine WBC 14 H (0-5) /hpf Ur Squamous Epith Cells 1 (0-4) /hpf Calcium Oxalate Crystal Occasional H (None) /hpf Amorphous Sediment Rare H (None) /hpf Urine Bacteria Occasional H (None) /hpf Hyaline Casts 1 (0-2) /lpf Urine Mucus Occasional H (None) /hpf Disposition Clinical Impression: Urinary tract infection Disposition: HOME SELF-CARE Condition: Good Instructions (If sedation given, give patient instructions): Urinary Tract Infection in Women (ED) Additional Instructions: Please take in a bradycardic as directed. Please follow-up with primary care in 1-2 days. Follow up on culture results as well. Returned to the ED if you have any worsening symptoms. Is patient prescribed a controlled substance at d/c from ED?: No Referrals: Robin Fonseca DO [Primary Care Provider] - 1-2 days Time of Disposition: 09:46
[2018-11-07 10:19] VITALS: BP 139/70; PULSE 94
== END 2018-11-07 10:06 | disposition home or self-care (01) ==
LOC: EC 08:25
DX: N39.0 Urinary tract infection, site not specified (principal); T36.1X5A Adverse effect of cephalosporins and other beta-lactam antibiotics, initial encounter; J30.2 Other seasonal allergic rhinitis; Z87.891 Personal history of nicotine dependence; Z79.899 Other long term (current) drug therapy; Z88.1 Allergy status to other antibiotic agents; Z88.8 Allergy status to other drugs, medicaments and biological substances; Z98.41 Cataract extraction status, right eye; Z98.42 Cataract extraction status, left eye
CPT/HCPCS: 81001; 99283

== ENCOUNTER 2018-11-15 09:33 | Inpatient (IN) | payer MEDICARE ==
--- NOTE | 2018-11-15 09:59 | ED ---
General Adult HPI - General Chief complaint: Recheck/Abnormal Lab/Rx Stated complaint: Jaundice Time Seen by Provider: 11/15/18 09:36 Source: patient, RN notes reviewed Mode of arrival: ambulatory Limitations: no limitations - History of Present Illness Initial comments: Patient is a pleasant 78-year-old female presenting to the emergency Department with yellowish discoloration of her skin. Onset of symptoms was yesterday. No history of similar symptoms previously. 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 Patient was in the emergency department a week or so ago with urinary problems and was diagnosed with urinary tract infection and placed on antibiotics. Patient did follow-up with her doctor with this secondary to itching. Patient denies any new abdominal discomfort. Patient states her stools are somewhat white discolored. - Related Data Home Medications Medication Instructions Recorded Confirmed Multivit with Calcium,Iron,Min 1 tab PO DAILY 11/08/15 11/15/18 [Women's Daily Multivitamin] Cholecalciferol [Vitamin D3 (25 3,000 unit PO BID 10/01/16 11/15/18 Mcg = 1000 Iu)] Metoprolol Tartrate [Lopressor] 25 mg PO BID 04/27/17 11/15/18 Ondansetron [Zofran] 4 mg PO Q8H PRN 11/15/18 11/15/18 Pantoprazole Sodium [Protonix] 40 mg PO DAILY 11/15/18 11/15/18 Previous Rx's Medication Instructions Recorded Apixaban [Eliquis] 5 mg PO BID #60 tab 10/02/16 Sulfamethox-Tmp 800-160Mg [Bactrim 1 tab PO Q12HR #14 tab 11/07/18 DS 800-160 mg] Allergies Allergy/AdvReac Type Severity Reaction Status Date / Time cefuroxime Allergy Itching Verified 11/15/18 10:14 levofloxacin [From Levaquin] Allergy Rash/Hives Verified 11/15/18 10:14 Additives in inhalers Allergy Rapid Uncoded 11/15/18 09:38 Heart Rate Review of Systems ROS Statement: Those systems with pertinent positive or pertinent negative responses have been documented in the HPI. ROS Other: All systems not noted in ROS Statement are negative. Constitutional: Denies: fever Eyes: Denies: eye pain ENT: Denies: ear pain Respiratory: Denies: cough Cardiovascular: Denies: chest pain Endocrine: Denies: fatigue Gastrointestinal: Denies: abdominal pain, nausea, vomiting Genitourinary: Denies: dysuria Musculoskeletal: Denies: back pain Skin: Reports: as per HPI Neurological: Denies: weakness Past Medical History Past Medical History: Atrial Fibrillation, GERD/Reflux, Osteoarthritis (OA) Additional Past Medical History / Comment(s): Seasonal allergies, Hiatal Hernia, tachycardia, positions.boipsy on right foot and under left breast History of Any Multi-Drug Resistant Organisms: None Reported Past Surgical History: Hysterectomy Additional Past Surgical History / Comment(s): Colonoscopy, cataract removed for both eyes Past Anesthesia/Blood Transfusion Reactions: Family History of Problems w/ Anesthesia Additional Past Anesthesia/Blood Transfusion Reaction / Comment(s): States the top of her head was numb after cataract surgery. Pt. states her mother's heart stopped during gallbladder surgery. Past Psychological History: No Psychological Hx Reported Smoking Status: Former smoker Past Alcohol Use History: None Reported Past Drug Use History: None Reported - Past Family History Mother Family Medical History: Coronary Artery Disease (CAD) General Exam Limitations: no limitations General appearance: alert, in no apparent distress Head exam: Present: atraumatic Eye exam: Present: normal appearance, PERRL, scleral icterus ENT exam: Present: normal oropharynx Neck exam: Present: normal inspection Respiratory exam: Present: normal lung sounds bilaterally Cardiovascular Exam: Present: regular rate, normal rhythm GI/Abdominal exam: Present: soft, tenderness (Minimal tenderness near the periumbilical region which patient states is chronic from her hernia repair.). Absent: distended, organomegaly Extremities exam: Present: normal inspection Neurological exam: Present: alert Psychiatric exam: Present: normal affect, normal mood Skin exam: Present: other (Jaundice appearance to the skin) Course Vital Signs 11/15/18 09:36 Temperature 98.4 F Pulse Rate 78 Respiratory 18 Rate Blood Pressure 134/82 O2 Sat by Pulse 99 Oximetry Medical Decision Making - Medical Decision Making Patient reevaluated and resting comfortably in bed. Patient updated on results and plan. Case was discussed in detail with Dr. Lopez, who will admit covering for Dr. Fonseca. GI will be placed on consult. Ultrasound and hepatitis panel are pending. - Lab Data Result diagrams: 11/15/18 09:54 11/15/18 09:54 Lab Results 11/15/18 11/15/18 11/15/18 Range/Units 09:54 09:54 09:54 WBC 6.0 (3.8-10.6) k/uL RBC 4.35 (3.80-5.40) m/uL Hgb 13.6 (11.4-16.0) gm/dL Hct 41.8 (34.0-46.0) % MCV 96.2 (80.0-100.0) fL MCH 31.3 (25.0-35.0) pg MCHC 32.5 (31.0-37.0) g/dL RDW 17.1 H (11.5-15.5) % Plt Count 242 (150-450) k/uL Neutrophils % (Manual) 59 % Lymphocytes % (Manual) 20 % Monocytes % (Manual) 17 % Eosinophils % (Manual) 4 % Neutrophils # (Manual) 3.54 (1.3-7.7) k/uL Lymphocytes # (Manual) 1.20 (1.0-4.8) k/uL Monocytes # (Manual) 1.02 H (0-1.0) k/uL Eosinophils # (Manual) 0.24 (0-0.7) k/uL Nucleated RBCs 0 (0-0) /100 WBC Manual Slide Review Performed Anisocytosis Slight Macrocytosis Slight Target Cells Present PT 10.1 (9.0-12.0) sec INR 0.9 (<1.2) APTT 25.1 (22.0-30.0) sec Sodium 139 (137-145) mmol/L Potassium 4.6 (3.5-5.1) mmol/L Chloride 106 (98-107) mmol/L Carbon Dioxide 24 (22-30) mmol/L Anion Gap 9 mmol/L BUN 14 (7-17) mg/dL Creatinine 0.74 (0.52-1.04) mg/dL Est GFR (CKD-EPI)AfAm 90 (>60 ml/min/1.73 sqM) Est GFR (CKD-EPI)NonAf 78 (>60 ml/min/1.73 sqM) Glucose 123 H (74-99) mg/dL Calcium 8.9 (8.4-10.2) mg/dL Total Bilirubin 13.6 H (0.2-1.3) mg/dL AST 243 H (14-36) U/L ALT 413 H (9-52) U/L Alkaline Phosphatase 475 H (38-126) U/L Total Protein 7.1 (6.3-8.2) g/dL Albumin 3.9 (3.5-5.0) g/dL Amylase 74 (30-110) U/L Lipase 193 (23-300) U/L Urine Color Urine Appearance (Clear) Urine pH (5.0-8.0) Ur Specific Cougar (1.001-1.035) Urine Protein (Negative) Urine Glucose (UA) (Negative) Urine Ketones (Negative) Urine Blood (Negative) Urine Nitrite (Negative) Urine Bilirubin (Negative) Urine Urobilinogen (<2.0) mg/dL Ur Leukocyte Esterase (Negative) 11/15/18 Range/Units 10:00 WBC (3.8-10.6) k/uL RBC (3.80-5.40) m/uL Hgb (11.4-16.0) gm/dL Hct (34.0-46.0) % MCV (80.0-100.0) fL MCH (25.0-35.0) pg MCHC (31.0-37.0) g/dL RDW (11.5-15.5) % Plt Count (150-450) k/uL Neutrophils % (Manual) % Lymphocytes % (Manual) % Monocytes % (Manual) % Eosinophils % (Manual) % Neutrophils # (Manual) (1.3-7.7) k/uL Lymphocytes # (Manual) (1.0-4.8) k/uL Monocytes # (Manual) (0-1.0) k/uL Eosinophils # (Manual) (0-0.7) k/uL Nucleated RBCs (0-0) /100 WBC Manual Slide Review Anisocytosis Macrocytosis Target Cells PT (9.0-12.0) sec INR (<1.2) APTT (22.0-30.0) sec Sodium (137-145) mmol/L Potassium (3.5-5.1) mmol/L Chloride (98-107) mmol/L Carbon Dioxide (22-30) mmol/L Anion Gap mmol/L BUN (7-17) mg/dL Creatinine (0.52-1.04) mg/dL Est GFR (CKD-EPI)AfAm (>60 ml/min/1.73 sqM) Est GFR (CKD-EPI)NonAf (>60 ml/min/1.73 sqM) Glucose (74-99) mg/dL Calcium (8.4-10.2) mg/dL Total Bilirubin (0.2-1.3) mg/dL AST (14-36) U/L ALT (9-52) U/L Alkaline Phosphatase (38-126) U/L Total Protein (6.3-8.2) g/dL Albumin (3.5-5.0) g/dL Amylase (30-110) U/L Lipase (23-300) U/L Urine Color Dark Brown Urine Appearance Clear (Clear) Urine pH 5.5 (5.0-8.0) Ur Specific Cougar 1.026 (1.001-1.035) Urine Protein Trace H (Negative) Urine Glucose (UA) Negative (Negative) Urine Ketones Negative (Negative) Urine Blood Negative (Negative) Urine Nitrite Negative (Negative) Urine Bilirubin 4+ H (Negative) Urine Urobilinogen 3.0 (<2.0) mg/dL Ur Leukocyte Esterase Negative (Negative) Disposition Clinical Impression: Jaundice of recent onset Disposition: ADMITTED IP TO THIS HOSP Is patient prescribed a controlled substance at d/c from ED?: No Referrals: Robin Fonseca DO [Primary Care Provider] - 1-2 days Decision Time: 10:46
--- NOTE | 2018-11-15 10:15 | XR ---
EXAMINATION TYPE: XR KUB DATE OF EXAM: 11/15/2018 10:10 AM CLINICAL HISTORY: Abdominal pain and nausea TECHNIQUE: Two Upright KUB images of the abdomen are obtained. COMPARISON: CT December 26, 2016. FINDINGS: Scattered gas is seen in non-distended stomach and small bowel loops. Gas and fecal materia l is seen in non-distended colon. Underlying levoconvex scoliosis centered at L2 level redemonstrated . Lung bases are clear. No pneumoperitoneum. Scattered pelvic phleboliths. IMPRESSION: Overall nonobstructive bowel gas pattern.
[2018-11-15 10:18] LABS: Anisocytosis Slight; HCT 41.8 % (34.0-46.0); HGB 13.6 gm/dL (11.4-16.0); MCH 31.3 pg (25.0-35.0); MCHC 32.5 g/dL (31.0-37.0); MCV 96.2 fL (80.0-100.0); Macrocytosis Slight; Mean Platelet Volume 9.7; Platelet Count 242 k/uL (150-450); RBC 4.35 m/uL (3.80-5.40); RDW 17.1 % (11.5-15.5)
[2018-11-15 10:18] LABS: Appearance,Urine Clear (Clear); Bilirubin,Urine 4+ (Negative); Blood,Urine Negative (Negative); Color,Urine Dark Brown; Glucose,Urine (UA) Negative (Negative); Ketones,Urine Negative (Negative); Leukocyte Esterase,Urine Negative (Negative); Nitrite,Urine Negative (Negative); PH, Urine 5.5 (5.0-8.0); Protein,Urine Trace (Negative); Specific Gravity,Urine 1.026 (1.001-1.035)
[2018-11-15 10:25] LABS: Albumin 3.9 g/dL (3.5-5.0); Calcium 8.9 mg/dL (8.4-10.2); Potassium 4.6 mmol/L (3.5-5.1); Total Bilirubin 13.6 mg/dL (0.2-1.3); Total Protein 7.1 g/dL (6.3-8.2)
[2018-11-15 10:37] LABS: Eosinophils # (M) 0.24 k/uL (0-0.7); Monocytes # (M) 1.02 k/uL (0-1.0); Neutrophils % (M) 59 %; Nucleated Red Blood Cells 0 /100 WBC (0-0); Total Cells Counted 100
[2018-11-15 10:38] LABS: INR 0.9 (<1.2); Partial Thromboplastin Time 25.1 sec (22.0-30.0); Prothrombin Time 10.1 sec (9.0-12.0); Target Cells Present
[2018-11-15] MEDS ORDERED: NALOXONE 0.4 MG/ML 1 ML VIAL IV PRN (10:50)
--- NOTE | 2018-11-15 11:19 | US ---
EXAMINATION TYPE: US gallbladder DATE OF EXAM: 11/15/2018 COMPARISON: CT December 26, 2016 CLINICAL HISTORY: Pain. abd pain x 2 weeks, jaundice, elevated bilirubin EXAM MEASUREMENTS: Liver Length: 14.0 cm Gallbladder Wall: 0.2 cm CBD: 0.5 cm Right Kidney: 7.7 x 4.5 x 4.6 cm Pancreas: portion seen wnl Liver: heterogeneous, intercostal images only due to bowel gas, intrahepatic duct dilatation seen Gallbladder: rolled LLD and that is when mobile debris was seen within neck of GB and stone seen Evidence for sonographic Schmitz's sign: yes CBD: wnl Right Kidney: small in size, difficult to optimize due to gas and rib shadow Visualized portion of pancreas show no worrisome mass or ductal dilatation. Visualized liver is heter ogeneous with mild to moderate intrahepatic ductal dilatation. No extrahepatic ductal dilatation. Jes pect small stones and/or gallbladder sludge. No shadowing mobile gallstones. IMPRESSION: Suspect new mild to moderate central intrahepatic ductal dilatation without extrahepatic dilatation. Developing central liver mass needs to be considered. Follow-up contrast enhanced liver p rotocol CT or MRI is advised.
[2018-11-15] MEDS: SODIUM CHLORIDE 0.9% 1,000 ML IV SCH ×2 (14:32→19:38)
[2018-11-15] MEDS ORDERED: ENOXAPARIN 40 MG/0.4 ML SYRINGE SQ SCH (17:00)
--- NOTE | 2018-11-15 17:02 | P.HPIM ---
History of Present Illness H&P Date: 11/15/18 Chief Complaint: Jaundiced History of presenting complaint: This is a very pleasant 78-year-old patient of Dr. Fonseca. Chronic stable medical conditions include atrial fibrillation, osteoarthritis, GERD, scoliosis and rectal prolapse. About a week ago patient noticed urine to be dark and decided to go and see if family doctor. Was prescribed antibiotics and started on Bactrim. About 4 days ago she noticed that she was getting more itching and noticed in the mirror about 2 days ago that she's becoming more yellow. She also developed nausea. Appetite hasn't been good for last week. Also lost some weight in the last 2 weeks. Patient complains of chronic upper abdominal pain for many years on a life. She thinks she may have had some hepatitis exposure in the 90s. 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 But there is no need to contact no blood transfusion and no sexual activity to explain the same. Patient's [id number] is by the bedside. Review of systems: GEN.: Tired, decreased appetite EYES: None HEENT: None NECK: None RESPIRATORY: None CARDIOVASCULAR: None GASTROINTESTINAL: Nausea with chronic upper abdominal pain GENITOURINARY: Dark urine MUSCULOSKELETAL: Pain in joints LYMPHATICS: None HEMATOLOGICAL: None PSYCHIATRY: None NEUROLOGICAL: None Past medical history: Atrial fibrillation, GERD, osteoarthritis, scoliosis, DJD, ocular migraines, hiatal hernia, rectal prolapse Social history: Lives alone. No smoking or alcohol. Was a paraprofessional looking at the school. Family history: Coronary artery disease. Physical examination: VITAL SIGNS: 98.4, 78, 18, 134/82, 99% room air GENERAL: Average built, laying in bed, but tired. EYES: Pupils equal. Conjunctiva icterusl. HEENT: External appearance of nose and ears normal, oral cavity grossly normal. NECK: JVD not raised; masses not palpable. HEART: First and second heart sounds are normal; no edema. LUNGS: Respiratory rate normal; clear to auscultation. ABDOMEN: Soft, right upper quadrant tenderness, no guarding or rigidity, liver spleen not palpable, no masses palpable. PSYCH: Alert and oriented x3; mood and affect normal. NEUROLOGICAL: Cranial nerves grossly intact; no facial asymmetry, power and sensation grossly intact. LYMPHATICS: No lymph nodes palpable in the axilla and neck MUSCULOSKELETAL: Evidence of osteoarthritis especially in the hands INVESTIGATIONS, reviewed in the clinical context: White count 6 hemoglobin 13.6 platelets 242 potassium 4.6 bun 14 creatinine 0.74 Bilirubin 3.6 AST 243 ALT 413 alkaline phosphatase 476 Ultrasound-showing intrahepatic stasis Assessment: -This is a patient of symptoms are rather short-lived for about 7 days. Patient was receiving Bactrim for UTI. And she started having nausea and became jaundiced. Patient has cholestatic picture. Most likely this is Bactrim- induced hepatitis. Need to rule out other causes. -History of atrial fibrillation -Primary osteoarthritis -GERD -Chronic scoliosis -Chronic rectal prolapse Plan: Acute hepatitis panel was ordered. Lovenox for DVT prophylaxis. Repeat labs in the morning. Expect the stopping of Bactrim LFTs to start coming down. We'll get a GI opinion. Care was discussed with the patient. Questions were answered. Past Medical History Past Medical History: Atrial Fibrillation, GERD/Reflux, Osteoarthritis (OA) Additional Past Medical History / Comment(s): Possible hepatitis B years ago, recent UTI with antibiotic, past UTIs, paroxysmal afib, cardiac murmur, scoliosis, past occasional low back pain, DJD, cervical pain d/t position, ocular migraines, occasional numbness/tingling to toes bilateral feet, hiatal hernia, rectal prolapse. History of Any Multi-Drug Resistant Organisms: None Reported Past Surgical History: Appendectomy, Breast Surgery, Hernia Repair, Hysterectomy Additional Past Surgical History / Comment(s): Umbilical hernia repair, EGD, colonoscopy, bilateral cataract removals/lens implants, L breast benign biopsy Past Anesthesia/Blood Transfusion Reactions: Family History of Problems w/ Anesthesia, Postoperative Nausea & Vomiting (PONV) Additional Past Anesthesia/Blood Transfusion Reaction / Comment(s): Pt states her mother's heart stopped during gallbladder surgery. Smoking Status: Never smoker - Past Family History Mother Family Medical History: Coronary Artery Disease (CAD), CVA/TIA Additional Family Medical History / Comment(s): Mother had cardiac valve disease. She from a postop CVA. Father Additional Family Medical History / Comment(s): Father had myasthenia gravis. Medications and Allergies Home Medications Medication Instructions Recorded Confirmed Type Multivit with Calcium,Iron,Min 1 tab PO DAILY 11/08/15 11/15/18 History [Women's Daily Multivitamin] Cholecalciferol [Vitamin D3 (25 3,000 unit PO BID 10/01/16 11/15/18 History Mcg = 1000 Iu)] Apixaban [Eliquis] 5 mg PO BID #60 tab 10/02/16 11/15/18 Rx Metoprolol Tartrate [Lopressor] 25 mg PO BID 04/27/17 11/15/18 History Sulfamethox-Tmp 800-160Mg [Bactrim 1 tab PO Q12HR #14 tab 11/07/18 11/15/18 Rx DS 800-160 mg] Ondansetron [Zofran] 4 mg PO Q8H PRN 11/15/18 11/15/18 History Pantoprazole Sodium [Protonix] 40 mg PO DAILY 11/15/18 11/15/18 History Allergies Allergy/AdvReac Type Severity Reaction Status Date / Time cefuroxime Allergy Itching Verified 11/15/18 10:14 levofloxacin [From Levaquin] Allergy Rash/Hives Verified 11/15/18 10:14 Additives in inhalers Allergy Rapid Uncoded 11/15/18 09:38 Heart Rate Physical Exam Vitals: Vital Signs Temp Pulse Resp BP Pulse Ox 11/15/18 16:00 98 F 79 16 108/68 97 11/15/18 09:36 98.4 F 78 18 134/82 99 Intake and Output 11/15/18 11/15/18 11/15/18 06:59 14:59 22:59 Other: Voiding Method Toilet Weight 62.142 kg Results CBC & Chem 7: 11/15/18 09:54 11/15/18 09:54 Labs: Abnormal Lab Results - Last 24 Hours (Table) 11/15/18 11/15/18 11/15/18 Range/Units 09:54 09:54 10:00 RDW 17.1 H (11.5-15.5) % Monocytes # (Manual) 1.02 H (0-1.0) k/uL Glucose 123 H (74-99) mg/dL Total Bilirubin 13.6 H (0.2-1.3) mg/dL AST 243 H (14-36) U/L ALT 413 H (9-52) U/L Alkaline Phosphatase 475 H (38-126) U/L Urine Protein Trace H (Negative) Urine Bilirubin 4+ H (Negative) Thrombosis Risk Factor Assmnt - Choose All That Apply Any of the Below Risk Factors Present?: Yes Other Risk Factors: Yes Each Risk Factor Represents 3 Points: Age 75 years or older Other congenital or acquired thrombophilia - If yes, enter type in comment: No Thrombosis Risk Factor Assessment Total Risk Factor Score: 3 Thrombosis Risk Factor Assessment Level: Moderate Risk
[2018-11-15] MEDS ORDERED: IOPAMIDOL-300 CONTRAST 30 ML VIAL (ORAL USE) PO PRN (18:08)
[2018-11-15] MEDS: METOPROLOL TARTRATE 25 MG TAB PO SCH (19:39)
[2018-11-15] MEDS: APIXABAN 5 MG TAB PO SCH (19:39)
[2018-11-15 21:15] VITALS: RESP 20
[2018-11-15] MEDS ORDERED: hydrOXYzine HCL 25 MG TAB PO PRN (22:06)
--- NOTE | 2018-11-15 22:21 | P.CONS ---
History of Present Illness - Reason for Consult Consult date: 11/15/18 Jaundice Requesting physician: Gera Lopez - Chief Complaint Jaundice pruritus - History of Present Illness 78-year-old female with medical history significant for atrial fibrillation on anticoagulation therapy, osteoarthritis, GERD and rectal prolapse presented to the hospital with a constellation of symptoms. Initially the patient had been seen for dark urine. She reports antibiotic treatment initially with Augmentin which was subsequently switched to Bactrim. She reports dark urine occurring approximately one week ago. She also reports pruritus occurring 4 days ago and jaundice which she noticed 2 days prior to presentation. Over the past 2 weeks she's had decreased oral intake and a general feeling of being unwell. She denies any history of liver disease or heavy alcohol use. She has a questionable exposure to hepatitis B in the past through work. However she denies any prior blood transfusions, high risk sexual behavior or other risk factors. Review of Systems REVIEW OF SYSTEMS: CONSTITUTIONAL: Denies any fevers, chills, weight change or fatigue. CARDIOVASCULAR: Denies any chest pain, palpitations high or low blood pressures, but history of atrial fibrillation. RESPIRATORY: Denies any shortness of breath, hemoptysis or cough. GENITOURINARY: No dysuria or hematuria, but dark urine.. MUSCULOSKELETAL: No weakness reported. SKIN: Denies any new rashes or lesions, but reports jaundice and pruritus. PSYCHIATRIC: Denies any depression or anxiety. NEUROLOGY: Denies headache, denies any new focal deficits. EARS/NOSE/THROAT: No recent hearing change, congestion, nasal discharge or sore throat. EYES: No pain in eyes, discharge or change in vision. GASTROINTESTINAL: As per HPI. Past Medical History Past Medical History: Atrial Fibrillation, GERD/Reflux, Osteoarthritis (OA) Additional Past Medical History / Comment(s): Possible hepatitis B years ago, recent UTI with antibiotic, past UTIs, paroxysmal afib, cardiac murmur, scoliosis, past occasional low back pain, DJD, cervical pain d/t position, ocular migraines, occasional numbness/tingling to toes bilateral feet, hiatal hernia, rectal prolapse. History of Any Multi-Drug Resistant Organisms: None Reported Past Surgical History: Appendectomy, Breast Surgery, Hernia Repair, Hysterectomy Additional Past Surgical History / Comment(s): Umbilical hernia repair, EGD, colonoscopy, bilateral cataract removals/lens implants, L breast benign biopsy Past Anesthesia/Blood Transfusion Reactions: Family History of Problems w/ Anesthesia, Postoperative Nausea & Vomiting (PONV) Additional Past Anesthesia/Blood Transfusion Reaction / Comm: Pt states her mother's heart stopped during gallbladder surgery. Smoking Status: Never smoker - Past Family History Mother Family Medical History: Coronary Artery Disease (CAD), CVA/TIA Additional Family Medical History / Comment(s): Mother had cardiac valve disease. She from a postop CVA. Father Additional Family Medical History / Comment(s): Father had myasthenia gravis. Medications and Allergies Home Medications Medication Instructions Recorded Confirmed Type Multivit with Calcium,Iron,Min 1 tab PO DAILY 11/08/15 11/15/18 History [Women's Daily Multivitamin] Cholecalciferol [Vitamin D3 (25 3,000 unit PO BID 10/01/16 11/15/18 History Mcg = 1000 Iu)] Apixaban [Eliquis] 5 mg PO BID #60 tab 10/02/16 11/15/18 Rx Metoprolol Tartrate [Lopressor] 25 mg PO BID 04/27/17 11/15/18 History Sulfamethox-Tmp 800-160Mg [Bactrim 1 tab PO Q12HR #14 tab 11/07/18 11/15/18 Rx DS 800-160 mg] Ondansetron [Zofran] 4 mg PO Q8H PRN 11/15/18 11/15/18 History Pantoprazole Sodium [Protonix] 40 mg PO DAILY 11/15/18 11/15/18 History Allergies Allergy/AdvReac Type Severity Reaction Status Date / Time cefuroxime Allergy Itching Verified 11/15/18 10:14 levofloxacin [From Levaquin] Allergy Rash/Hives Verified 11/15/18 10:14 Additives in inhalers Allergy Rapid Uncoded 11/15/18 09:38 Heart Rate Physical Exam Vitals: Vital Signs Temp Pulse Pulse Resp BP BP Pulse Ox 11/15/18 20:45 98.4 F 71 20 97/59 96 11/15/18 16:00 98 F 79 16 108/68 97 11/15/18 09:36 98.4 F 78 18 134/82 99 Intake and Output 11/15/18 11/15/18 11/15/18 06:59 14:59 22:59 Other: Voiding Method Toilet Weight 62.142 kg On physical examination, patient appears comfortable in no apparent distress. HEAD: Normocephalic, atraumatic. EYES: Scleral icterus. No conjunctival injection. MOUTH: No lesions, tongue midline. NECK: Trachea midline, no gross abnormalities. CHEST: Clear to auscultation with no wheezing or rhonchi appreciated. HEART: Irregularly irregular. ABDOMEN: Soft, obese. Bowel sounds are positive. No organomegaly. No guarding or rigidity. EXTREMITIES: No pedal edema. SKIN: No rashes, jaundice. NEUROLOGIC: Alert and oriented x3. No focal deficits. Results CBC & Chem 7: 11/15/18 09:54 11/15/18 09:54 Labs: Abnormal Lab Results - Last 24 Hours (Table) 11/15/18 11/15/18 11/15/18 Range/Units 09:54 09:54 10:00 RDW 17.1 H (11.5-15.5) % Monocytes # (Manual) 1.02 H (0-1.0) k/uL Glucose 123 H (74-99) mg/dL Total Bilirubin 13.6 H (0.2-1.3) mg/dL AST 243 H (14-36) U/L ALT 413 H (9-52) U/L Alkaline Phosphatase 475 H (38-126) U/L Urine Protein Trace H (Negative) Urine Bilirubin 4+ H (Negative) US - abdomen: report reviewed (Ultrasound of the abdomen with [id number] intrahepatic ductal dilation and no other acute finding) Assessment and Plan (1) Elevated liver enzymes Narrative/Plan: 78-year-old female who presented with a constellation of symptoms including jaundice, dark urine, pruritus and decreased oral intake. Patient had elevation in her liver enzymes and predominantly a cholestatic pattern with total bilirubin 13.6, alkaline phosphatase 175, AST 243 and MALT 413. Patient does report recent antibiotic treatment initially with Augmentin which was subsequently switched to Bactrim. Ultrasound of the abdomen was significant for some findings of intrahepatic biliary dilation. At this time suspicion is for drug-induced liver injury, however. Neurology order to rule out underlying intrinsic liver disease, as well as computed tomography scan of the abdomen ordered to rule out obstructed pattern of jaundice. Patient has refused MRI as she is unable to tolerate the imaging study due to anxiety/panic attacks. Current Visit: Yes Status: Acute Code(s): R74.8 - ABNORMAL LEVELS OF OTHER SERUM ENZYMES SNOMED Code(s): 415358645 (2) Pruritic disorder Current Visit: Yes Status: Acute Code(s): L29.9 - PRURITUS, UNSPECIFIED SNOMED Code(s): 886327967 (3) Jaundice of recent onset Current Visit: Yes Status: Acute Code(s): R17 - UNSPECIFIED JAUNDICE SNOMED Code(s): 42796672 (4) Atrial fibrillation with RVR Current Visit: No Status: Acute Code(s): I48.91 - UNSPECIFIED ATRIAL FIBRILLATION SNOMED Code(s): 265596363404107 Plan: Supportive care Okay for diet Continue to monitor CBC, CMP, INR Full liver serologies ordered Plan was for MRI/MRCP however patient refuses due to underlying anxiety, panic attacks Computed tomography scan of the abdomen ordered Atarax ordered for pruritus, if patient continues to have symptoms can add a bile salt binder such as cholestyramine Thank you for allowing us to participate in the care of the patient we will continue to follow
--- NOTE | 2018-11-15 23:09 | CT ---
EXAMINATION TYPE: CT abdomen wo/w con DATE OF EXAM: 11/15/2018 HISTORY: Elevated liver enzymes, intrahepatic dilation, jaundice CT DLP: 490.90mGycm Automated Exposure Control for Dose Reduction was Utilized. CONTRAST: CT scan of the abdomen is performed without oral but without and with IV Contrast, patient injected w ith 100 mL of Isovue 300. COMPARISON: Gallbladder ultrasound earlier today. CT abdomen and pelvis December 26, 2016 FINDINGS: LUNG BASES: No significant abnormality is appreciated. LIVER/GB: Small dependent calcified gallstones. No surrounding fat stranding or wall thickening. Conf irmation of new moderate to severe central intrahepatic biliary dilatation more prominent in the left hepatic lobe new from 2017 CT. No obvious central intrahepatic mass identified. No extrahepatic bili rocky dilatation is seen. Patent central portal vein. Patent hepatic drains draining into IVC Abrupt cu t off internal intrahepatic ducts axial image 17 series 9 is strongly suspicious for central neoplasm though this area is vague and slightly hypodense relative to adjacent liver. Central cholangiocarcin josette is suspected. Consider ERCP follow-up to further evaluate. PANCREAS: Prominent pancreatic head without mass or ductal dilatation. SPLEEN: No significant abnormality is seen. ADRENALS: No significant abnormality is seen. KIDNEYS: Subcentimeter simple appearing cyst laterally right kidney lower pole level delayed image 40 . BOWEL: Stable small to moderate size hiatal hernia. Oral contrast does not reach colonic level. No gordon spicious bowel dilatation is seen. LYMPH NODES: No greater than 1cm abdominal lymph nodes are appreciated. OSSEOUS STRUCTURES: Underlying levoconvex scoliosis centered at L2 level. OTHER: Mild to moderate calcified plaque of the aorta. IMPRESSION: Confirmation of new moderate intrahepatic biliary dilatation with abrupt biliary cut off. Central liver mass not well-seen but strongly suspected. 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 Consider ERCP to further evaluate and possibly sample.
[2018-11-16 05:43] VITALS: BP 109/63; PULSE 68; TEMP 97.7
[2018-11-16] MEDS: SODIUM CHLORIDE 0.9% 1,000 ML IV SCH ×2 (06:10→12:38)
[2018-11-16] MEDS: METOPROLOL TARTRATE 25 MG TAB PO SCH (07:16)
[2018-11-16] MEDS: APIXABAN 5 MG TAB PO SCH (07:16)
[2018-11-16] MEDS ORDERED: PANTOPRAZOLE 40 MG TABLET PO SCH (07:30)
[2018-11-16 08:20] LABS: ALT 309 U/L (9-52); AST 175 U/L (14-36); African American GFR (CKD) >90 (>60 ml/min/1.73 sqM); Alkaline Phosphatase 403 U/L (38-126); Amylase 47 U/L (30-110); Anion Gap 9 mmol/L; Blood Urea Nitrogen 11 mg/dL (7-17); Calcium 8.9 mg/dL (8.4-10.2); Carbon Dioxide 23 mmol/L (22-30); Chloride 107 mmol/L (98-107); Glucose 76 mg/dL (74-99); Potassium 4.3 mmol/L (3.5-5.1); Sodium 139 mmol/L (137-145); Total Bilirubin 14.7 mg/dL (0.2-1.3); Total Protein 5.8 g/dL (6.3-8.2)
[2018-11-16 08:22] LABS: Prothrombin Time 11.1 sec (9.0-12.0)
[2018-11-16 09:19] LABS: LDH 436 U/L (313-618)
[2018-11-16 11:07] LABS: Protein, Total 5.2 g/dL (6.2-8.2)
[2018-11-16 12:10] LABS: Iron Saturation 64.23 (12.00-45.00)
[2018-11-16 12:22] LABS: Ceruloplasmin 31.8 mg/dL (20.0-60.0)
--- NOTE | 2018-11-16 17:26 | P.PN ---
Subjective Progress Note Date: 11/16/18 Principal diagnosis: Jaundice, pruritus Objective - Vital Signs Vital signs: Vital Signs Temp 97.7 F 11/16/18 05:00 Pulse 68 11/16/18 05:00 Resp 20 11/16/18 05:00 BP 109/63 11/16/18 05:00 Pulse Ox 97 11/16/18 05:00 Intake & Output 11/15/18 11/16/18 11/16/18 18:59 06:59 18:59 Intake Total 300 Balance 300 Weight 62.142 kg Intake: Oral 300 Other: Voiding Method Toilet Toilet Toilet # Voids 2 1 - Exam On physical examination, patient appears comfortable in no apparent distress. HEAD: Normocephalic, atraumatic. EYES: Scleral icterus. No conjunctival injection. MOUTH: No lesions, tongue midline. NECK: Trachea midline, no gross abnormalities. CHEST: Clear to auscultation with no wheezing or rhonchi appreciated. HEART: Regular rate and rhythm. ABDOMEN: Soft. Bowel sounds are positive. No organomegaly. No guarding or rigidity. EXTREMITIES: No pedal edema. SKIN: No rashes, jaundice. NEUROLOGIC: Alert and oriented x3. No focal deficits. - Labs CBC & Chem 7: 11/15/18 09:54 11/16/18 07:27 Labs: Abnormal Lab Results - Last 24 Hours (Table) 11/16/18 11/16/18 Range/Units 07:27 07:27 Iron Saturation 64.23 H (12.00-45.00) Total Bilirubin 14.7 H (0.2-1.3) mg/dL AST 175 H (14-36) U/L ALT 309 H (9-52) U/L Alkaline Phosphatase 403 H (38-126) U/L Total Protein 5.8 L (6.3-8.2) g/dL Total Protein (PEP) 5.2 L (6.2-8.2) g/dL Albumin 3.0 L (3.5-5.0) g/dL Assessment and Plan (1) Elevated liver enzymes Narrative/Plan: 78-year-old female who presented with a constellation of symptoms including jaundice, dark urine, pruritus and decreased oral intake. Patient had elevation in her liver enzymes and predominantly a cholestatic pattern with total bilirubin 13.6, alkaline phosphatase 175, AST 243 and MALT 413. Patient does report recent antibiotic treatment initially with Augmentin which was subsequently switched to Bactrim. Ultrasound of the abdomen was significant for some findings of intrahepatic biliary dilation. At this time suspicion is for drug-induced liver injury, however. Serology ordered to rule out underlying intrinsic liver disease and negative so far, as well as computed tomography scan of the abdomen ordered reporting some intrahepatic dilation with no discrete mass seen. Patient has refused MRI as she is unable to tolerate the imaging study due to anxiety/panic attacks. Status: Acute Code(s): R74.8 - ABNORMAL LEVELS OF OTHER SERUM ENZYMES SNOMED Code(s): 848266256 (2) Pruritic disorder Status: Acute Code(s): L29.9 - PRURITUS, UNSPECIFIED SNOMED Code(s): 820151272 (3) Jaundice of recent onset Status: Acute Code(s): R17 - UNSPECIFIED JAUNDICE SNOMED Code(s): 85155394 (4) Atrial fibrillation with RVR Status: Acute Code(s): I48.91 - UNSPECIFIED ATRIAL FIBRILLATION SNOMED Code(s): 667666239128033 Plan: Supportive care Okay for diet Continue to monitor CBC, CMP, INR Full liver serologies ordered and negative so far Computed tomography scan did show some intrahepatic dilation and extensive discussion with the patient about treatment options at this time and she would like to be discharged for open MRI, with close follow-up to be scheduled with the gastroenterology office for possible ERCP for referral to tertiary center if needed Atarax ordered for pruritus, if patient continues to have symptoms can add a bile salt binder such as cholestyramine Thank you for allowing us to participate in the care of the patient we will continue to follow
--- NOTE | 2018-11-16 23:35 | P.DS ---
Providers Date of admission: 11/16/18 11:07 Expected date of discharge: 11/16/18 Attending physician: Gera Lopez Consults: 11/15/18 10:50 Consult Physician Urgent Consulting Provider: Mirza Harvey Consult Reason/Comments: New-onset jaundice, hepatitis Do you want consulting provider notified?: Yes Primary care physician: Robin Fonseca [facility] Course: Chief Complaint: Jaundiced Hospital course: This is a very pleasant 78-year-old patient of Dr. Fonseca. Chronic stable medical conditions include atrial fibrillation, osteoarthritis, GERD, scoliosis and rectal prolapse. About a week ago patient noticed urine to be dark and decided to go and see if family doctor. Was prescribed antibiotics and started on Bactrim. About 4 days ago she noticed that she was getting more itching and noticed in the mirror about 2 days ago that she's becoming more yellow. She also developed nausea. Appetite hasn't been good for last week. Also lost some weight in the last 2 weeks. Patient complains of chronic upper abdominal pain for many years on a life. She thinks she may have had some hepatitis exposure in the 90s. 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 But there is no need to contact no blood transfusion and no sexual activity to explain the same. Patient's [id number] is by the bedside. Patient's clinical picture and biochemical picture suggestive of drug-induced cholestatic hepatitis. Patient did have a computed tomography scan of the abdomen done today. Results were inconclusive about a questionable mass. Patient needs an open MRI as she cannot do a MRI. Did discuss with Dr. Parker from GI. At this point to see the patient as an outpatient and he'll decide between MRI and a ERCP. Earlier care was discussed with the patient daughter. Today on the day of discharge patient's symptoms are better. Nausea much improved, pruritus much improved, urine symptoms better. Discussion and discharge planning more than 35 minutes Consultation: Dr. Parker from GI Physical examination: VITAL SIGNS: 97.7, 68, 20, 109/63, 97% room air GENERAL: Sitting on chair, comfortable. EYES: Pupils equal. Conjunctiva icterusl. HEENT: External appearance of nose and ears normal, oral cavity grossly normal. NECK: JVD not raised; masses not palpable. HEART: First and second heart sounds are normal; no edema. LUNGS: Respiratory rate normal; clear to auscultation. ABDOMEN: Soft, right upper quadrant tenderness, no guarding or rigidity, liver spleen not palpable, no masses palpable. PSYCH: Alert and oriented x3; mood and affect normal. 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 -Questionable liver mass to be worked up further as an outpatient -History of atrial fibrillation -Primary osteoarthritis -GERD -Chronic scoliosis -Chronic rectal prolapse Disposition: Home Patient Condition at Discharge: Undetermined Plan - Discharge Summary Discharge Rx Participant: No New Discharge Prescriptions: Continue Multivit with Calcium,Iron,Min [Women's Daily Multivitamin] 1 tab PO DAILY Cholecalciferol [Vitamin D3 (25 Mcg = 1000 Iu)] 3,000 unit PO BID Apixaban [Eliquis] 5 mg PO BID #60 tab Metoprolol Tartrate [Lopressor] 25 mg PO BID Pantoprazole Sodium [Protonix] 40 mg PO DAILY Discontinued Sulfamethox-Tmp 800-160Mg [Bactrim DS 800-160 mg] 1 tab PO Q12HR #14 tab Ondansetron [Zofran] 4 mg PO Q8H PRN PRN Reason: Nausea Discharge Medication List Multivit with Calcium,Iron,Min [Women's Daily Multivitamin] 1 tab PO DAILY 11/08/15 [History] Cholecalciferol [Vitamin D3 (25 Mcg = 1000 Iu)] 3,000 unit PO BID 10/01/16 [History] Apixaban [Eliquis] 5 mg PO BID #60 tab 10/02/16 [Rx] Metoprolol Tartrate [Lopressor] 25 mg PO BID 04/27/17 [History] Pantoprazole Sodium [Protonix] 40 mg PO DAILY 11/15/18 [History] Follow up Appointment(s)/Referral(s): Robin Fonseca DO [Primary Care Provider] - 1-2 days Velocci,Mirza, MD [STAFF PHYSICIAN] - 1 Week Ambulatory/Diagnostic Orders: Comprehensive Metabolic Panel [LAB.AMB] Time Frame: 1 Week, Location: None Selected Patient Instructions/Handouts: Jaundice (DC) Activity/Diet/Wound Care/Special Instructions: MRi of the abdomen with and without contrast Diagnosis: elevated bili, jaundice, abd ct scan of abd Discharge Disposition: HOME SELF-CARE
[2018-11-17 10:06] LABS: Albumin 2.74 g/dL (3.80-4.90); Gamma Globulin 0.67 g/dL (0.70-1.50)
[2018-11-17 11:43] LABS: Liver/Kidney Microsome Antibod 1.3 UNITS (<=20)
== END 2018-11-16 13:59 | disposition home or self-care (01) | DRG 443 ==
LOC: EC 09:33 → 4MS4W 11:10 → OBSVTOIN 11-16 11:07
PROVIDERS: ADMIT Hospitalist; ATTEND Hospitalist
DX: K71.0 Toxic liver disease with cholestasis (principal); K62.3 Rectal prolapse; L29.9 Pruritus, unspecified; F41.0 Panic disorder [episodic paroxysmal anxiety]; I48.91 Unspecified atrial fibrillation; K21.9 Gastro-esophageal reflux disease without esophagitis; M19.91 Primary osteoarthritis, unspecified site; G43.109 Migraine with aura, not intractable, without status migrainosus; T36.8X5A Adverse effect of other systemic antibiotics, initial encounter; M41.9 Scoliosis, unspecified; Z96.1 Presence of intraocular lens; Z79.01 Long term (current) use of anticoagulants; Z79.899 Other long term (current) drug therapy; Z82.49 Family history of ischemic heart disease and other diseases of the circulatory system; Z87.891 Personal history of nicotine dependence; Z90.710 Acquired absence of both cervix and uterus; Z88.1 Allergy status to other antibiotic agents; Z91.048 Other nonmedicinal substance allergy status; Z98.42 Cataract extraction status, left eye; Z98.41 Cataract extraction status, right eye
CPT/HCPCS: 36415; 74018; 74170; 76705; 80053; 80074; 81003; 82103; 82150; 82390; 82728; 83516; 83540; 83550; 83615; 83690; 84165; 85025; 85610; 85730; 86038; 86376; 96360; 99285

== ENCOUNTER 2019-01-09 11:37 | Emergency (ER) | payer MEDICARE ==
[2019-01-09] MEDS ORDERED: HYDROmorphone 1 MG/ML 1 ML SYRINGE IVP STA (12:12)
[2019-01-09] MEDS ORDERED: SODIUM CHLORIDE 0.9% 1,000 ML IV STA (12:12)
[2019-01-09] MEDS ORDERED: ONDANSETRON 4 MG/2 ML VIAL IVP STA ×2 (12:12→14:10)
--- NOTE | 2019-01-09 12:20 | ED ---
General Adult HPI - General Chief complaint: Abdominal Pain Stated complaint: Abd Pain Time Seen by Provider: 01/09/19 12:00 Source: patient Mode of arrival: wheelchair Limitations: no limitations - History of Present Illness Initial comments: Patient presents the ED with her grandson for evaluation. Patient states that she is 5 days status post ERCP with bile duct stent placement performed at [facility] by Dr. Gauthier. 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 Patient states that she has had diffuse up per abdominal pain radiating to her back since her ERCP. Patient states that she has also felt "bloated". Patient also admits to feeling nauseated. Patient states that she has been taking the pain medication that was prescribed to her with minimal relief. Patient states that her pain is currently 7 out of 10. Patient denies trauma or injury, fever or chills, headache, chest pain, dyspnea, dizziness, lower abdominal pain, vomiting, diarrhea or constipation, bloody or melanotic stool, dysuria/hematuria/urinary symptoms, or any other symptoms or complaints. - Related Data Home Medications Medication Instructions Recorded Confirmed Pantoprazole Sodium [Protonix] 40 mg PO DAILY 11/15/18 01/09/19 Acetaminophen Tab [Tylenol Tab] 325 mg PO Q4H PRN 01/09/19 01/09/19 Metoprolol Tartrate [Lopressor] 12.5 mg PO BID 01/09/19 01/09/19 Previous Rx's Medication Instructions Recorded Apixaban [Eliquis] 5 mg PO BID #60 tab 10/02/16 Allergies Allergy/AdvReac Type Severity Reaction Status Date / Time adhesive tape Allergy Unknown Verified 01/09/19 12:28 cefuroxime Allergy Itching Verified 01/09/19 12:28 levofloxacin [From Levaquin] Allergy Rash/Hives Verified 01/09/19 12:28 Additives in inhalers AdvReac Rapid Uncoded 01/09/19 12:28 Heart Rate Review of Systems ROS Statement: Those systems with pertinent positive or pertinent negative responses have been documented in the HPI. ROS Other: All systems not noted in ROS Statement are negative. Past Medical History Past Medical History: Atrial Fibrillation, GERD/Reflux, Osteoarthritis (OA) Additional Past Medical History / Comment(s): Possible hepatitis B years ago, UTIs, cardiac murmur, scoliosis, DJD, cervical pain d/t position, ocular migraines, occasional numbness/tingling to toes bilateral feet, hiatal hernia, rectal prolapse, bile duct carncinoma History of Any Multi-Drug Resistant Organisms: None Reported Past Surgical History: Appendectomy, Breast Surgery, Hernia Repair, Hysterectomy Additional Past Surgical History / Comment(s): Umbilical hernia repair, EGD, colonoscopy, bilateral cataract removals/lens implants, L breast benign biopsy, ercp Past Anesthesia/Blood Transfusion Reactions: Family History of Problems w/ Anesthesia, Postoperative Nausea & Vomiting (PONV) Additional Past Anesthesia/Blood Transfusion Reaction / Comment(s): Pt states her mother's heart stopped during gallbladder surgery. Past Psychological History: No Psychological Hx Reported Smoking Status: Never smoker Past Alcohol Use History: None Reported Past Drug Use History: None Reported - Past Family History Mother Family Medical History: Coronary Artery Disease (CAD), CVA/TIA Additional Family Medical History / Comment(s): Mother had cardiac valve disease. She from a postop CVA. Father Additional Family Medical History / Comment(s): Father had myasthenia gravis. General Exam Limitations: no limitations General appearance: alert, in no apparent distress Head exam: Present: atraumatic, normocephalic Eye exam: Present: normal appearance, EOMI ENT exam: Present: mucous membranes moist Respiratory exam: Present: normal lung sounds bilaterally. Absent: respiratory distress, wheezes, rales, rhonchi Cardiovascular Exam: Present: regular rate, normal rhythm, normal heart sounds, other (Normal radial pulses bilaterally) GI/Abdominal exam: Present: soft, other (Moderate epigastric and right upper quadrant tenderness). Absent: distended, guarding, rebound Extremities exam: Absent: tenderness, pedal edema, calf tenderness Back exam: Absent: tenderness, CVA tenderness (R), CVA tenderness (L) Neurological exam: Present: alert, oriented X3 Psychiatric exam: Present: normal affect, normal mood Skin exam: Present: warm, dry, intact, normal color Course Vital Signs 01/09/19 01/09/19 11:42 14:20 Temperature 98.1 F Pulse Rate 113 H 99 Respiratory 18 16 Rate Blood Pressure 121/73 149/72 O2 Sat by Pulse 98 99 Oximetry - Reevaluation(s) Reevaluation #1: 01/09/19 16:15 Patient states that her pain has improved with ED treatment. Patient and daughter are aware of the patient's test results. Patient agrees with transfer back to [facility] if deemed necessary. Reevaluation #2: 01/09/19 16:39 Case, H&P and test results/CT report were discussed with Dr. Camarillo who is a surgeon at [facility]. He recommends transferring the patient to their ED, and letting the ED know that I have spoken with him. He has no further recommendations at this time. 01/09/19 16:44 Case, H&P, test results/CT report and my discussion with Dr. Camarillo as above were discussed with Dr. Beebe who is an ED physician at [facility]. He accepts ambulance transfer to their ED. He has no further recommendations at this time. Medical Decision Making - Medical Decision Making Given the patient's pain, CT findings, and elevated liver function tests, I suspect that the patient may have a biliary obstruction. Patient is afebrile and without leukocytosis. Case was discussed with physicians at the [facility], and they have accepted the patient for transfer to their ED. Patient and daughter are aware of my discussions and the patient's test results, and they agree with ambulance transfer to [facility] at this time. - Lab Data Result diagrams: 01/09/19 12:50 01/09/19 12:50 Lab Results 01/09/19 01/09/19 Range/Units 12:50 12:50 WBC 6.1 (3.8-10.6) k/uL RBC 3.97 (3.80-5.40) m/uL Hgb 12.7 (11.4-16.0) gm/dL Hct 39.2 (34.0-46.0) % MCV 98.7 (80.0-100.0) fL MCH 32.0 (25.0-35.0) pg MCHC 32.4 (31.0-37.0) g/dL RDW 14.4 (11.5-15.5) % Plt Count 299 (150-450) k/uL Neutrophils % 64 % Lymphocytes % 21 % Monocytes % 8 % Eosinophils % 3 % Basophils % 1 % Neutrophils # 3.9 (1.3-7.7) k/uL Lymphocytes # 1.3 (1.0-4.8) k/uL Monocytes # 0.5 (0-1.0) k/uL Eosinophils # 0.2 (0-0.7) k/uL Basophils # 0.0 (0-0.2) k/uL Sodium 139 (137-145) mmol/L Potassium 4.1 (3.5-5.1) mmol/L Chloride 105 (98-107) mmol/L Carbon Dioxide 25 (22-30) mmol/L Anion Gap 9 mmol/L BUN 13 (7-17) mg/dL Creatinine 0.57 (0.52-1.04) mg/dL Est GFR (CKD-EPI)AfAm >90 (>60 ml/min/1.73 sqM) Est GFR (CKD-EPI)NonAf 89 (>60 ml/min/1.73 sqM) Glucose 122 H (74-99) mg/dL Calcium 9.4 (8.4-10.2) mg/dL Total Bilirubin 3.1 H (0.2-1.3) mg/dL AST 114 H (14-36) U/L ALT 145 H (9-52) U/L Alkaline Phosphatase 559 H (38-126) U/L Total Protein 7.0 (6.3-8.2) g/dL Albumin 3.6 (3.5-5.0) g/dL Amylase 37 (30-110) U/L Lipase 68 (23-300) U/L - Radiology Data Radiology results: report reviewed (CT abdomen/pelvis with IV contrast shows a stent in the common bile duct, dilation of the biliary tree and gallbladder, and suspicion for stent or distal common bile duct obstruction) Disposition Clinical Impression: Abdominal pain Narrative: Suspected biliary obstruction Disposition: OTHER INSTITUTION NOT DEFINED Condition: Stable Is patient prescribed a controlled substance at d/c from ED?: No Referrals: Robin Fonseca DO [Primary Care Provider] - 1-2 days Time of Disposition: 16:44 - Out of Hospital Transfer - Req. Specs Out of Hospital Transfer - Requested Specifics: Other Emergency Center ([facility] emergency department)
[2019-01-09 13:00] LABS: Basophils % (A) 1 %; Eosinophils # (A) 0.2 k/uL (0-0.7); Eosinophils % (A) 3 %; HCT 39.2 % (34.0-46.0); HGB 12.7 gm/dL (11.4-16.0); Lymphocytes # (A) 1.3 k/uL (1.0-4.8); Lymphocytes % (A) 21 %; MCHC 32.4 g/dL (31.0-37.0); MCV 98.7 fL (80.0-100.0); Mean Platelet Volume 7.4; Monocytes # (A) 0.5 k/uL (0-1.0); Monocytes % (A) 8 %; Neutrophils # (A) 3.9 k/uL (1.3-7.7); Neutrophils % (A) 64 %; Platelet Count 299 k/uL (150-450); RBC 3.97 m/uL (3.80-5.40); RDW 14.4 % (11.5-15.5); WBC 6.1 k/uL (3.8-10.6)
[2019-01-09 13:10] LABS: ALT 145 U/L (9-52); AST 114 U/L (14-36); African American GFR (CKD) >90 (>60 ml/min/1.73 sqM); Albumin 3.6 g/dL (3.5-5.0); Alkaline Phosphatase 559 U/L (38-126); Amylase 37 U/L (30-110); Anion Gap 9 mmol/L; Blood Urea Nitrogen 13 mg/dL (7-17); Calcium 9.4 mg/dL (8.4-10.2); Carbon Dioxide 25 mmol/L (22-30); Chloride 105 mmol/L (98-107); Glucose 122 mg/dL (74-99); Potassium 4.1 mmol/L (3.5-5.1); Sodium 139 mmol/L (137-145); Total Bilirubin 3.1 mg/dL (0.2-1.3)
[2019-01-09 14:21] VITALS: RESP 16
--- NOTE | 2019-01-09 14:29 | CT ---
EXAMINATION TYPE: CT abdomen pelvis w con DATE OF EXAM: 01/09/2019 COMPARISON: 11/15/2018 HISTORY: Upper Abdominal pain with history of bile duct cancer. CT DLP: 707.2 mGycm Automated exposure control for dose reduction was used. TECHNIQUE: Helical acquisition of images was performed from the lung bases through the pelvis. CONTRAST: Performed without Oral Contrast and with IV Contrast, patient injected with 100 mL of Isovue 300. FINDINGS: There is some mild atelectasis at the lung bases. Heart is slightly enlarged. There is no pericardial effusion. There is stent in the common bile duct. The gallbladder is dilated and measures 6 cm in di ameter. Spleen is normal. There is no sign of a pancreatic mass. The stent in the common bile duct ex tends to the distal common bile duct but not definitely into the duodenum. There is hypodensity at th e camille hepatis in the left lobe probably due to confluence of dilated bile ducts. There is no adrenal mass. There are a few small cortical cysts on both kidneys that measure less than 1 cm. There is no hydronephrosis. There is no evidence of a solid renal mass. Abdominal aorta is ath eromatous. There is no retroperitoneal adenopathy. There is thoracolumbar levoscoliosis. Urinary blad pool is intact. There is no inguinal hernia. There is no ascites or free air. I see no sign of a bowel obstruction. There is no inguinal hernia. There is no evidence of focal bone destruction. Bony pelvi s appears intact. IMPRESSION: THERE IS A STENT IN THE COMMON BILE DUCT. THERE IS DILATION OF THE BILIARY TREE AND THE GALLBLADDER. OBSTRUCTION OF THE STENT OR THE DISTAL COMMON BILE DUCT IS SUSPECTED. DILATED GALLBLADDER IS A CHANGE COMPARED TO LAST EXAM. DILATED BILIARY TREE APPEARS SLIGHTLY WORSE THAN LAST EXAM. POORLY MARGINATED HYPODENSE AREA AT THE CAMILLE HEPATIS COULD RELATE TO CONFLUENCE OF DILATED DUCTS AND IS UNCHANGED. Tumor at the camille hepatis is possible. There is some atelectasis at the lung bases slightly worse than last exam.
[2019-01-09 17:34] VITALS: BP 121/76; PULSE 76; TEMP 98
== END 2019-01-09 17:40 | disposition short-term general hospital (02) ==
LOC: EC 11:37
DX: R10.10 Upper abdominal pain, unspecified (principal); R79.89 Other specified abnormal findings of blood chemistry; C22.1 Intrahepatic bile duct carcinoma; R11.0 Nausea; M54.9 Dorsalgia, unspecified; K21.9 Gastro-esophageal reflux disease without esophagitis; Z88.1 Allergy status to other antibiotic agents; Z88.8 Allergy status to other drugs, medicaments and biological substances; Z91.048 Other nonmedicinal substance allergy status; Z79.899 Other long term (current) drug therapy; Z90.49 Acquired absence of other specified parts of digestive tract; Z96.89 Presence of other specified functional implants
CPT/HCPCS: 36415; 80053; 82150; 83690; 85025; 74177; 99285; 96374; 96375; 96376; 96361; J2405; J1170; Q9967

== ENCOUNTER → 2019-01-31 | Outpatient (CLI) | payer MEDICARE ==
[2019-01-31 08:18] LABS: Basophils # (A) 0.2 k/uL (0-0.2); Basophils % (A) 2 %; Eosinophils # (A) 0.4 k/uL (0-0.7); Eosinophils % (A) 6 %; HCT 41.5 % (34.0-46.0); HGB 12.7 gm/dL (11.4-16.0); Lymphocytes # (A) 1.7 k/uL (1.0-4.8); Lymphocytes % (A) 25 %; MCH 30.1 pg (25.0-35.0); MCHC 30.6 g/dL (31.0-37.0); MCV 98.2 fL (80.0-100.0); Mean Platelet Volume 8.5; Monocytes # (A) 0.6 k/uL (0-1.0); Monocytes % (A) 9 %; Neutrophils # (A) 3.7 k/uL (1.3-7.7); Neutrophils % (A) 55 %; Platelet Count 309 k/uL (150-450); RBC 4.22 m/uL (3.80-5.40); RDW 13.9 % (11.5-15.5); WBC 6.8 k/uL (3.8-10.6)
[2019-01-31 11:31] LABS: African American GFR (CKD) 95.5 (60.0-200.0); Albumin 3.9 g/dL (3.80-4.90); Albumin/Globulin Ratio 1.56 (1.60-3.17); Anion Gap 9.2 mmol/L (4.00-12.00); BUN/Creat Ratio 22.86 Ratio (12.00-20.00); Calcium 9.6 mg/dL (8.7-10.3); Carbon Dioxide 28.8 mmol/L (21.6-31.8); Globulin 2.5 g/dL (1.6-3.3); Non-African American GFR(CKD) 82.4 (60.0-200.0); Potassium 4.9 mmol/L (3.5-5.5); Total Bilirubin 1.6 mg/dL (0.2-1.2); Total Protein 6.4 g/dL (6.2-8.2)
== END | disposition home or self-care (01) ==
LOC: LABWHC1 07:35
PROVIDERS: ATTEND Surgery
DX: C22.1 Intrahepatic bile duct carcinoma (principal)
CPT/HCPCS: 36415; 80053; 85025

== ENCOUNTER → 2019-05-13 | Outpatient (CLI) | payer MEDICARE ==
[2019-05-13 09:45] LABS: INR 0.9 (<1.2); Prothrombin Time 9.9 sec (9.0-12.0)
[2019-05-13 10:20] LABS: HGB 13.1 gm/dL (11.4-16.0); MCV 96.9 fL (80.0-100.0); Mean Platelet Volume 9.2; Platelet Count 213 k/uL (150-450); RBC 4.23 m/uL (3.80-5.40); RDW 14.4 % (11.5-15.5); WBC 4.2 k/uL (3.8-10.6)
[2019-05-13 11:11] LABS: Eosinophils # (M) 0.17 k/uL (0-0.7); Lymphocytes # (M) 0.92 k/uL (1.0-4.8); Monocytes # (M) 0.46 k/uL (0-1.0); Neutrophils # (M) 2.65 k/uL (1.3-7.7); Neutrophils % (M) 63 %; Nucleated Red Blood Cells 0 /100 WBC (0-0); Poikilocytosis (M) Present; Total Cells Counted 100
[2019-05-13 16:30] LABS: African American GFR (CKD) 80.7 (60.0-200.0); Albumin 4.1 g/dL (3.80-4.90); Albumin/Globulin Ratio 1.64 (1.60-3.17); Anion Gap 11.5 mmol/L (4.00-12.00); Calcium 9.3 mg/dL (8.7-10.3); Carbon Dioxide 24.5 mmol/L (21.6-31.8); Globulin 2.5 g/dL (1.6-3.3); Non-African American GFR(CKD) 69.6 (60.0-200.0); Potassium 4.3 mmol/L (3.5-5.5); Total Bilirubin 0.7 mg/dL (0.3-1.2); Total Protein 6.6 g/dL (6.2-8.2)
== END | disposition home or self-care (01) ==
LOC: LABWHC1 08:42
PROVIDERS: ATTEND Nurse Practitioner
DX: C24.0 Malignant neoplasm of extrahepatic bile duct (principal)
CPT/HCPCS: 36415; 80053; 85025; 85610; 86301

== ENCOUNTER 2019-07-20 01:02 | Inpatient (IN) | payer MEDICARE ==
[2019-07-20] MEDS ORDERED: SODIUM CHLORIDE 0.9% 500 ML 500 ML IV STA (01:19)
--- NOTE | 2019-07-20 01:22 | ED ---
GI Bleed HPI - General Source: patient, RN notes reviewed Mode of arrival: ambulatory Limitations: no limitations <Zackery Cano - Last Filed: 07/20/19 01:21> <Kyle Courtney - Last Filed: 07/24/19 19:28> - General Chief complaint: GI Bleed Stated complaint: GI bleed Time Seen by Provider: 07/20/19 01:09 - History of Present Illness Initial comments: This an 79-year-old female presents emergency Department chief complaint of rectal bleeding. Patient states started over the day or so. Patient states that she's had a large amount of bright red blood per rectum with almost. She states it felt the toilet. She does admit that she is on Eliquis for history of A. fib. 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 Patient has seen by [facility] oncology. Patient does have a stent in place. Patient denies any current nausea vomiting she has ongoing chills which is normal for her. No recent fever no chest pain or shortness of breath. Patient has no dysuria no hematuria (Zackery Cano) - Related Data Home Medications Medication Instructions Recorded Confirmed Pantoprazole Sodium [Protonix] 40 mg PO DAILY 11/15/18 07/20/19 Metoprolol Tartrate [Lopressor] 12.5 mg PO BID 01/09/19 07/20/19 Acetaminophen [Tylenol] 500 mg PO Q8H PRN 07/20/19 07/20/19 Multivitamins, Thera [Multivitamin 1 tab PO DAILY 07/20/19 07/20/19 (formulary)] Polyethylene Glycol 3350 [Miralax] 17 gm PO DAILY PRN 07/20/19 07/20/19 Previous Rx's Medication Instructions Recorded Apixaban [Eliquis] 5 mg PO BID #60 tab 10/02/16 Amoxicillin/Potassium Clav 1 tab PO Q12HR #14 tab 07/23/19 [Augmentin 875-125 Tablet] Dicyclomine [Bentyl] 10 mg PO QID PRN #20 cap 07/23/19 metroNIDAZOLE [Flagyl] 250 mg PO Q8H #21 tab 07/23/19 Allergies Allergy/AdvReac Type Severity Reaction Status Date / Time adhesive tape Allergy Unknown Verified 07/20/19 08:21 cefuroxime Allergy Itching Verified 07/20/19 08:21 levofloxacin [From Levaquin] Allergy Rash/Hives Verified 07/20/19 08:21 Additives in inhalers AdvReac Rapid Uncoded 07/20/19 01:08 Heart Rate Review of Systems ROS Other: All systems not noted in ROS Statement are negative. <Zackery Cano - Last Filed: 07/20/19 01:21> ROS Other: All systems not noted in ROS Statement are negative. <Kyle Courtney - Last Filed: 07/24/19 19:28> ROS Statement: Those systems with pertinent positive or pertinent negative responses have been documented in the HPI. Past Medical History Past Medical History: Atrial Fibrillation, Cancer, GERD/Reflux, Osteoarthritis (OA) Additional Past Medical History / Comment(s): Possible hepatitis B years ago, UTIs, cardiac murmur, scoliosis, DJD, cervical pain d/t position, ocular migraines, occasional numbness/tingling to toes bilateral feet, hiatal hernia, rectal prolapse, bile duct carncinoma History of Any Multi-Drug Resistant Organisms: None Reported Past Surgical History: Appendectomy, Breast Surgery, Hernia Repair, Hysterectomy Additional Past Surgical History / Comment(s): Umbilical hernia repair, EGD, colonoscopy, bilateral cataract removals/lens implants, L breast benign biopsy, ercp Past Anesthesia/Blood Transfusion Reactions: Family History of Problems w/ Anesthesia, Postoperative Nausea & Vomiting (PONV) Additional Past Anesthesia/Blood Transfusion Reaction / Comment(s): Pt states her mother's heart stopped during gallbladder surgery. Past Psychological History: No Psychological Hx Reported Smoking Status: Never smoker Past Alcohol Use History: None Reported Past Drug Use History: None Reported - Past Family History Mother Family Medical History: Coronary Artery Disease (CAD), CVA/TIA Additional Family Medical History / Comment(s): Mother had cardiac valve disease. She from a postop CVA. Father Additional Family Medical History / Comment(s): Father had myasthenia gravis. <Zackery Cano - Last Filed: 07/20/19 01:21> General Exam Limitations: no limitations General appearance: alert, in no apparent distress Head exam: Present: atraumatic, normocephalic, normal inspection Eye exam: Present: normal appearance, PERRL, EOMI. Absent: scleral icterus, conjunctival injection, periorbital swelling Neck exam: Present: normal inspection, full ROM. Absent: tenderness, meningismus, lymphadenopathy Respiratory exam: Present: normal lung sounds bilaterally. Absent: respiratory distress, wheezes, rales, rhonchi, stridor Cardiovascular Exam: Present: normal rhythm, tachycardia, normal heart sounds. Absent: systolic murmur, diastolic murmur, rubs, gallop, clicks GI/Abdominal exam: Present: soft, tenderness (Moderate lower abdominal tenderness), normal bowel sounds. Absent: distended, guarding, rebound, rigid Back exam: Absent: CVA tenderness (R), CVA tenderness (L) Neurological exam: Present: alert, oriented X3 Skin exam: Present: warm, dry, intact, normal color. Absent: rash <Zackery Cano - Last Filed: 07/20/19 01:21> Course Vital Signs 07/20/19 07/20/19 01:03 03:33 Temperature 98.1 F 98.5 F Pulse Rate 108 H 83 Respiratory 16 16 Rate Blood Pressure 139/74 140/59 O2 Sat by Pulse 100 97 Oximetry Medical Decision Making - Lab Data Result diagrams: 07/22/19 00:57 07/22/19 05:41 <Kyle Courtney - Last Filed: 07/24/19 19:28> - Medical Decision Making I saw this patient in conjunction with the physician social research assistant. I performed independent history and physical exam. Agree with case management. (Kyle Courtney) - Lab Data Lab Results 07/20/19 07/20/19 07/20/19 Range/Units 01:18 01:18 01:18 WBC 8.5 (3.8-10.6) k/uL RBC 4.39 (3.80-5.40) m/uL Hgb 13.2 (11.4-16.0) gm/dL Hct 42.2 (34.0-46.0) % MCV 96.3 (80.0-100.0) fL MCH 30.1 (25.0-35.0) pg MCHC 31.3 (31.0-37.0) g/dL RDW 13.7 (11.5-15.5) % Plt Count 212 (150-450) k/uL Neutrophils % 74 % Lymphocytes % 12 % Monocytes % 8 % Eosinophils % 2 % Basophils % 0 % Neutrophils # 6.3 (1.3-7.7) k/uL Lymphocytes # 1.0 (1.0-4.8) k/uL Monocytes # 0.6 (0-1.0) k/uL Eosinophils # 0.2 (0-0.7) k/uL Basophils # 0.0 (0-0.2) k/uL PT 10.5 (9.0-12.0) sec INR 1.0 (<1.2) APTT 25.1 (22.0-30.0) sec Sodium (137-145) mmol/L Potassium (3.5-5.1) mmol/L Chloride (98-107) mmol/L Carbon Dioxide (22-30) mmol/L Anion Gap mmol/L BUN (7-17) mg/dL Creatinine (0.52-1.04) mg/dL Est GFR (CKD-EPI)AfAm (>60 ml/min/1.73 sqM) Est GFR (CKD-EPI)NonAf (>60 ml/min/1.73 sqM) Glucose (74-99) mg/dL Plasma Lactic Acid Santo (0.7-2.0) mmol/L Calcium (8.4-10.2) mg/dL Magnesium (1.6-2.3) mg/dL Total Bilirubin (0.2-1.3) mg/dL AST (14-36) U/L ALT (4-34) U/L Alkaline Phosphatase (38-126) U/L Troponin I (0.000-0.034) ng/mL Total Protein (6.3-8.2) g/dL Albumin (3.5-5.0) g/dL Lipase (23-300) U/L Stool Occult Blood Positive H (Negative) 07/20/19 07/20/19 07/20/19 Range/Units 01:18 01:18 01:18 WBC (3.8-10.6) k/uL RBC (3.80-5.40) m/uL Hgb (11.4-16.0) gm/dL Hct (34.0-46.0) % MCV (80.0-100.0) fL MCH (25.0-35.0) pg MCHC (31.0-37.0) g/dL RDW (11.5-15.5) % Plt Count (150-450) k/uL Neutrophils % % Lymphocytes % % Monocytes % % Eosinophils % % Basophils % % Neutrophils # (1.3-7.7) k/uL Lymphocytes # (1.0-4.8) k/uL Monocytes # (0-1.0) k/uL Eosinophils # (0-0.7) k/uL Basophils # (0-0.2) k/uL PT (9.0-12.0) sec INR (<1.2) APTT (22.0-30.0) sec Sodium 137 (137-145) mmol/L Potassium 3.9 (3.5-5.1) mmol/L Chloride 105 (98-107) mmol/L Carbon Dioxide 25 (22-30) mmol/L Anion Gap 7 mmol/L BUN 13 (7-17) mg/dL Creatinine 0.65 (0.52-1.04) mg/dL Est GFR (CKD-EPI)AfAm >90 (>60 ml/min/1.73 sqM) Est GFR (CKD-EPI)NonAf 84 (>60 ml/min/1.73 sqM) Glucose 127 H (74-99) mg/dL Plasma Lactic Acid Santo 1.0 (0.7-2.0) mmol/L Calcium 9.1 (8.4-10.2) mg/dL Magnesium 1.8 (1.6-2.3) mg/dL Total Bilirubin 0.6 (0.2-1.3) mg/dL AST 60 H (14-36) U/L ALT 59 H (4-34) U/L Alkaline Phosphatase 323 H (38-126) U/L Troponin I <0.012 (0.000-0.034) ng/mL Total Protein 6.7 (6.3-8.2) g/dL Albumin 3.7 (3.5-5.0) g/dL Lipase 83 (23-300) U/L Stool Occult Blood (Negative) Disposition <Zackery Cano - Last Filed: 07/20/19 01:21> <Kyle Courtney - Last Filed: 07/24/19 19:28> Clinical Impression: Lower gastrointestinal hemorrhage, Colitis, Abdominal pain Disposition: ADMITTED IP TO THIS HOSP Condition: Stable
[2019-07-20 01:41] LABS: Basophils % (A) 0 %; Eosinophils # (A) 0.2 k/uL (0-0.7); Eosinophils % (A) 2 %; HCT 42.2 % (34.0-46.0); HGB 13.2 gm/dL (11.4-16.0); Lymphocytes % (A) 12 %; MCH 30.1 pg (25.0-35.0); MCHC 31.3 g/dL (31.0-37.0); MCV 96.3 fL (80.0-100.0); Mean Platelet Volume 8.4; Monocytes # (A) 0.6 k/uL (0-1.0); Monocytes % (A) 8 %; Neutrophils # (A) 6.3 k/uL (1.3-7.7); Neutrophils % (A) 74 %; Platelet Count 212 k/uL (150-450); RBC 4.39 m/uL (3.80-5.40); RDW 13.7 % (11.5-15.5); WBC 8.5 k/uL (3.8-10.6)
[2019-07-20 01:45] LABS: Prothrombin Time 10.5 sec (9.0-12.0)
[2019-07-20 01:46] LABS: ALT 59 U/L (4-34); AST 60 U/L (14-36); African American GFR (CKD) >90 (>60 ml/min/1.73 sqM); Albumin 3.7 g/dL (3.5-5.0); Alkaline Phosphatase 323 U/L (38-126); Anion Gap 7 mmol/L; Blood Urea Nitrogen 13 mg/dL (7-17); Calcium 9.1 mg/dL (8.4-10.2); Carbon Dioxide 25 mmol/L (22-30); Chloride 105 mmol/L (98-107); Glucose 127 mg/dL (74-99); Magnesium 1.8 mg/dL (1.6-2.3); Non-African American GFR(CKD) 84 (>60 ml/min/1.73 sqM); Partial Thromboplastin Time 25.1 sec (22.0-30.0); Potassium 3.9 mmol/L (3.5-5.1); Sodium 137 mmol/L (137-145); Total Bilirubin 0.6 mg/dL (0.2-1.3); Total Protein 6.7 g/dL (6.3-8.2)
--- NOTE | 2019-07-20 02:28 | CT ---
EXAMINATION TYPE: CT abdomen pelvis w con DATE OF EXAM: 07/20/2019 COMPARISON: 01/09/2019 HISTORY: gi bleed and abdominal pain. CT DLP: 600.2 mGycm Automated exposure control for dose reduction was used. CONTRAST: Performed with IV Contrast, patient injected with 100mL mL of Isovue 300. There is mild scarring and subsegmental atelectasis at the lung bases. Heart appears slightly enlarge d. There is no pericardial effusion. There is no pleural effusion. There is biliary stent. There is mild dilation of the biliary tree. There is markedly dilated gallbla dder that measures 5.8 cm in diameter. Spleen appears normal. There is no pancreatic mass. There is no adrenal mass. Kidneys show satisfactory contrast opacification. There is no hydronephrosi s. Ureters are not dilated. There is no retroperitoneal adenopathy. Bladder distends smoothly. There are phleboliths in the pelvis. There is hysterectomy. There is no inguinal hernia. There is no free air. There is no ascites. There is no sign of a bowel obstruction. There is wall thickening of the splenic flexure of the colon extending into the descending colon. The cecum appears normal. Appendix is not seen. There is no sign of thickened appendix. The lumbar spine is intact. There is mild lumbar levoscoliosis. The bony pelvis is intact. The hip joints are intact. IMPRESSION: Dilated biliary tree and markedly dilated gallbladder is similar to old exam and suggestive of biliar y stent malfunction. There is diffuse wall thickening of the descending colon and splenic flexure of the colon that is a c hange compared to old exam and suggestive of nonspecific colitis.
[2019-07-20] MEDS ORDERED: NALOXONE 0.4 MG/ML 1 ML VIAL IV PRN (02:53)
[2019-07-20] MEDS ORDERED: MAG HYDROX/AL HYDROX/SIMETH 30 ML CUP PO PRN (02:53)
[2019-07-20] MEDS ORDERED: ACETAMINOPHEN TAB 325 MG TAB PO PRN (02:53)
[2019-07-20] MEDS: SODIUM CHLORIDE 0.9% 1,000 ML IV SCH ×3 (03:36→23:20)
[2019-07-20] MEDS: metroNIDAZOLE-NS PMX 500 MG in SALINE 1 100ML.BAG IVPB SCH ×3 (03:52→20:05)
[2019-07-20] MEDS: MORPHINE SULFATE 4 MG/ML SYRINGE IV PRN (05:53)
[2019-07-20] MEDS: METOPROLOL TARTRATE 12.5 MG TAB PO SCH ×2 (07:54→20:40)
[2019-07-20] MEDS: PANTOPRAZOLE 40 MG TABLET PO SCH (07:55)
--- NOTE | 2019-07-20 08:32 | P.HPIM ---
History of Present Illness This is a pleasant 79 years old female with past medical history of atrial fibrillation on Eliquis, osteoarthritis, GERD, possible hepatitis B, cervical pain, occasional numbness in bilateral feet hiatal hernia, rectal prolapse, bile duct carcinoma. Presents because of abdominal pain and diarrhea. Patient started having abdominal pain for about one week within THE tendon progressively worse, and the left lower quadrant, non-radiating, felt like achy/colicky, about 8/10 in severity on the presentation associated with nausea but no vomiting. Patient has also diarrhea for example yesterday she had 11-12 bouts of bowel movements, they were loose and watery with little blood and that she had 1 large bloody bowel movement associated with lightheadedness and decided to come to the hospital Patient denies fever or chills, no coughing, no chest pain or dyspnea. She's the patient's of Dr. Fonseca, she follows up at [facility] for her radiotherapy to her bile duct cancer, her stents was placed also at [facility]. She follows up with Dr. Potter for her A. fib. She denies smoking alcohol or illicit drugs Vitals are stable. Labs include CBC, BMP and INR were unremarkable. Hemoglobin is 13.2, occult blood in the stool is positive. Liver enzymes slightly elevated AST and ALT at 60/59 respectively. Bilirubin is normal at 0.6 CT of the abdomen and pelvis showing biliary stent, markedly dilated gallbladder, markedly dilated biliary tree. Diffuse thickening of the descending colon suspicious for colitis In the emergency room he was given 500 mL of normal saline and started on Flagyl and ceftriaxone and and normal saline 100 mL per hour and Protonix and Pepcid . C. diff test was negative GI service was consulted Coronavirus test is pending Review of Systems CONSTITUTIONAL: No fever, no malaise, no fatigue. HEENT: No recent visual problems or hearing problems. Denied any sore throat. CARDIOVASCULAR: No orthopnea, PND, no palpitations, no syncope. PULMONARY: No shortness of breath, no cough, no hemoptysis. GASTROINTESTINAL: No diarrhea, no nausea, no vomiting, no abdominal pain. Normoactive bowel sounds. NEUROLOGICAL: No headaches, no weakness, no numbness. HEMATOLOGICAL: Denies any bleeding or petechiae. GENITOURINARY: Denies any burning micturition, frequency, or urgency. MUSCULOSKELETAL/RHEUMATOLOGICAL: Denies any joint pain, swelling, or any muscle pain. ENDOCRINE: Denies any polyuria or polydipsia. Past Medical History Past Medical History: Atrial Fibrillation, Cancer, GERD/Reflux, Osteoarthritis (OA) Additional Past Medical History / Comment(s): Possible hepatitis B years ago, UTIs, cardiac murmur, scoliosis, DJD, cervical pain d/t position, ocular migr aines, occasional numbness/tingling to toes bilateral feet, hiatal hernia, rectal prolapse, bile duct carncinoma History of Any Multi-Drug Resistant Organisms: None Reported Past Surgical History: Appendectomy, Breast Surgery, Hernia Repair, Hysterectomy Additional Past Surgical History / Comment(s): Umbilical hernia repair, EGD, colonoscopy, bilateral cataract removals/lens implants, L breast benign biopsy, ercp Past Anesthesia/Blood Transfusion Reactions: Family History of Problems w/ Anesthesia, Postoperative Nausea & Vomiting (PONV) Additional Past Anesthesia/Blood Transfusion Reaction / Comment(s): Pt states her mother's heart stopped during gallbladder surgery. Past Psychological History: No Psychological Hx Reported Additional Psychological History / Comment(s): Pt resides alone. She is indpendent. Smoking Status: Never smoker Past Alcohol Use History: None Reported Past Drug Use History: None Reported - Past Family History Mother Family Medical History: Coronary Artery Disease (CAD), CVA/TIA Additional Family Medical History / Comment(s): Mother had cardiac valve disease. She from a postop CVA. Father Additional Family Medical History / Comment(s): Father had myasthenia gravis. Medications and Allergies Home Medications Medication Instructions Recorded Confirmed Type Apixaban [Eliquis] 5 mg PO BID #60 tab 10/02/16 01/09/19 Rx Pantoprazole Sodium [Protonix] 40 mg PO DAILY 11/15/18 01/09/19 History Metoprolol Tartrate [Lopressor] 12.5 mg PO BID 01/09/19 01/09/19 History Acetaminophen [Tylenol] 500 mg PO Q8H PRN 07/20/19 07/20/19 History Docusate [Colace] 100 mg PO BID PRN 07/20/19 07/20/19 History Multivitamins, Thera [Multivitamin 1 tab PO DAILY 07/20/19 07/20/19 History (formulary)] Polyethylene Glycol 3350 [Miralax] 17 gm PO DAILY PRN 07/20/19 07/20/19 History Allergies Allergy/AdvReac Type Severity Reaction Status Date / Time adhesive tape Allergy Unknown Verified 07/20/19 08:21 cefuroxime Allergy Itching Verified 07/20/19 08:21 levofloxacin [From Levaquin] Allergy Rash/Hives Verified 07/20/19 08:21 Additives in inhalers AdvReac Rapid Uncoded 07/20/19 01:08 Heart Rate Physical Exam Vitals: Vital Signs Temp Pulse Pulse Resp BP BP Pulse Ox 07/20/19 04:43 98 F 83 18 136/66 96 07/20/19 03:33 98.5 F 83 16 140/59 97 07/20/19 01:03 98.1 F 108 H 16 139/74 100 Intake and Output 07/19/19 07/20/19 07/20/19 22:59 06:59 14:59 Intake Total 540 Balance 540 Intake: Intake, IV Titration 300 Amount Sodium Chloride 0.9% 1, 200 000 ml @ 100 mls/hr IV . Q10H [facility] Rx#:[id number] metroNIDAZOLE-NS PMX 500 100 mg In Saline 1 100ml.bag @ 100 mls/hr IVPB Q8H [facility] Rx#:[id number] Oral 240 Other: Weight 61.507 kg GENERAL: The patient is alert and oriented x3, not in any acute distress. Well developed, well nourished. HEENT: Pupils are round and equally reacting to light. EOMI. No scleral icterus. No conjunctival pallor. Normocephalic, atraumatic. No pharyngeal erythema. No thyromegaly. CARDIOVASCULAR: S1 and S2 present. No murmurs, rubs, or gallops. PULMONARY: Chest is clear to auscultation, no wheezing or crackles. -ABDOMEN: Soft, left lower quadrant tenderness, no guarding or rebound tenderness, nondistended, normoactive bowel sounds. No palpable organomegaly. MUSCULOSKELETAL: No joint swelling or deformity. EXTREMITIES: No cyanosis, clubbing, or pedal edema. NEUROLOGICAL: Gross neurological examination did not reveal any focal deficits. SKIN: No rashes. No petechiae Results CBC & Chem 7: 07/20/19 01:18 07/20/19 01:18 Labs: Abnormal Lab Results - Last 24 Hours (Table) 07/20/19 07/20/19 Range/Units 01:18 01:18 Glucose 127 H (74-99) mg/dL AST 60 H (14-36) U/L ALT 59 H (4-34) U/L Alkaline Phosphatase 323 H (38-126) U/L Stool Occult Blood Positive H (Negative) Thrombosis Risk Factor Assmnt - Choose All That Apply Other Risk Factors: Yes Each Risk Factor Represents 2 Points: Malignancy Each Risk Factor Represents 3 Points: Age 75 years or older Thrombosis Risk Factor Assessment Total Risk Factor Score: 5 Thrombosis Risk Factor Assessment Level: High Risk Assessment and Plan Assessment: descending colitis, with positive occult blood in stool and rectal blood right per rectum Asymptomatic Markedly dilated gallbladder with mildly dilated biliary tree and mildly elevated liver enzymes Atrial fibrillation on Eliquis GERD History of bile duct carcinoma, status post biliary stent, status post radiotherapy on March of this year GERD history hepatitis B Chronic cervical pain Occasional numbness in bilateral feet Hiatal hernia History of rectal prolapse Plan: This is a pleasant 49 years old female who presents with possible descending colitis and dilated gallbladder. Occult blood was positive. GI service consult. Continue with Flagyl and add cephalosporin. Sent stool for C. diff and culture and sensitivity. Continue with Protonix and DC Pepcid. Continue with IV hydration. Pain management. Check liver ultrasound. Hold Eliquis and a few of blood per rectum, Eliquis can be restarted later if his hemoglobin is more stable Labs and medication were reviewed.. Continue same treatment. Continue with symptomatic treatment. Resume home medication. Monitor lytes and vitals. DVT and GI prophylaxis. Further recommendations of the clinical course of the patient DVT prophylaxis: No anticoagulation in view of possible GI bleed. Mechanical GI Prophylaxis: Ppi
[2019-07-20] MEDS ORDERED: FAMOTIDINE 20 MG TAB PO SCH (09:00)
[2019-07-20] MEDS ORDERED: DOCUSATE 100 MG CAP PO PRN (09:00)
[2019-07-20] MEDS ORDERED: HEPARIN SODIUM,PORCINE 5,000 UNIT/ML 1 ML VIAL SQ SCH (09:00)
[2019-07-20] MEDS: CEFDINIR 300 MG CAP PO SCH ×2 (10:02→20:40)
--- NOTE | 2019-07-20 13:59 | US ---
EXAMINATION TYPE: US liver DATE OF EXAM: 07/20/2019 COMPARISON: CT dated 07/20/2019 CLINICAL HISTORY: Dilated gallbladder. history of bile duct carcinoma, biliary stent 12/25 EXAM MEASUREMENTS: Liver Length: 14.1 cm Gallbladder Wall: 0.2 cm Right Kidney: 9.4 x 5.4 x 4.0 cm Technical limitations due to large amount of overlying bowel content Pancreas: Obscured by bowel gas Liver: best seen intercostally, left lobe is atrophic, there is some biliary ductal dilatation prese nt. Biliary stent is noted as on CT. Gallbladder: hydropic as noted on patient's CT Evidence for sonographic Schmitz's sign: no CBD: limited evaluation, biliary stenting visualized Right Kidney: no evidence of hydronephrosis, cortical medullary differentiation is maintained There is no ascites. IMPRESSION: Exam is limited. Hydropic gallbladder, biliary stent noted as on patient's CT, there is b iliary dilatation, there may be a biliary stent malfunction.
--- NOTE | 2019-07-20 17:33 | CONS ---
CONSULTATION DATE OF SERVICE: 07/20/2019. REASON FOR CONSULTATION: Abdominal pain, diarrhea and rectal bleeding. HISTORY OF PRESENT ILLNESS: Patient is an 79-year-old pleasant white female who was admitted to the hospital yesterday when she presented to the emergency room for chronic abdominal pain for the last 2 weeks' duration. However, yesterday the pain progressively got worse, more in the left upper quadrant and left lower quadrant area associated with severe diarrhea. She had 3 loose watery bowel movements followed by one bloody bowel movement and got extremely weak and came to the emergency room and by that time, she was somewhat lightheaded and dizzy. In the ER, she had a CT of the abdomen and pelvis done that showed thickening of the descending colon and distal transverse colon consistent with colitis. The patient was admitted the hospital and presently on broad-spectrum antibiotics. This morning, her abdominal pain is better. She did not have any further episodes of bleeding. In fact she had no bowel movements. 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 She underwent ERCP with metal stent placement following which she underwent radiation therapy that ended in March of this year. She was scheduled for an MRCP in May, but because of the pandemic, that has been postponed. She denies any fever, chills, night sweats. She never had these symptoms in the past. Her last colonoscopy was approximately 10 years ago. PAST MEDICAL HISTORY: Significant for cholangiocarcinoma diagnosed in November of 2018 and followed at the [facility], history of atrial fibrillation, gastroesophageal reflux disease, degenerative joint disease, rectal prolapse. PAST SURGICAL HISTORY: Hernia repair, breast surgery, appendectomy, hysterectomy, ERCP with metal stent placement, EGD and colonoscopy in the past, umbilical hernia repair and bilateral cataract surgery. MEDICATIONS: At home include Eliquis, Protonix, Lopressor, Tylenol, Colace, MiraLAX. ALLERGIES: To CEFUROXIME, LEVAQUIN, and INHALERS. FAMILY HISTORY: Mother had coronary artery disease, father had myasthenia gravis. SOCIAL HISTORY: No smoking or alcohol use. REVIEW OF SYSTEMS: CARDIOPULMONARY: No chest pain or shortness of breath. GENITOURINARY: No dysuria or hematuria. MUSCULOSKELETAL: Some back pain. NEUROLOGY: Unremarkable. PSYCHIATRIC: Unremarkable. ENT/VISION: Unremarkable. CONSTITUTIONAL: She has lost about 10 pounds. No fever, chills, night sweats. ENT:VISION: Unremarkable. ENDOCRINE: Unremarkable. PHYSICAL EXAMINATION: She appears comfortable, in no apparent distress. Vital signs are stable. Blood pressure is 136/66, pulse rate 80, temperature 98. HEENT: Examination unremarkable, conjunctivae are pink, sclerae nonicteric, oral cavity no lesions. NECK: No JVD or lymph node enlargement. CHEST: Clear to auscultation. HEART: Regular rate and rhythm. ABDOMEN: Soft, there was tenderness in the left lower quadrant area, mild tenderness. The rest of the abdomen was benign. Bowel sounds are positive. No organomegaly. EXTREMITIES: No pedal edema. SKIN: No rashes. NEUROLOGIC: Alert and oriented x3. No focal deficits. LABS: WBC 8.5, hemoglobin 13.2, platelets normal. Basic metabolic panel is within normal limits. Stool for occult blood was positive. AST and ALT 60 and 59 respectively. Alkaline phosphatase 323, bilirubin is normal. CT of the abdomen and pelvis done in the emergency room yesterday did show thickening of the colon in the descending colon to the splenic flexure consistent with acute colitis. There was a metal stent noted. There was a biliary stent noted. There was mild dilation of the biliary tree and marked dilation of the gallbladder. IMPRESSION: 1. This is a lady who presents with acute onset of severe lower abdominal pain followed by diarrhea and bloody bowel movements, all consistent with acute ischemic colitis. Possibility of infectious colitis cannot be excluded. CT of the abdomen showed thickening of the descending colon up to the splenic flexure. Presently on empiric antibiotics. Clinically she is doing much better. No further episodes of bleeding. 2. History of cholangiocarcinoma diagnosed in November of 2018, followed at [facility], status post ERCP with a metal stent placement and underwent radiation therapy in March of this year. 3. Atrial fibrillation, on Eliquis which is currently on hold. RECOMMENDATIONS: 1. Continue with empiric antibiotics with Levaquin and Flagyl. 2. Continue with a clear liquid diet today. 3. Pain medications as needed. 4. Hold Eliquis for now. 5. If her symptoms improve, she can as tolerated tomorrow and she can be discharged home in the next 1-2 days. 6. No plans for any endoscopy intervention at the present time. Will follow with you closely. Thank you for this consultation. MMODL / IJN: [id number] /
[2019-07-20 18:22] LABS: HCT 38.8 % (34.0-46.0); HGB 12.1 gm/dL (11.4-16.0); MCH 30.7 pg (25.0-35.0); MCHC 31.2 g/dL (31.0-37.0); MCV 98.6 fL (80.0-100.0); Mean Platelet Volume 8.5; Platelet Count 177 k/uL (150-450); RBC 3.94 m/uL (3.80-5.40); RDW 13.8 % (11.5-15.5); WBC 8.5 k/uL (3.8-10.6)
[2019-07-21] MEDS: MORPHINE SULFATE 4 MG/ML SYRINGE IV PRN (02:10)
[2019-07-21] MEDS: metroNIDAZOLE-NS PMX 500 MG in SALINE 1 100ML.BAG IVPB SCH ×3 (04:42→20:11)
[2019-07-21] MEDS: ONDANSETRON 4 MG/2 ML VIAL IVP PRN (06:19)
[2019-07-21 06:52] LABS: Basophils % (A) 0 %; Eosinophils # (A) 0.2 k/uL (0-0.7); Eosinophils % (A) 3 %; HCT 36.1 % (34.0-46.0); HGB 11.5 gm/dL (11.4-16.0); Lymphocytes # (A) 0.6 k/uL (1.0-4.8); Lymphocytes % (A) 9 %; MCH 31.2 pg (25.0-35.0); MCHC 31.8 g/dL (31.0-37.0); MCV 98.3 fL (80.0-100.0); Mean Platelet Volume 8.6; Monocytes # (A) 0.4 k/uL (0-1.0); Monocytes % (A) 7 %; Neutrophils # (A) 4.7 k/uL (1.3-7.7); Neutrophils % (A) 78 %; Platelet Count 151 k/uL (150-450); RBC 3.67 m/uL (3.80-5.40); RDW 13.9 % (11.5-15.5); WBC 6.1 k/uL (3.8-10.6)
[2019-07-21 07:00] LABS: ALT 44 U/L (4-34); AST 49 U/L (14-36); African American GFR (CKD) >90 (>60 ml/min/1.73 sqM); Albumin 2.6 g/dL (3.5-5.0); Alkaline Phosphatase 227 U/L (38-126); Anion Gap 3 mmol/L; Bilirubin,Unconjugated 0.9 mg/dL (0.0-1.1); Blood Urea Nitrogen 7 mg/dL (7-17); Carbon Dioxide 25 mmol/L (22-30); Chloride 110 mmol/L (98-107); Glucose 86 mg/dL (74-99); Non-African American GFR(CKD) 89 (>60 ml/min/1.73 sqM); Potassium 3.6 mmol/L (3.5-5.1); Sodium 138 mmol/L (137-145); Total Bilirubin 0.8 mg/dL (0.2-1.3); Total Protein 5.3 g/dL (6.3-8.2)
[2019-07-21] MEDS ORDERED: DICYCLOMINE 10 MG CAP PO PRN (11:11)
[2019-07-21] MEDS: LACTATED RINGERS 1,000 ML IV SCH (11:17)
[2019-07-21] MEDS: PANTOPRAZOLE 40 MG TABLET PO SCH (11:18)
[2019-07-21] MEDS: METOPROLOL TARTRATE 12.5 MG TAB PO SCH ×2 (11:18→20:09)
[2019-07-21] MEDS: SODIUM CHLORIDE 0.9% 1,000 ML IV SCH (11:19)
[2019-07-21] MEDS: CEFDINIR 300 MG CAP PO SCH (11:22)
[2019-07-21] MEDS: PIPERACILLIN-TAZOBACTAM 3.375 GM in SODIUM CHLORIDE 0.9% 100 ML IVPB SCH ×2 (12:46→20:10)
[2019-07-21 14:11] LABS: Basophils % (A) 0 %; Eosinophils # (A) 0.1 k/uL (0-0.7); Eosinophils % (A) 1 %; HCT 38.5 % (34.0-46.0); HGB 12.9 gm/dL (11.4-16.0); Lymphocytes # (A) 0.5 k/uL (1.0-4.8); Lymphocytes % (A) 5 %; MCHC 33.6 g/dL (31.0-37.0); MCV 95.4 fL (80.0-100.0); Mean Platelet Volume 9.6; Monocytes # (A) 0.4 k/uL (0-1.0); Monocytes % (A) 4 %; Neutrophils # (A) 8.4 k/uL (1.3-7.7); Neutrophils % (A) 90 %; Platelet Count 185 k/uL (150-450); RBC 4.04 m/uL (3.80-5.40); WBC 9.4 k/uL (3.8-10.6)
--- NOTE | 2019-07-21 15:53 | P.GSCN ---
History of Present Illness Consult date: 07/21/19 Reason for Consult: colitis, biliary stent Requesting physician: Vicente E Sheet History of present illness: CHIEF COMPLAINT: Abdominal pain, biliary stent HISTORY OF PRESENT ILLNESS: 79-year-old female who presented to the emergency room with a chief complaint of abdominal pain and rectal bleeding. Patient has a history of cholangiocarcinoma. Patient follows with a physician out of [facility]. She underwent ERCP with stent placement in 2019. Patient examined at the bedside with Dr. Cardozo. Patient is currently denying abdominal pain. She reports having loose stools. She reports nausea. PAST MEDICAL HISTORY: See list. PAST SURGICAL HISTORY: See list. SOCIAL HISTORY: No illicit drug use. REVIEW OF SYSTEMS: CONSTITUTIONAL: Denies fever or chills. HEENT: Denies blurred vision, vision changes, or eye pain. Denies hemoptysis CARDIOVASCULAR: Denies chest pain or pressure. RESPIRATORY: No shortness of breath. GASTROINTESTINAL: Refer to [facility] for pertinent findings HEMATOLOGIC: Denies bleeding disorders. GENITOURINARY: Denies any blood in urine. SKIN: Denies pruitis. Denies rash. PHYSICAL EXAM: VITAL SIGNS: Reviewed. GENERAL: Well-developed in no acute distress. HEENT: No sclera icterus. Extraocular movements grossly intact. Moist buccal mucosa. Head is atraumatic, normocephalic. ABDOMEN: Soft. Nondistended. Nontender. NEUROLOGIC: Alert and oriented. Cranial nerves II through XII grossly intact. LABORATORY DATA: WBC 6.1. Hemoglobin 11.5. Platelet count 151. Bilirubin 0.8. AST 49. ALT 44. Stool for occult blood positive IMAGING: CT abdomen pelvis: Dilated biliary tree and markedly dilated gallbladder. Possible biliary stent malfunction. Diffuse wall thickening of the descending colon and splenic flexure of the colon. Suggestive of nonspecific colitis ASSESSMENT: 1. Acute colitis 2. History of cholangiocarcinoma with previous stent placement PLAN: Dr. Cardozo evaluated patient at the bedside. Continue treatment of colitis per GI service. Continue diet as tolerated. No surgical intervention recommended at this time. Patient encouraged to follow up with her physicians at [facility] post discharge Nurse practitioner note has been reviewed by physician. Signing provider agrees with the documented findings, assessment, and plan of care. Past Medical History Past Medical History: Atrial Fibrillation, Cancer, GERD/Reflux, Osteoarthritis (OA) Additional Past Medical History / Comment(s): Possible hepatitis B years ago, UTIs, cardiac murmur, scoliosis, DJD, cervical pain d/t position, ocular migraines, occasional numbness/tingling to toes bilateral feet, hiatal hernia, rectal prolapse, bile duct carncinoma History of Any Multi-Drug Resistant Organisms: None Reported Past Surgical History: Appendectomy, Breast Surgery, Hernia Repair, Hysterectomy Additional Past Surgical History / Comment(s): Umbilical hernia repair, EGD, colonoscopy, bilateral cataract removals/lens implants, L breast benign biopsy, ercp Past Anesthesia/Blood Transfusion Reactions: Family History of Problems w/ Anesthesia, Postoperative Nausea & Vomiting (PONV) Additional Past Anesthesia/Blood Transfusion Reaction / Comm: Pt states her mother's heart stopped during gallbladder surgery. Past Psychological History: No Psychological Hx Reported Additional Psychological History / Comment(s): Pt resides alone. She is indpend ent. Smoking Status: Never smoker Past Alcohol Use History: None Reported Past Drug Use History: None Reported - Past Family History Mother Family Medical History: Coronary Artery Disease (CAD), CVA/TIA Additional Family Medical History / Comment(s): Mother had cardiac valve disease. She from a postop CVA. Father Additional Family Medical History / Comment(s): Father had myasthenia gravis. Medications and Allergies Home Medications Medication Instructions Recorded Confirmed Type Apixaban [Eliquis] 5 mg PO BID #60 tab 10/02/16 07/20/19 Rx Pantoprazole Sodium [Protonix] 40 mg PO DAILY 11/15/18 07/20/19 History Metoprolol Tartrate [Lopressor] 12.5 mg PO BID 01/09/19 07/20/19 History Acetaminophen [Tylenol] 500 mg PO Q8H PRN 07/20/19 07/20/19 History Docusate [Colace] 100 mg PO BID PRN 07/20/19 07/20/19 History Multivitamins, Thera [Multivitamin 1 tab PO DAILY 07/20/19 07/20/19 History (formulary)] Polyethylene Glycol 3350 [Miralax] 17 gm PO DAILY PRN 07/20/19 07/20/19 History Allergies Allergy/AdvReac Type Severity Reaction Status Date / Time adhesive tape Allergy Unknown Verified 07/20/19 08:21 cefuroxime Allergy Itching Verified 07/20/19 08:21 levofloxacin [From Levaquin] Allergy Rash/Hives Verified 07/20/19 08:21 Additives in inhalers AdvReac Rapid Uncoded 07/20/19 01:08 Heart Rate Surgical - Exam Vital Signs Temp Pulse Resp BP Pulse Ox 98.1 F 108 H 16 139/74 100 07/20/19 01:03 07/20/19 01:03 07/20/19 01:03 07/20/19 01:03 07/20/19 01:03 Results - Labs 07/21/19 06:03 07/21/19 06:03 Abnormal Lab Results - Last 24 Hours (Table) 07/21/19 07/21/19 07/21/19 Range/Units 01:35 06:03 06:03 RBC 3.67 L (3.80-5.40) m/uL Neutrophils # 8.4 H (1.3-7.7) k/uL Lymphocytes # 0.5 L 0.6 L (1.0-4.8) k/uL Chloride 110 H (98-107) mmol/L Calcium 8.0 L (8.4-10.2) mg/dL AST 49 H (14-36) U/L ALT 44 H (4-34) U/L Alkaline Phosphatase 227 H (38-126) U/L Total Protein 5.3 L (6.3-8.2) g/dL Albumin 2.6 L (3.5-5.0) g/dL Diabetes panel 07/21/19 Range/Units 06:03 Sodium 138 (137-145) mmol/L Potassium 3.6 (3.5-5.1) mmol/L Chloride 110 H (98-107) mmol/L Carbon Dioxide 25 (22-30) mmol/L BUN 7 (7-17) mg/dL Creatinine 0.54 (0.52-1.04) mg/dL Glucose 86 (74-99) mg/dL Calcium 8.0 L (8.4-10.2) mg/dL AST 49 H (14-36) U/L ALT 44 H (4-34) U/L Alkaline Phosphatase 227 H (38-126) U/L Total Protein 5.3 L (6.3-8.2) g/dL Albumin 2.6 L (3.5-5.0) g/dL Calcium panel 07/21/19 Range/Units 06:03 Calcium 8.0 L (8.4-10.2) mg/dL Albumin 2.6 L (3.5-5.0) g/dL Pituitary panel 07/21/19 Range/Units 06:03 Sodium 138 (137-145) mmol/L Potassium 3.6 (3.5-5.1) mmol/L Chloride 110 H (98-107) mmol/L Carbon Dioxide 25 (22-30) mmol/L BUN 7 (7-17) mg/dL Creatinine 0.54 (0.52-1.04) mg/dL Glucose 86 (74-99) mg/dL Calcium 8.0 L (8.4-10.2) mg/dL Adrenal panel 07/21/19 Range/Units 06:03 Sodium 138 (137-145) mmol/L Potassium 3.6 (3.5-5.1) mmol/L Chloride 110 H (98-107) mmol/L Carbon Dioxide 25 (22-30) mmol/L BUN 7 (7-17) mg/dL Creatinine 0.54 (0.52-1.04) mg/dL Glucose 86 (74-99) mg/dL Calcium 8.0 L (8.4-10.2) mg/dL Total Bilirubin 0.8 (0.2-1.3) mg/dL AST 49 H (14-36) U/L ALT 44 H (4-34) U/L Alkaline Phosphatase 227 H (38-126) U/L Total Protein 5.3 L (6.3-8.2) g/dL Albumin 2.6 L (3.5-5.0) g/dL
--- NOTE | 2019-07-21 19:29 | P.PN ---
Progress Note - Text Progress Note Date: 07/21/19 Presenting complaint: Abdominal pain and diarrhea History of presenting complaint: This is a pleasant 79 years old female with past medical history of atrial fibrillation on Eliquis, osteoarthritis, GERD, possible hepatitis B, cervical pain, occasional numbness in bilateral feet hiatal hernia, rectal prolapse, bile duct carcinoma. Presents because of abdominal pain and diarrhea. Patient started having abdominal pain for about one week within THE tendon progressively worse, and the left lower quadrant, non-radiating, felt like achy/colicky, about 8/10 in severity on the presentation associated with nausea but no vomiting. Patient has also diarrhea for example yesterday she had 11-12 bouts of bowel movements, they were loose and watery with little blood and that she had 1 large bloody bowel movement associated with lightheadedness and decided to come to the hospital Patient denies fever or chills, no coughing, no chest pain or dyspnea. She's the patient's of Dr. Fonseca, she follows up at [facility] for her radiotherapy to her bile duct cancer, her stents was placed also at [facility]. She follows up with Dr. Potter for her A. fib. She denies smoking alcohol or illicit drugs Admitted with-acute descending colitis. Patient was on Flagyl and Omnicef. Today-patient having nausea. Slight improvement in the abdominal pain. No bowel movement this morning.patient will does feel weak tired rundown Review of systems: Was done for constitutional, cardiovascular, GI, pulmonary. relevant finding as above Active Medications Acetaminophen (Tylenol Tab) 650 mg PO Q6HR PRN PRN Reason: Mild Pain or Fever > 100.5 Al Hydroxide/Mg Hydroxide (Maalox) 15 ml PO Q6HR PRN PRN Reason: Indigestion Dicyclomine HCl (Bentyl) 10 mg PO QID PRN PRN Reason: Dyspepsia Docusate Sodium (Colace) 100 mg PO BID PRN PRN Reason: Constipation Metronidazole 500 mg/ IV (Solution) 100 mls @ 100 mls/hr IVPB Q8H [facility] Last Admin: 07/21/19 11:17 Dose: 100 mls/hr Documented by: Lactated Ringer's (Lactated Ringers) 1,000 mls @ 125 mls/hr IV .Q8H [facility] Last Admin: 07/21/19 11:17 Dose: 125 mls/hr Documented by: Piperacillin Sod/Tazobactam (Sod 3.375 gm/ Sodium Chloride) 100 mls @ 25 mls/hr IVPB Q8H [facility] Last Admin: 07/21/19 12:46 Dose: 25 mls/hr Documented by: Metoprolol Tartrate (Lopressor) 12.5 mg PO BID [facility] Last Admin: 07/21/19 11:18 Dose: 12.5 mg Documented by: Morphine Sulfate (Morphine Sulfate (Inj)) 4 mg IV Q4HR PRN PRN Reason: Severe Pain Last Admin: 07/21/19 02:10 Dose: 4 mg Documented by: Naloxone HCl (Narcan) 0.2 mg IV Q2M PRN PRN Reason: Opioid Reversal Ondansetron HCl (Zofran) 4 mg IVP Q8HR PRN PRN Reason: Nausea And Vomiting Last Admin: 07/21/19 06:19 Dose: 4 mg Documented by: Pantoprazole Sodium (Protonix) 40 mg PO DAILY [facility] Last Admin: 07/21/19 11:18 Dose: 40 mg Documented by: On examination: VITAL SIGNS: [97.8, 83, 17, 128 was 35, 97% on room air] GENERAL APPEARANCE: sitting up in bed, but tired. HEENT: Normal external appearance of nose and ear. Oral cavity normal EYES: Pupils equal. Conjunctiva normal. NECK: JVD not raised. Mass not palpable. RESPIRATORY: Respiratory effort normal. Lungs clear to auscultation. CARDIOVASCULAR: First and second sounds normal. No edema. ABDOMEN: Soft. tenderness, no guarding or rigidity, pulse is presentLiver and spleen not palpable. No tenderness. No mass palpable. PSYCHIATRY: Alert and oriented x3. Mood and affect normal. INVESTIGATIONS, reviewed in the clinical context: white count 6.1 hemoglobin 11.5 potassium 3.6 creatinine 0.54 AST 49 ALT 44 albumin 2.6 Previous testing: white count 8.5 Liver ultrasound-left lobe is atrophic, some biliary ductal dilation present. biliary stent noted.hydropic gallbladder-suggestion of bili stent malfunction CT abdomen and pelvis with contrast-dilated biliary tree with markedly dilated gallbladder suggestive of bile stent malfunction. Wall thickening of the splenic flexure of the colon extending into the descending colon. Cecum appears to be normal. Assessment: -Acute descending colon colitis possibly ischemic -Hydropic gallbladder with the possibility of bili stent malfunction -Persistent atrial fibrillation -GERD -Family osteoarthritis -Scoliosis -cholangiocarcinoma carcinoma with a [facility], followed by radiation treatment. Plan Patient had been on IV Flagyl and Omnicef. 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 Other medications to continue. Also IV fluids of increased.:patient had been on a clear liquid diet.diet has been advanced by surgery to full liquid diet. Encouraged to sit up in a chair.
[2019-07-21 20:10] LABS: Basophils % (A) 0 %; Eosinophils # (A) 0.1 k/uL (0-0.7); Eosinophils % (A) 2 %; HCT 36.9 % (34.0-46.0); HGB 12.1 gm/dL (11.4-16.0); Lymphocytes # (A) 0.7 k/uL (1.0-4.8); Lymphocytes % (A) 9 %; MCHC 32.8 g/dL (31.0-37.0); MCV 97.4 fL (80.0-100.0); Mean Platelet Volume 8.7; Monocytes # (A) 0.5 k/uL (0-1.0); Monocytes % (A) 7 %; Neutrophils # (A) 5.8 k/uL (1.3-7.7); Neutrophils % (A) 80 %; Platelet Count 192 k/uL (150-450); RBC 3.79 m/uL (3.80-5.40); WBC 7.3 k/uL (3.8-10.6)
[2019-07-22] MEDS: ONDANSETRON 4 MG/2 ML VIAL IVP PRN (01:38)
[2019-07-22] MEDS: LACTATED RINGERS 1,000 ML IV SCH ×3 (01:40→15:45)
[2019-07-22 02:21] LABS: Basophils % (A) 0 %; Eosinophils # (A) 0.2 k/uL (0-0.7); Eosinophils % (A) 3 %; HCT 36.4 % (34.0-46.0); HGB 11.8 gm/dL (11.4-16.0); Lymphocytes # (A) 0.6 k/uL (1.0-4.8); Lymphocytes % (A) 7 %; MCH 31.5 pg (25.0-35.0); MCHC 32.4 g/dL (31.0-37.0); Mean Platelet Volume 9.2; Monocytes # (A) 0.6 k/uL (0-1.0); Monocytes % (A) 7 %; Neutrophils # (A) 6.6 k/uL (1.3-7.7); Neutrophils % (A) 81 %; Platelet Count 191 k/uL (150-450); RBC 3.75 m/uL (3.80-5.40); RDW 14.1 % (11.5-15.5); WBC 8.1 k/uL (3.8-10.6)
[2019-07-22] MEDS: metroNIDAZOLE-NS PMX 500 MG in SALINE 1 100ML.BAG IVPB SCH ×3 (03:26→19:07)
[2019-07-22] MEDS: PIPERACILLIN-TAZOBACTAM 3.375 GM in SODIUM CHLORIDE 0.9% 100 ML IVPB SCH ×3 (03:26→19:38)
[2019-07-22 06:54] LABS: ALT 38 U/L (4-34); AST 56 U/L (14-36); African American GFR (CKD) >90 (>60 ml/min/1.73 sqM); Albumin 2.8 g/dL (3.5-5.0); Alkaline Phosphatase 223 U/L (38-126); Anion Gap 6 mmol/L; Blood Urea Nitrogen 7 mg/dL (7-17); Calcium 8.4 mg/dL (8.4-10.2); Carbon Dioxide 25 mmol/L (22-30); Chloride 105 mmol/L (98-107); Glucose 82 mg/dL (74-99); Non-African American GFR(CKD) 87 (>60 ml/min/1.73 sqM); Potassium 3.5 mmol/L (3.5-5.1); Sodium 136 mmol/L (137-145); Total Bilirubin 0.9 mg/dL (0.2-1.3); Total Protein 5.3 g/dL (6.3-8.2)
[2019-07-22] MEDS: PANTOPRAZOLE 40 MG TABLET PO SCH (08:18)
[2019-07-22] MEDS: METOPROLOL TARTRATE 12.5 MG TAB PO SCH ×2 (08:19→21:13)
--- NOTE | 2019-07-22 09:54 | P.PN ---
Subjective Progress Note Date: 07/21/19 Principal diagnosis: Colitis, cholangiocarcinoma, abdominal pain Patient is seen lying in bed still reporting some abdominal pain. She is tolerated some liquids. She did have some nausea and vomiting. Objective - Vital Signs Vital signs: Vital Signs Temp 98.1 F 07/21/19 05:07 Pulse 79 07/21/19 05:07 Resp 16 07/21/19 05:07 BP 104/59 07/21/19 05:07 Pulse Ox 98 07/21/19 05:07 Intake & Output 07/20/19 07/21/19 07/21/19 18:59 06:59 18:59 Intake Total 200 Balance 200 Intake: Oral 200 Other: # Voids 1 1 - Exam On physical examination, patient appears comfortable in no apparent distress. HEAD: Normocephalic, atraumatic. EYES: No scleral icterus. No conjunctival injection. MOUTH: No lesions, tongue midline. NECK: Trachea midline, no gross abnormalities. CHEST: Clear to auscultation with no wheezing or rhonchi appreciated. ABDOMEN: Soft. Bowel sounds are positive. No organomegaly. No guarding or rigidity. EXTREMITIES: No pedal edema. SKIN: No rashes, no jaundice. NEUROLOGIC: Alert and oriented x3. No focal deficits. - Labs CBC & Chem 7: 07/22/19 00:57 07/22/19 05:41 Labs: Abnormal Lab Results - Last 24 Hours (Table) 07/21/19 07/21/19 Range/Units 06:03 06:03 RBC 3.67 L (3.80-5.40) m/uL Lymphocytes # 0.6 L (1.0-4.8) k/uL Chloride 110 H (98-107) mmol/L Calcium 8.0 L (8.4-10.2) mg/dL AST 49 H (14-36) U/L ALT 44 H (4-34) U/L Alkaline Phosphatase 227 H (38-126) U/L Total Protein 5.3 L (6.3-8.2) g/dL Albumin 2.6 L (3.5-5.0) g/dL Assessment and Plan (1) Colitis Narrative/Plan: 79-year-old female who presents to the hospital with complaints of severe lower abdominal pain followed by diarrhea and bloody bowel movements. Computed tomography scan of the abdomen showed thickening of the descending colon up to the splenic flexure with inspiration for ischemic colitis, less likely infectious colitis or inflammatory process. No further episodes of bleeding however pain has continued. Patient has a history of cholangiocarcinoma treated with ERCP and stent placement as well as radiation therapy at the [facility]. Current Visit: Yes Status: Acute Code(s): K52.9 - NONINFECTIVE GASTROENTERITIS AND COLITIS, UNSPECIFIED SNOMED Code(s): 48346019 (2) Abdominal pain Current Visit: Yes Status: Acute Code(s): R10.9 - UNSPECIFIED ABDOMINAL PAIN SNOMED Code(s): 51265648 Plan: Supportive care Okay to advance to full liquid diet Bentyl added as needed for abdominal pain Continue broad-spectrum antibiotic therapy Continue to monitor CBC, BMP, LFTs Continue to monitor her symptomatically Thank you for allowing us to despite in the care of the patient we will continue to follow
--- NOTE | 2019-07-22 14:16 | P.PN ---
Subjective Progress Note Date: 07/22/19 CHIEF COMPLAINT: Abdominal pain, biliary stent HISTORY OF PRESENT ILLNESS: Patient examined at the bedside with Dr. Cardozo. Patient is currently denying abdominal pain. She reports nausea. No vomiting. Passing flatus. Denies further rectal bleeding. WBC 8.1. Hemoglobin 11.8. PHYSICAL EXAM: VITAL SIGNS: Reviewed. GENERAL: Well-developed in no acute distress. HEENT: No sclera icterus. Extraocular movements grossly intact. Moist buccal mucosa. Head is atraumatic, normocephalic. ABDOMEN: Soft. Nondistended. Nontender. NEUROLOGIC: Alert and oriented. Cranial nerves II through XII grossly intact. ASSESSMENT: 1. Acute colitis 2. History of cholangiocarcinoma with previous stent placement PLAN: Dr. Cardozo evaluated patient at the bedside. Continue treatment of colitis per GI service. Continue diet as tolerated. No surgical intervention recommended at this time. Patient encouraged to [facility] Nurse practitioner note has been reviewed by physician. Signing provider agrees with the documented findings, assessment, and plan of care. Objective - Vital Signs Vital signs: Vital Signs Temp 98.1 F 07/22/19 04:58 Pulse 65 07/22/19 04:58 Resp 16 07/22/19 04:58 BP 133/66 07/22/19 04:58 Pulse Ox 96 07/22/19 04:58 Intake & Output 07/21/19 07/22/19 07/22/19 18:59 06:59 18:59 Intake Total 690 Output Total 300 Balance 390 Intake: Intake, IV Titration 600 Amount Piperacillin-Tazobactam 3 100 .375 gm In Sodium Chloride 0.9% 100 ml @ 25 mls/hr IVPB Q8H [facility] Rx#: [id number] Sodium Chloride 0.9% 1, 400 000 ml @ 100 mls/hr IV . Q10H [facility] Rx#:[id number] metroNIDAZOLE-NS PMX 500 100 mg In Saline 1 100ml.bag @ 100 mls/hr IVPB Q8H [facility] Rx#:[id number] Oral 90 Output: Urine 300 Other: Voiding Method Toilet Toilet Toilet # Voids 2 3 - Labs CBC & Chem 7: 07/22/19 00:57 07/22/19 05:41 Labs: Abnormal Lab Results - Last 24 Hours (Table) 07/21/19 07/21/19 07/21/19 Range/Units 01:35 06:03 19:49 RBC 3.67 L 3.79 L (3.80-5.40) m/uL Neutrophils # 8.4 H (1.3-7.7) k/uL Lymphocytes # 0.5 L 0.6 L 0.7 L (1.0-4.8) k/uL Sodium (137-145) mmol/L AST (14-36) U/L ALT (4-34) U/L Alkaline Phosphatase (38-126) U/L Total Protein (6.3-8.2) g/dL Albumin (3.5-5.0) g/dL 07/22/19 07/22/19 Range/Units 00:57 05:41 RBC 3.75 L (3.80-5.40) m/uL Neutrophils # (1.3-7.7) k/uL Lymphocytes # 0.6 L (1.0-4.8) k/uL Sodium 136 L (137-145) mmol/L AST 56 H (14-36) U/L ALT 38 H (4-34) U/L Alkaline Phosphatase 223 H (38-126) U/L Total Protein 5.3 L (6.3-8.2) g/dL Albumin 2.8 L (3.5-5.0) g/dL
[2019-07-22] MEDS ORDERED: ALPRAZolam 0.25 MG TAB PO PRN (17:26)
--- NOTE | 2019-07-22 20:03 | P.PN ---
Progress Note - Text Progress Note Date: 07/22/19 Presenting complaint: Abdominal pain and diarrhea History of presenting complaint: This is a pleasant 79 years old female with past medical history of atrial fibrillation on Eliquis, osteoarthritis, GERD, possible hepatitis B, cervical pain, occasional numbness in bilateral feet hiatal hernia, rectal prolapse, bile duct carcinoma. Presents because of abdominal pain and diarrhea. Patient started having abdominal pain for about one week within THE tendon progressively worse, and the left lower quadrant, non-radiating, felt like achy/colicky, about 8/10 in severity on the presentation associated with nausea but no vomiting. Patient has also diarrhea for example yesterday she had 11-12 bouts of bowel movements, they were loose and watery with little blood and that she had 1 large bloody bowel movement associated with lightheadedness and decided to come to the hospital Patient denies fever or chills, no coughing, no chest pain or dyspnea. She's the patient's of Dr. Fonseca, she follows up at [facility] for her radiotherapy to her bile duct cancer, her stents was placed also at [facility]. She follows up with Dr. Potter for her A. fib. She denies smoking alcohol or illicit drugs Admitted with-acute descending colitis. Patient was on Flagyl and Omnicef. Today-decreasing abdominal pain. Eating better. Has been out of bed. Review of systems: Was done for constitutional, cardiovascular, GI, pulmonary. relevant finding as above Active Medications Acetaminophen (Tylenol Tab) 650 mg PO Q6HR PRN PRN Reason: Mild Pain or Fever > 100.5 Al Hydroxide/Mg Hydroxide (Maalox) 15 ml PO Q6HR PRN PRN Reason: Indigestion Alprazolam (Xanax) 0.25 mg PO Q8H PRN PRN Reason: Anxiety Dicyclomine HCl (Bentyl) 10 mg PO QID PRN PRN Reason: Dyspepsia Last Admin: 07/22/19 08:18 Dose: 10 mg Documented by: Docusate Sodium (Colace) 100 mg PO BID PRN PRN Reason: Constipation Metronidazole 500 mg/ IV (Solution) 100 mls @ 100 mls/hr IVPB Q8H [facility] Last Admin: 07/22/19 19:07 Dose: 100 mls/hr Documented by: Lactated Ringer's (Lactated Ringers) 1,000 mls @ 125 mls/hr IV .Q8H [facility] Last Admin: 07/22/19 15:45 Dose: Not Given Documented by: Piperacillin Sod/Tazobactam (Sod 3.375 gm/ Sodium Chloride) 100 mls @ 25 mls/hr IVPB Q8H [facility] Last Admin: 07/22/19 19:38 Dose: 25 mls/hr Documented by: Metoprolol Tartrate (Lopressor) 12.5 mg PO BID [facility] Last Admin: 07/22/19 08:19 Dose: 12.5 mg Documented by: Morphine Sulfate (Morphine Sulfate (Inj)) 4 mg IV Q4HR PRN PRN Reason: Severe Pain Last Admin: 07/21/19 02:10 Dose: 4 mg Documented by: Naloxone HCl (Narcan) 0.2 mg IV Q2M PRN PRN Reason: Opioid Reversal Ondansetron HCl (Zofran) 4 mg IVP Q8HR PRN PRN Reason: Nausea And Vomiting Last Admin: 07/22/19 01:38 Dose: 4 mg Documented by: Pantoprazole Sodium (Protonix) 40 mg PO DAILY [facility] Last Admin: 07/22/19 08:18 Dose: 40 mg Documented by: On examination: VITAL SIGNS: 98.2, 63, 17, 116/57, 94% room air GENERAL APPEARANCE: sitting up in bed, looking better. HEENT: Normal external appearance of nose and ear. Oral cavity normal EYES: Pupils equal. Conjunctiva normal. NECK: JVD not raised. Mass not palpable. RESPIRATORY: Respiratory effort normal. Lungs clear to auscultation. CARDIOVASCULAR: First and second sounds normal. No edema. ABDOMEN: Soft. Decreased tenderness, no guarding or rigidity, pulse is presentLiver and spleen not palpable. No tenderness. No mass palpable. PSYCHIATRY: Alert and oriented x3. Mood and affect normal. INVESTIGATIONS, reviewed in the clinical context: White count 8.1 hemoglobin 11.8 progression 3.5 creatinine 0.59 Previous testing: white count 8.5 Liver ultrasound-left lobe is atrophic, some biliary ductal dilation present. biliary stent noted.hydropic gallbladder-suggestion of bili stent malfunction CT abdomen and pelvis with contrast-dilated biliary tree with markedly dilated gallbladder suggestive of bile stent malfunction. Wall thickening of the splenic flexure of the colon extending into the descending colon. Cecum appears to be normal. Assessment: -Acute descending colon colitis possibly ischemic-improving -Hydropic gallbladder with the possibility of bili stent malfunction -Persistent atrial fibrillation -GERD -Family osteoarthritis -Scoliosis -cholangiocarcinoma carcinoma with a bile duct stentactivity [facility], followed by radiation treatment. Plan Thank you looking better. Continue with IV Flagyl and IV Zosyn. On a full liquid diet. Advance to a soft bland diet in the morning.
[2019-07-23] MEDS: LACTATED RINGERS 1,000 ML IV SCH ×2 (03:03→09:11)
[2019-07-23] MEDS: PIPERACILLIN-TAZOBACTAM 3.375 GM in SODIUM CHLORIDE 0.9% 100 ML IVPB SCH (03:04)
[2019-07-23] MEDS: metroNIDAZOLE-NS PMX 500 MG in SALINE 1 100ML.BAG IVPB SCH (03:04)
[2019-07-23] MEDS: PANTOPRAZOLE 40 MG TABLET PO SCH (09:11)
[2019-07-23] MEDS: METOPROLOL TARTRATE 12.5 MG TAB PO SCH (09:11)
[2019-07-23 12:26] VITALS: BP 111/66; PULSE 79; RESP 16; TEMP 97.9
--- NOTE | 2019-07-23 13:25 | P.PN ---
Subjective Progress Note Date: 07/23/19 CHIEF COMPLAINT: Abdominal pain HISTORY OF PRESENT ILLNESS: The patient is an 79-year-old female with history of abdominal pain and history of biliary stent including blood in stools. She has history of cholangiocarcinoma with stent placement and sees providers from [facility]. Her abdominal pain has improved. ROS: No reports of nausea and vomiting. No bowel movements. No fevers or chills. No new chest pain. No productive sputum PHYSICAL EXAM: VITAL SIGNS: Reviewed CONSTITUTIONAL: Well developed and in no acute distress. EYES: Conjuctivae without sclera icterus. Extraocular movements grossly intact. HEAD, EARS, NOSE, THROAT: Moist buccal mucosa. Head is atraumatic, normocephalic. Hears conversational speech. No nasal drainage. NECK: Supple. No thyroidomegaly. RESPIRATORY: Non-labored respirations and equal bilateral excursions. CARDIOVASCULAR: Palpable 2+ radial pulses. ABDOMEN: No peritonitis. MUSCULOSKELETAL: No gross deformity of the lower extremities noted. No cl ubbing. No cyanosis. SKIN: Good skin turgor. Well perfused. NEUROLOGIC: Cranial nerves II through XII grossly intact. No focal or lateralizing signs. PSYCH: Appropriate affect. Alert and oriented to person, place and time. CLINICAL LABS: No new labs ASSESSMENT: 1. Abdominal pain 2. Cholangiocarcinoma PLAN: 1. She reports her abdominal pain is better. 2. Stable for discharge. Objective - Vital Signs Vital signs: Vital Signs Temp 97.9 F 07/23/19 12:25 Pulse 79 07/23/19 12:25 Resp 16 07/23/19 12:25 BP 111/66 07/23/19 12:25 Pulse Ox 98 07/23/19 12:25 Intake & Output 07/22/19 07/23/19 07/23/19 18:59 06:59 18:59 Other: Voiding Method Toilet Toilet Toilet # Voids 3 2 # Bowel Movements 2 - Labs CBC & Chem 7: 07/22/19 00:57 07/22/19 05:41 Labs: Abnormal Lab Results - Last 24 Hours (Table) 07/22/19 Range/Units 09:45 Stool Lactoferrin POSITIVE H (NEGATIVE) Microbiology - Last 24 Hours (Table) 07/22/19 09:45 Stool Culture - Preliminary Stool
--- NOTE | 2019-07-23 15:20 | P.PN ---
Subjective Progress Note Date: 07/22/19 Principal diagnosis: Colitis, cholangiocarcinoma, abdominal pain Patient is seen lying in bed reporting that she is feeling better. Less abdominal pain with no blood with bowel movement today. Objective - Vital Signs Vital signs: Vital Signs Temp 98.1 F 07/22/19 04:58 Pulse 65 07/22/19 04:58 Resp 16 07/22/19 04:58 BP 133/66 07/22/19 04:58 Pulse Ox 96 07/22/19 04:58 Intake & Output 07/21/19 07/22/19 07/22/19 18:59 06:59 18:59 Intake Total 690 Output Total 300 Balance 390 Intake: Intake, IV Titration 600 Amount Piperacillin-Tazobactam 3 100 .375 gm In Sodium Chloride 0.9% 100 ml @ 25 mls/hr IVPB Q8H [facility] Rx#: [id number] Sodium Chloride 0.9% 1, 400 000 ml @ 100 mls/hr IV . Q10H [facility] Rx#:[id number] metroNIDAZOLE-NS PMX 500 100 mg In Saline 1 100ml.bag @ 100 mls/hr IVPB Q8H [facility] Rx#:[id number] Oral 90 Output: Urine 300 Other: Voiding Method Toilet Toilet Toilet # Voids 2 3 - Exam On physical examination, patient appears comfortable in no apparent distress. HEAD: Normocephalic, atraumatic. EYES: No scleral icterus. No conjunctival injection. MOUTH: No lesions, tongue midline. NECK: Trachea midline, no gross abnormalities. CHEST: Clear to auscultation with no wheezing or rhonchi appreciated. ABDOMEN: Soft. Bowel sounds are positive. No organomegaly. No guarding or rigidity. EXTREMITIES: No pedal edema. SKIN: No rashes, no jaundice. NEUROLOGIC: Alert and oriented x3. No focal deficits. - Labs CBC & Chem 7: 07/22/19 00:57 07/22/19 05:41 Labs: Abnormal Lab Results - Last 24 Hours (Table) 07/21/19 07/21/19 07/21/19 Range/Units 01:35 06:03 19:49 RBC 3.67 L 3.79 L (3.80-5.40) m/uL Neutrophils # 8.4 H (1.3-7.7) k/uL Lymphocytes # 0.5 L 0.6 L 0.7 L (1.0-4.8) k/uL Sodium (137-145) mmol/L AST (14-36) U/L ALT (4-34) U/L Alkaline Phosphatase (38-126) U/L Total Protein (6.3-8.2) g/dL Albumin (3.5-5.0) g/dL 07/22/19 07/22/19 Range/Units 00:57 05:41 RBC 3.75 L (3.80-5.40) m/uL Neutrophils # (1.3-7.7) k/uL Lymphocytes # 0.6 L (1.0-4.8) k/uL Sodium 136 L (137-145) mmol/L AST 56 H (14-36) U/L ALT 38 H (4-34) U/L Alkaline Phosphatase 223 H (38-126) U/L Total Protein 5.3 L (6.3-8.2) g/dL Albumin 2.8 L (3.5-5.0) g/dL Assessment and Plan (1) Abdominal pain Status: Acute Code(s): R10.9 - UNSPECIFIED ABDOMINAL PAIN SNOMED Code(s): 11755323 (2) Colitis Narrative/Plan: 79-year-old female who presents to the hospital with complaints of severe lower abdominal pain followed by diarrhea and bloody bowel movements. Computed tomography scan of the abdomen showed thickening of the descending colon up to the splenic flexure with inspiration for ischemic colitis, less likely infectious colitis or inflammatory process. No further episodes of bleeding however pain has continued. Patient has a history of cholangiocarcinoma treated with ERCP and stent placement as well as radiation therapy at the [facility]. Status: Acute Code(s): K52.9 - NONINFECTIVE GASTROENTERITIS AND COLITIS, UNSPECIFIED SNOMED Code(s): 20245928 Plan: Supportive care Okay for diet as tolerated Bentyl added as needed for abdominal pain Continue broad-spectrum antibiotic therapy Continue to monitor CBC, BMP, LFTs Continue to monitor her symptomatically Thank you for allowing us to despite in the care of the patient we will continue to follow
--- NOTE | 2019-07-23 15:22 | P.PN ---
Subjective Progress Note Date: 07/23/19 Principal diagnosis: Colitis, cholangiocarcinoma, abdominal pain Patient is seen lying in bed reporting less abdominal pain and that she has tolerated her diet this morning. Bowel movement this morning with no signs of blood. Patient is asking for discharge home. Objective - Vital Signs Vital signs: Vital Signs Temp 97.8 F 07/23/19 05:00 Pulse 67 07/23/19 05:00 Resp 12 07/23/19 05:00 BP 124/69 07/23/19 05:00 Pulse Ox 97 07/23/19 05:00 Intake & Output 07/22/19 07/23/19 07/23/19 18:59 06:59 18:59 Other: Voiding Method Toilet Toilet Toilet # Voids 3 2 # Bowel Movements 2 - Exam On physical examination, patient appears comfortable in no apparent distress. HEAD: Normocephalic, atraumatic. EYES: No scleral icterus. No conjunctival injection. MOUTH: No lesions, tongue midline. NECK: Trachea midline, no gross abnormalities. CHEST: Clear to auscultation with no wheezing or rhonchi appreciated. ABDOMEN: Soft. Bowel sounds are positive. No organomegaly. No guarding or rigidity. EXTREMITIES: No pedal edema. SKIN: No rashes, no jaundice. NEUROLOGIC: Alert and oriented x3. No focal deficits. - Labs CBC & Chem 7: 07/22/19 00:57 07/22/19 05:41 Labs: Abnormal Lab Results - Last 24 Hours (Table) 07/22/19 Range/Units 09:45 Stool Lactoferrin POSITIVE H (NEGATIVE) Microbiology - Last 24 Hours (Table) 07/22/19 09:45 Stool Culture - Preliminary Stool Assessment and Plan (1) Colitis Narrative/Plan: 79-year-old female who presents to the hospital with complaints of severe lower abdominal pain followed by diarrhea and bloody bowel movements. Computed tomography scan of the abdomen showed thickening of the descending colon up to the splenic flexure with inspiration for ischemic colitis, less likely infectious colitis or inflammatory process. No further episodes of bleeding however pain has continued. Patient has a history of cholangiocarcinoma treated with ERCP and stent placement as well as radiation therapy at the [facility]. Status: Acute Code(s): K52.9 - NONINFECTIVE GASTROENTERITIS AND COLITIS, UNSPECIFIED SNOMED Code(s): 66475955 (2) Abdominal pain Status: Acute Code(s): R10.9 - UNSPECIFIED ABDOMINAL PAIN SNOMED Code(s): 72843337 Plan: Supportive care Okay for diet as tolerated, long discussion with the patient on low fiber low residual diet Bentyl added as needed for abdominal pain Continue broad-spectrum antibiotic therapy Continue to monitor CBC, BMP, LFTs Continue to monitor her symptomatically Thank you for allowing us to participate in the care of the patient, okay for discharge from gastroenterology standpoint
--- NOTE | 2019-07-23 20:28 | P.DS ---
Providers Date of admission: 07/20/19 02:53 Expected date of discharge: 07/23/19 Attending physician: Gera Lopez Consults: 07/20/19 02:54 Consult Physician Routine Consulting Provider: Mirza Harvey Consult Reason/Comments: colitis Do you want consulting provider notified?: Yes 07/20/19 22:05 Consult Physician Urgent Consulting Provider: Rusty Cardozo Consult Reason/Comments: abdominal pain/? ischemia ,possilbe biliray stent malfunction and hydrop GB Do you want consulting provider notified?: Yes Primary care physician: Robin [facility] Course: Presenting complaint: Abdominal pain and diarrhea History of presenting complaint: This is a pleasant 79 years old female with past medical history of atrial fibr illation on Eliquis, osteoarthritis, GERD, possible hepatitis B, cervical pain, occasional numbness in bilateral feet hiatal hernia, rectal prolapse, bile duct carcinoma. Presents because of abdominal pain and diarrhea. Patient started having abdominal pain for about one week within THE tendon progressively worse, and the left lower quadrant, non-radiating, felt like achy/colicky, about 8/10 in severity on the presentation associated with nausea but no vomiting. Patient has also diarrhea for example yesterday she had 11-12 bouts of bowel movements, they were loose and watery with little blood and that she had 1 large bloody bowel movement associated with lightheadedness and decided to come to the hospital Patient denies fever or chills, no coughing, no chest pain or dyspnea. She's the patient's of Dr. Fonseca, she follows up at [facility] for her radiotherapy to her bile duct cancer, her stents was placed also at [facility]. She follows up with Dr. Potter for her A. fib. She denies smoking alcohol or illicit drugs Admitted with-acute descending colitis. Patient was on Flagyl and Omnicef. Omnicef discontinued and switched to IV Zosyn. Today-the much better. No more abdominal pain. No nausea vomiting. No diarrhea. Tolerated full liquid diet. Care was discussed in detail. Questions were answered. Discharged on oral antibiotics Discussion and discharge planning more than 35 minutes Consultation: Dr. Fannie Reynaga from GI Dr. Cardozo from general surgery On examination: VITAL SIGNS: 97.9, 79, 16, 111/66, 98% on room air GENERAL APPEARANCE: Laying in bed, comfortable. HEENT: Normal external appearance of nose and ear. Oral cavity normal EYES: Pupils equal. Conjunctiva normal. NECK: JVD not raised. Mass not palpable. RESPIRATORY: Respiratory effort normal. Lungs clear to auscultation. CARDIOVASCULAR: First and second sounds normal. No edema. ABDOMEN: Soft. No tenderness, no guarding or rigidity, pulse is presentLiver and spleen not palpable. No tenderness. No mass palpable. PSYCHIATRY: Alert and oriented x3. Mood and affect normal. INVESTIGATIONS, reviewed in the clinical context: White count 8.1 hemoglobin 11.8 progression 3.5 creatinine 0.59 Previous testing: white count 8.5 Liver ultrasound-left lobe is atrophic, some biliary ductal dilation present. biliary stent noted.hydropic gallbladder-suggestion of bili stent malfunction CT abdomen and pelvis with contrast-dilated biliary tree with markedly dilated gallbladder suggestive of bile stent malfunction. Wall thickening of the splenic flexure of the colon extending into the descending colon. Cecum appears to be normal. Assessment: -Acute descending colon colitis possibly POA -Hydropic gallbladder with the possibility of bili stent malfunction -Persistent atrial fibrillation -GERD -Family osteoarthritis -Scoliosis -cholangiocarcinoma carcinoma with a bile duct [facility], followed by radiation treatment. Disposition: Home Patient Condition at Discharge: Stable Plan - Discharge Summary Discharge Rx Participant: No New Discharge Prescriptions: New Amoxicillin/Potassium Clav [Augmentin 875-125 Tablet] 1 tab PO Q12HR #14 tab Dicyclomine [Bentyl] 10 mg PO QID PRN #20 cap PRN Reason: Dyspepsia metroNIDAZOLE [Flagyl] 250 mg PO Q8H #21 tab Continue Apixaban [Eliquis] 5 mg PO BID #60 tab Pantoprazole Sodium [Protonix] 40 mg PO DAILY Metoprolol Tartrate [Lopressor] 12.5 mg PO BID Polyethylene Glycol 3350 [Miralax] 17 gm PO DAILY PRN PRN Reason: Constipation Multivitamins, Thera [Multivitamin (formulary)] 1 tab PO DAILY Acetaminophen [Tylenol] 500 mg PO Q8H PRN PRN Reason: Pain Discontinued Docusate [Colace] 100 mg PO BID PRN PRN Reason: Constipation Discharge Medication List Apixaban [Eliquis] 5 mg PO BID #60 tab 10/02/16 [Rx] Pantoprazole Sodium [Protonix] 40 mg PO DAILY 11/15/18 [History] Metoprolol Tartrate [Lopressor] 12.5 mg PO BID 01/09/19 [History] Acetaminophen [Tylenol] 500 mg PO Q8H PRN 07/20/19 [History] Multivitamins, Thera [Multivitamin (formulary)] 1 tab PO DAILY 07/20/19 [History] Polyethylene Glycol 3350 [Miralax] 17 gm PO DAILY PRN 07/20/19 [History] Amoxicillin/Potassium Clav [Augmentin 875-125 Tablet] 1 tab PO Q12HR #14 tab 07/23/19 [Rx] Dicyclomine [Bentyl] 10 mg PO QID PRN #20 cap 07/23/19 [Rx] metroNIDAZOLE [Flagyl] 250 mg PO Q8H #21 tab 07/23/19 [Rx] Follow up Appointment(s)/Referral(s): Robin Fonseca DO [Primary Care Provider] - 1-2 days (pt to call office on Thursday for follow up appt) Lynne Reynaga MD [STAFF PHYSICIAN] - 2 Weeks (pt to call office on Thursday for follow up appt) Patient Instructions/Handouts: Dicyclomine (By mouth), Metronidazole (By mouth), Amoxicillin/Clavulanate Potassium (By mouth), Gastrointestinal Bleeding (DC), Low Fiber Diet (DC) Activity/Diet/Wound Care/Special Instructions: Low fiber diet; avoid too much fresh fruit or vegetable for the first 2 weeks and avoid dairy. Discharge Disposition: HOME SELF-CARE
== END 2019-07-23 14:32 | disposition home or self-care (01) | DRG 394 ==
LOC: EC 01:02 → 5NMEDONC 02:53
PROVIDERS: ADMIT Hospitalist; ATTEND Hospitalist
DX: K55.031 Focal (segmental) acute (reversible) ischemia of large intestine (principal); I48.19 Other persistent atrial fibrillation; K82.1 Hydrops of gallbladder; T85.510A Breakdown (mechanical) of bile duct prosthesis, initial encounter; G89.29 Other chronic pain; K21.9 Gastro-esophageal reflux disease without esophagitis; K44.9 Diaphragmatic hernia without obstruction or gangrene; M19.90 Unspecified osteoarthritis, unspecified site; M41.9 Scoliosis, unspecified; Z11.59 Encounter for screening for other viral diseases; M54.2 Cervicalgia; R42 Dizziness and giddiness; R74.0 Nonspecific elevation of levels of transaminase and lactic acid dehydrogenase [LDH]; Y83.8 Other surgical procedures as the cause of abnormal reaction of the patient, or of later complication, without mention of misadventure at the time of the procedure; Z79.01 Long term (current) use of anticoagulants; Z79.899 Other long term (current) drug therapy; Z92.3 Personal history of irradiation; Z90.710 Acquired absence of both cervix and uterus; Z85.09 Personal history of malignant neoplasm of other digestive organs; Z96.1 Presence of intraocular lens; Z98.42 Cataract extraction status, left eye; Z98.41 Cataract extraction status, right eye; Z87.440 Personal history of urinary (tract) infections; Z88.1 Allergy status to other antibiotic agents; Z91.048 Other nonmedicinal substance allergy status; Z90.49 Acquired absence of other specified parts of digestive tract; Z82.49 Family history of ischemic heart disease and other diseases of the circulatory system; Z82.3 Family history of stroke; Z84.89 Family history of other specified conditions
CPT/HCPCS: 36415; 74177; 76705; 80048; 80053; 80076; 82272; 83605; 83630; 83690; 83735; 84484; 85025; 85027; 85610; 85730; 87045; 87046; 87324; 87635; 99284

== ENCOUNTER 2019-10-27 14:35 | Emergency (ER) | payer MEDICARE ==
[2019-10-27 14:41] VITALS: RESP 18; TEMP 98.3
[2019-10-27] MEDS ORDERED: SODIUM CHLORIDE 0.9% 1,000 ML IV STA (14:42)
[2019-10-27] MEDS ORDERED: PANTOPRAZOLE 40 MG/10 ML VIAL IVP STA (14:56)
[2019-10-27] MEDS ORDERED: SODIUM CHLORIDE 0.9% 500 ML 500 ML IV STA (14:56)
--- NOTE | 2019-10-27 15:21 | ED ---
Abdominal Pain HPI - General Chief Complaint: Abdominal Pain Stated Complaint: abd pain Time Seen by Provider: 10/27/19 14:41 Source: patient Mode of arrival: ambulatory Limitations: no limitations - History of Present Illness Initial Comments: 79-year-old female with history of ulcerative colitis, PUD, atrial fibrillation on anticoagulation therapy, biliary cancer presents emergency department today for chief complaint of abdominal pain and constipation. Patient states that she has had no bowel movement 1 week she states she took laxative had large bowel movement today. She that she had pain in the rectum and noted dark dark stool. Denies bloody stools. patient denies a fever and denies any nausea or vomiting. Patient states that she is also been lightheaded for the past 3 days. Patient denies any chest pain shortness of breath. Patient denies cough or URI symptoms. Patient describes the pain as sharp coming and going of the lower abdomen, left side over right. Patient has no additional complaint she appears well on arrival. - Related Data Home Medications Medication Instructions Recorded Confirmed Pantoprazole Sodium [Protonix] 40 mg PO DAILY 11/15/18 10/27/19 Metoprolol Tartrate [Lopressor] 12.5 mg PO BID 01/09/19 10/27/19 Acetaminophen [Tylenol] 1,000 mg PO Q6H PRN 07/20/19 10/27/19 polyethylene glycoL 3350 [Miralax] 17 gm PO DAILY PRN 07/20/19 10/27/19 ALPRAZolam [Xanax] 0.25 mg PO BID PRN 10/27/19 10/27/19 Docusate [Colace] 100 mg PO BID 10/27/19 10/27/19 Previous Rx's Medication Instructions Recorded Apixaban [Eliquis] 5 mg PO BID #60 tab 10/02/16 Magnesium Citrate [Citrate of 296 ml PO ONCE 1 Days #300 ml 10/27/19 Magnesia] Allergies Allergy/AdvReac Type Severity Reaction Status Date / Time adhesive tape Allergy Unknown Verified 10/27/19 16:53 cefuroxime Allergy Itching Verified 10/27/19 16:53 levofloxacin [From Levaquin] Allergy Rash/Hives Verified 10/27/19 16:53 Additives in inhalers AdvReac Rapid Uncoded 07/20/19 01:08 Heart Rate Review of Systems ROS Statement: Those systems with pertinent positive or pertinent negative responses have been documented in the HPI. ROS Other: All systems not noted in ROS Statement are negative. Past Medical History Past Medical History: Atrial Fibrillation, Cancer, GERD/Reflux, Osteoarthritis (OA) Additional Past Medical History / Comment(s): Possible hepatitis B years ago, UTIs, cardiac murmur, scoliosis, DJD, cervical pain d/t position, ocular migraines, occasional numbness/tingling to toes bilateral feet, hiatal hernia, rectal prolapse, bile duct carncinoma History of Any Multi-Drug Resistant Organisms: None Reported Past Surgical History: Appendectomy, Breast Surgery, Hernia Repair, Hysterectomy Additional Past Surgical History / Comment(s): Umbilical hernia repair, EGD, colonoscopy, bilateral cataract removals/lens implants, L breast benign biopsy, ercp Past Anesthesia/Blood Transfusion Reactions: Family History of Problems w/ Anesthesia, Postoperative Nausea & Vomiting (PONV) Additional Past Anesthesia/Blood Transfusion Reaction / Comment(s): Pt states her mother's heart stopped during gallbladder surgery. Past Psychological History: Anxiety Smoking Status: Never smoker Past Alcohol Use History: None Reported Past Drug Use History: None Reported - Past Family History Mother Family Medical History: Coronary Artery Disease (CAD), CVA/TIA Additional Family Medical History / Comment(s): Mother had cardiac valve disease. She from a postop CVA. Father Additional Family Medical History / Comment(s): Father had myasthenia gravis. General Exam - General Exam Comments Initial Comments: General: The patient is awake and alert, in no distress Eye: +3 mm pupils are equal, round and reactive to light, extra-ocular movements are intact. No nystagmus. There is normal conjunctiva bilaterally. No signs of icterus. Ears, nose, mouth and throat: There are moist mucous membranes and no oral lesions. Neck: The neck is supple, there is no tenderness or JVD. Cardiovascular: There is a regular rate and rhythm. No murmur, rub or gallop is appreciated. Respiratory: Lungs are clear to auscultation, respirations are non-labored, dipika ath sounds are equal. No wheezes, stridor, rales, or rhonchi. Gastrointestinal: Soft, non-distended, non-tender abdomen without masses or organomegaly noted. There is no rebound or guarding present. Musculoskeletal: Normal ROM, no tenderness. diffuse mild appearing abdominal pain some focalization in the left lower quadrant Strength 5/5. Sensation intact. Radial pulses equal bilaterally 2+. Neurological: A&O x 3. CN II-XII intact grossly, There are no obvious motor or sensory deficits. Coordination appears grossly intact. Speech is normal. Skin: Skin is warm and dry and no rashes or lesions are noted. Psychiatric: Cooperative, appropriate mood & affect, normal judgment. Limitations: no limitations Course Vital Signs 10/27/19 10/27/19 14:37 16:39 Temperature 98.3 F Pulse Rate 86 80 Respiratory 18 18 Rate Blood Pressure 132/77 153/65 O2 Sat by Pulse 99 98 Oximetry Medical Decision Making - Medical Decision Making 79-year-old feel presented for chief complaint of abdominal pain and constipation patient states a week ago she had vomiting diarrhea that subsided she states that she has not a bowel movement for 5 days. Patient states she had a large wound which they however at some dark stool and rectal pain. On rectal examination there is light salguero stool. Occult negative hemoglobin stable blood pressure stable patient does not appear toxic she is not tachycardic. Patient has mild pain on examination and CT no acute findings.I discussed the case mentating provider Dr. Pappas refjorge patient is stable for discharge with outpatient GI follow-up. patient will be discharged with a bowel regimen she states she currently has docusate L be prescribed magnesium citrate with instruction to increase fluids/fiber.patient is agreeable, we'll discharge at this time return parameters were discussed at length and patient verbalized understanding ventricular rate 90 bpm, NH interval 184 ms, QR zoroastrian 74 ms, QT/QTC 354/433 ms. This is normal sinus there is no ST elevation or depression as dictated changes and some artifact is noted. EKg reviewd by attending Dr. Pappas - Lab Data Result diagrams: 10/27/19 15:16 10/27/19 15:16 Lab Results 10/27/19 10/27/19 10/27/19 Range/Units 15:16 15:16 15:16 WBC 5.1 (3.8-10.6) k/uL RBC 4.09 (3.80-5.40) m/uL Hgb 12.7 (11.4-16.0) gm/dL Hct 38.6 (34.0-46.0) % MCV 94.4 (80.0-100.0) fL MCH 31.0 (25.0-35.0) pg MCHC 32.8 (31.0-37.0) g/dL RDW 13.7 (11.5-15.5) % Plt Count 182 (150-450) k/uL Neutrophils % 66 % Lymphocytes % 16 % Monocytes % 9 % Eosinophils % 5 % Basophils % 1 % Neutrophils # 3.4 (1.3-7.7) k/uL Lymphocytes # 0.8 L (1.0-4.8) k/uL Monocytes # 0.5 (0-1.0) k/uL Eosinophils # 0.2 (0-0.7) k/uL Basophils # 0.1 (0-0.2) k/uL Sodium 139 (137-145) mmol/L Potassium 3.7 (3.5-5.1) mmol/L Chloride 106 (98-107) mmol/L Carbon Dioxide 28 (22-30) mmol/L Anion Gap 5 mmol/L BUN 10 (7-17) mg/dL Creatinine 0.60 (0.52-1.04) mg/dL Est GFR (CKD-EPI)AfAm >90 (>60 ml/min/1.73 sqM) Est GFR (CKD-EPI)NonAf 87 (>60 ml/min/1.73 sqM) Glucose 104 H (74-99) mg/dL Calcium 9.0 (8.4-10.2) mg/dL Total Bilirubin 0.5 (0.2-1.3) mg/dL AST 39 H (14-36) U/L ALT 23 (4-34) U/L Alkaline Phosphatase 150 H (38-126) U/L Troponin I (0.000-0.034) ng/mL Total Protein 6.6 (6.3-8.2) g/dL Albumin 3.8 (3.5-5.0) g/dL Amylase 68 (30-110) U/L Lipase 97 (23-300) U/L Urine Color Colorless Urine Appearance Clear (Clear) Urine pH 7.5 (5.0-8.0) Ur Specific [place] 1.002 (1.001-1.035) Urine Protein Negative (Negative) Urine Glucose (UA) Negative (Negative) Urine Ketones Negative (Negative) Urine Blood Negative (Negative) Urine Nitrite Negative (Negative) Urine Bilirubin Negative (Negative) Urine Urobilinogen <2.0 (<2.0) mg/dL Ur Leukocyte Esterase Negative (Negative) Stool Occult Blood (Negative) Blood Type Blood Type Confirm Blood Type Recheck Bld Type Recheck Status Antibody Screen Spec Expiration Date 10/27/19 10/27/19 10/27/19 Range/Units 15:16 15:16 15:21 WBC (3.8-10.6) k/uL RBC (3.80-5.40) m/uL Hgb (11.4-16.0) gm/dL Hct (34.0-46.0) % MCV (80.0-100.0) fL MCH (25.0-35.0) pg MCHC (31.0-37.0) g/dL RDW (11.5-15.5) % Plt Count (150-450) k/uL Neutrophils % % Lymphocytes % % Monocytes % % Eosinophils % % Basophils % % Neutrophils # (1.3-7.7) k/uL Lymphocytes # (1.0-4.8) k/uL Monocytes # (0-1.0) k/uL Eosinophils # (0-0.7) k/uL Basophils # (0-0.2) k/uL Sodium (137-145) mmol/L Potassium (3.5-5.1) mmol/L Chloride (98-107) mmol/L Carbon Dioxide (22-30) mmol/L Anion Gap mmol/L BUN (7-17) mg/dL Creatinine (0.52-1.04) mg/dL Est GFR (CKD-EPI)AfAm (>60 ml/min/1.73 sqM) Est GFR (CKD-EPI)NonAf (>60 ml/min/1.73 sqM) Glucose (74-99) mg/dL Calcium (8.4-10.2) mg/dL Total Bilirubin (0.2-1.3) mg/dL AST (14-36) U/L ALT (4-34) U/L Alkaline Phosphatase (38-126) U/L Troponin I <0.012 (0.000-0.034) ng/mL Total Protein (6.3-8.2) g/dL Albumin (3.5-5.0) g/dL Amylase (30-110) U/L Lipase (23-300) U/L Urine Color Urine Appearance (Clear) Urine pH (5.0-8.0) Ur Specific [place] (1.001-1.035) Urine Protein (Negative) Urine Glucose (UA) (Negative) Urine Ketones (Negative) Urine Blood (Negative) Urine Nitrite (Negative) Urine Bilirubin (Negative) Urine Urobilinogen (<2.0) mg/dL Ur Leukocyte Esterase (Negative) Stool Occult Blood Negative (Negative) Blood Type A Positive Blood Type Confirm Blood Type Recheck No Previous Record Bld Type Recheck Status CABO Indicated Antibody Screen NEGATIVE Spec Expiration Date 10/30/2019 - 231510/27/19 Range/Units 16:38 WBC (3.8-10.6) k/uL RBC (3.80-5.40) m/uL Hgb (11.4-16.0) gm/dL Hct (34.0-46.0) % MCV (80.0-100.0) fL MCH (25.0-35.0) pg MCHC (31.0-37.0) g/dL RDW (11.5-15.5) % Plt Count (150-450) k/uL Neutrophils % % Lymphocytes % % Monocytes % % Eosinophils % % Basophils % % Neutrophils # (1.3-7.7) k/uL Lymphocytes # (1.0-4.8) k/uL Monocytes # (0-1.0) k/uL Eosinophils # (0-0.7) k/uL Basophils # (0-0.2) k/uL Sodium (137-145) mmol/L Potassium (3.5-5.1) mmol/L Chloride (98-107) mmol/L Carbon Dioxide (22-30) mmol/L Anion Gap mmol/L BUN (7-17) mg/dL Creatinine (0.52-1.04) mg/dL Est GFR (CKD-EPI)AfAm (>60 ml/min/1.73 sqM) Est GFR (CKD-EPI)NonAf (>60 ml/min/1.73 sqM) Glucose (74-99) mg/dL Calcium (8.4-10.2) mg/dL Total Bilirubin (0.2-1.3) mg/dL AST (14-36) U/L ALT (4-34) U/L Alkaline Phosphatase (38-126) U/L Troponin I (0.000-0.034) ng/mL Total Protein (6.3-8.2) g/dL Albumin (3.5-5.0) g/dL Amylase (30-110) U/L Lipase (23-300) U/L Urine Color Urine Appearance (Clear) Urine pH (5.0-8.0) Ur Specific [place] (1.001-1.035) Urine Protein (Negative) Urine Glucose (UA) (Negative) Urine Ketones (Negative) Urine Blood (Negative) Urine Nitrite (Negative) Urine Bilirubin (Negative) Urine Urobilinogen (<2.0) mg/dL Ur Leukocyte Esterase (Negative) Stool Occult Blood (Negative) Blood Type Blood Type Confirm A Positive Blood Type Recheck Bld Type Recheck Status Antibody Screen Spec Expiration Date Disposition Clinical Impression: Abdominal pain, Constipation Disposition: HOME SELF-CARE Condition: Good Instructions (If sedation given, give patient instructions): Abdominal Pain (ED) Additional Instructions: Please use medication as discussed. Please follow-up with family doctor in the next 2 days. Please return to emergency room if the symptoms increase or worsen or for any other concerns. Prescriptions: Magnesium Citrate [Citrate of Magnesia] 296 ml PO ONCE 1 Days #300 ml Is patient prescribed a controlled substance at d/c from ED?: No Referrals: Robin Fonseca DO [Primary Care Provider] - 1-2 days Time of Disposition: 17:30
[2019-10-27 15:25] LABS: Basophils # (A) 0.1 k/uL (0-0.2); Basophils % (A) 1 %; Eosinophils # (A) 0.2 k/uL (0-0.7); Eosinophils % (A) 5 %; HCT 38.6 % (34.0-46.0); HGB 12.7 gm/dL (11.4-16.0); Lymphocytes # (A) 0.8 k/uL (1.0-4.8); Lymphocytes % (A) 16 %; MCHC 32.8 g/dL (31.0-37.0); MCV 94.4 fL (80.0-100.0); Mean Platelet Volume 9.2; Monocytes # (A) 0.5 k/uL (0-1.0); Monocytes % (A) 9 %; Neutrophils # (A) 3.4 k/uL (1.3-7.7); Neutrophils % (A) 66 %; Platelet Count 182 k/uL (150-450); RBC 4.09 m/uL (3.80-5.40); RDW 13.7 % (11.5-15.5); WBC 5.1 k/uL (3.8-10.6)
[2019-10-27 15:34] LABS: ALT 23 U/L (4-34); AST 39 U/L (14-36); African American GFR (CKD) >90 (>60 ml/min/1.73 sqM); Albumin 3.8 g/dL (3.5-5.0); Alkaline Phosphatase 150 U/L (38-126); Amylase 68 U/L (30-110); Anion Gap 5 mmol/L; Blood Urea Nitrogen 10 mg/dL (7-17); Carbon Dioxide 28 mmol/L (22-30); Chloride 106 mmol/L (98-107); Glucose 104 mg/dL (74-99); Non-African American GFR(CKD) 87 (>60 ml/min/1.73 sqM); Potassium 3.7 mmol/L (3.5-5.1); Sodium 139 mmol/L (137-145); Total Bilirubin 0.5 mg/dL (0.2-1.3); Total Protein 6.6 g/dL (6.3-8.2)
[2019-10-27 16:25] LABS: Appearance,Urine Clear (Clear); Bilirubin,Urine Negative (Negative); Blood,Urine Negative (Negative); Color,Urine Colorless; Glucose,Urine (UA) Negative (Negative); Ketones,Urine Negative (Negative); Leukocyte Esterase,Urine Negative (Negative); Nitrite,Urine Negative (Negative); PH, Urine 7.5 (5.0-8.0); Protein,Urine Negative (Negative); Specific Gravity,Urine 1.002 (1.001-1.035); Urobilinogen,Urine <2.0 mg/dL (<2.0)
[2019-10-27 16:42] VITALS: BP 153/65; PULSE 80
--- NOTE | 2019-10-27 17:25 | CT ---
EXAMINATION TYPE: CT abdomen pelvis w con DATE OF EXAM: 10/27/2019 COMPARISON: HISTORY: Abdominal pain and black stool. CT DLP: 608.7 mGycm Automated exposure control for dose reduction was used. CONTRAST: Performed with IV Contrast, patient injected with 100 mL of Isovue 300. Multiple axial sections were obtained from the diaphragm to the floor the pelvis with IV contrast. There is mild subsegmental atelectasis at the lung bases. There is no pericardial effusion. There is no pleural effusion. There is moderate dilation of the gallbladder that measures 5.6 cm in diameter. Spleen is intact. There is small hiatal hernia. There is biliary stent. Liver shows no focal defect. There is no evidence of pancreatic mass. The intrahepatic bile ducts are not dilated. There is no adrenal mass. Kidneys show satisfactory contrast opacification. There is no hydronephrosi s. There is 1 cm cyst upper pole right kidney. Bladder distends smoothly. There is no inguinal hernia . There is no free fluid in the pelvis. There is thoracolumbar levoscoliosis. There is degenerative disc space narrowing at multiple levels o f the lumbar spine. There is no retroperitoneal adenopathy. There is no evidence of a pelvic mass. Th ere is small amount of free fluid in the pelvis. There is no mesenteric edema. There is no ascites or free air. There is no bowel obstruction. Appendi x is not seen. There is no sign of thickened appendix. IMPRESSION: Markedly dilated gallbladder unchanged compared to old exam and consistent with some chronic biliary obstruction. There is clearing of the wall thickening of the descending colon compared to old exam. T here is very small amount of free fluid in the pelvis that is a change compared to old exam.
== END 2019-10-27 18:04 | disposition home or self-care (01) ==
LOC: EC 14:35
DX: K59.00 Constipation, unspecified (principal); F41.9 Anxiety disorder, unspecified; K21.9 Gastro-esophageal reflux disease without esophagitis; I48.91 Unspecified atrial fibrillation; Z79.01 Long term (current) use of anticoagulants; Z79.899 Other long term (current) drug therapy; Z91.048 Other nonmedicinal substance allergy status; Z88.1 Allergy status to other antibiotic agents; Z90.89 Acquired absence of other organs; Z90.710 Acquired absence of both cervix and uterus
CPT/HCPCS: 36415; 93005; 86900; 86901; 80053; 82150; 83690; 84484; 85025; 86850; 82272; 81003; 74177; 99284; 96374; 96361 ×2; C9113; Q9967

== ENCOUNTER → 2019-11-21 | Outpatient (CLI) | payer MEDICARE | END | disposition home or self-care (01) | LOC: LABWHC1 07:41 | PROVIDERS: ATTEND Nurse Practitioner | DX: C24.0 Malignant neoplasm of extrahepatic bile duct (principal) | CPT/HCPCS: 36415; 86301 ==